=== PATIENT | male | born 1960 | race African-American/Black ===

== ENCOUNTER → 2016-06-13 | Outpatient (CLI) | payer MEDICARE, MEDICAID ==
[~2016-06-13] MED LIST: APRESOLINE 25MG25 MG PO; ASPIRIN 81M81 MG/TA2 PO; COREG 25MG25 MG/TAB PO; COZAAR100 MG PO; DEMADEX5 MG PO; IPRATROPIUM BROM3 M1 IH; LOZOL 2.5M2.5 MG/TAB PO; NORVASC 10MG10 MG PO; RT ADVAIR 528 DISKUS IH; RT SPIRIVA18 MCG IH; STIOLTO RESPIMAT4 GM IH; VENTOLIN0.09 MG IH; WELLBUTRIN XL150 MG PO; ZANTAC 150MG T150 MG PO
== END ==
LOC: COL.RAD 10:16
DX: R74.8 Abnormal levels of other serum enzymes (principal); N13.30 Unspecified hydronephrosis

== ENCOUNTER 2016-08-06 08:17 | Outpatient (RCR) | payer MEDICARE, OTHER ==
[~2016-08-06 08:17] MED LIST changes: -LOZOL 2.5M2.5 MG/TAB PO; -STIOLTO RESPIMAT4 GM IH; -WELLBUTRIN XL150 MG PO
[2016-10-22] MEDS ORDERED: WELLBUTRIN XL150 MG PO (09:25)
[2016-10-22] MEDS ORDERED: STIOLTO RESPIMAT4 GM IH (09:25)
[2016-10-22] MEDS ORDERED: LOZOL 2.5M2.5 MG/TAB PO (09:26)
== END 2016-11-04 | disposition home or self-care (01) ==
LOC: WSST
DX: R13.10 Dysphagia, unspecified (principal)
CPT/HCPCS: G8996-GN; G8997-GN; G8998-GN

== ENCOUNTER → 2016-08-07 | Outpatient (CLI) | payer MEDICARE, OTHER ==
[~2016-08-07] MED LIST changes: +LOZOL 2.5M2.5 MG/TAB PO; +STIOLTO RESPIMAT4 GM IH; +WELLBUTRIN XL150 MG PO
== END ==
LOC: COL.RAD 09:40
DX: R13.10 Dysphagia, unspecified (principal)
CPT/HCPCS: G8996-GN; G8997-GN; G8998-GN

== ENCOUNTER → 2016-08-28 | Outpatient (CLI) | payer MEDICARE, OTHER | LOC: COL.RAD 08:11 | DX: N13.2 Hydronephrosis with renal and ureteral calculous obstruction (principal); R91.1 Solitary pulmonary nodule | CPT/HCPCS: Q9967 ==

== ENCOUNTER → 2016-09-03 | Outpatient (CLI) | payer MEDICARE, OTHER | LOC: COL.RAD 10:17 | DX: N13.0 Hydronephrosis with ureteropelvic junction obstruction (principal) | CPT/HCPCS: A9562 ==

== ENCOUNTER 2016-09-23 14:29 | Inpatient (IN) | payer MEDICARE, OTHER ==
[~2016-09-23] VITALS: Ht 167.6 cm; Wt 83.4 kg
[~2016-09-23 14:29] MED LIST changes: -LOZOL 2.5M2.5 MG/TAB PO; -STIOLTO RESPIMAT4 GM IH; -WELLBUTRIN XL150 MG PO
[2016-10-22] VITALS (502 sets, daily range): BP systolic 101–185; BP diastolic 45–125; PULSE 76–100; TEMP 98–98.4; O2SAT 92–100
[2016-10-22] MEDS ORDERED: WELLBUTRIN XL150 MG PO (09:25)
[2016-10-22] MEDS ORDERED: STIOLTO RESPIMAT4 GM IH (09:25)
[2016-10-22] MEDS ORDERED: LOZOL 2.5M2.5 MG/TAB PO (09:26)
[2016-10-22 10:30] LABS: CALCIUM 9.1 mg/dL (8.4-10.2); CREATININE, serum 1.34 mg/dL (0.66-1.25)
[2016-10-22 10:34] LABS: POTASSIUM 2.9 mmol/L (3.4-5.0)
[2016-10-22 15:01] LABS: CALCIUM 8.2 mg/dL (8.4-10.2); CREATININE, serum 1.75 mg/dL (0.66-1.25); POTASSIUM 3.9 mmol/L (3.4-5.0)
[2016-10-22 15:57] LABS: ARTERIAL BLD GAS O2 SATURATION 97.4 % (92-100); ARTERIAL BLD GAS TCO2 CT 25.1; ARTERIAL BLOOD GAS BASE EXCESS -2.3 (-2-2); ARTERIAL BLOOD GAS HCO3 23.7 meq/L (22-26); ARTERIAL BLOOD GAS pH 7.34 (7.35-7.45); OXYHEMOGLOBIN 96.6 %
[2016-10-22 15:58] LABS: ABG VENTILATOR TIDAL VOLUME 650 mL; ATS? YES
[2016-10-22 16:24] LABS: ADJUSTED CALCIUM 8.1 mg/dL (8.4-10.2); ALBUMIN 4.1 gm/dL (3.5-5.0); BILIRUBIN,TOTAL 1.1 mg/dL (0.0-1.0); CALCIUM 8.2 mg/dL (8.4-10.2); CREATININE, serum 1.59 mg/dL (0.66-1.25); POTASSIUM 3.7 mmol/L (3.4-5.0); TOTAL PROTEIN 7.2 gm/dL (6.4-8.2)
[2016-10-22 19:04] LABS: ARTERIAL BLD GAS O2 SATURATION 98.3 % (92-100); ARTERIAL BLOOD GAS BASE EXCESS 0.7 (-2-2); ARTERIAL BLOOD GAS HCO3 25.7 meq/L (22-26); OXYHEMOGLOBIN 97.5 %
[2016-10-22 19:06] LABS: ALLEN TEST NO; ARTERIAL BLOOD GAS PO2 126.6 mmHg (80-100); ARTERIAL BLOOD GAS PO2T 126.6 (80-100); ATS? NO
[2016-10-22 20:16] LABS: LACTATE DEHYDROGENASE 618 U/L (313-618)
[2016-10-22 20:25] LABS: TROPONIN-I < 0.012 ng/mL (0.000-0.034)
[2016-10-23] VITALS (633 sets, daily range): BP systolic 129–175; BP diastolic 74–107; PULSE 86–113; TEMP 97.8–98.4; O2SAT 80–100
[2016-10-23 05:03] LABS: ARTERIAL BLD GAS O2 SATURATION 97.4 % (92-100); ARTERIAL BLD GAS TCO2 CT 23.6; ARTERIAL BLOOD GAS HCO3 22.6 meq/L (22-26); ARTERIAL BLOOD GAS PHT 7.44 C (7.35-7.45); ARTERIAL BLOOD GAS PO2 97.3 mmHg (80-100); ARTERIAL BLOOD GAS PO2T 97.3 (80-100); ARTERIAL BLOOD GAS pH 7.44 (7.35-7.45); OXYHEMOGLOBIN 96.6 %
[2016-10-23 05:04] LABS: ALLEN TEST NO; ATS? NO
[2016-10-23 06:28] LABS: CALCIUM 8.3 mg/dL (8.4-10.2); CREATININE, serum 1.45 mg/dL (0.66-1.25); POTASSIUM 3.3 mmol/L (3.4-5.0)
[2016-10-23 11:06] LABS: BASO % 0.1 % (0.0-2.0); GRAN # 9.5 (1.4-6.5); GRAN % 80.3 % (42.2-75.2); HEMATOCRIT 42.3 % (42.0-52.0); HEMOGLOBIN 14.2 g/dl (13.5-18.0); LYMPH # 1.3 (1.2-3.4); LYMPH % 11.3 % (20.0-51.0); MEAN CELL VOLUME 95 fl (80.0-100.0); MEAN CORPUSCULAR HEMOGLOBIN 32 pg (27.0-31.0); MEAN CORPUSCULAR HGB CONC 34 g/dl (33.0-37.0); MEAN PLATELET VOLUME 10.8 fl (7.4-10.4); MONO # 0.9 (0.1-0.6); MONO % 7.8 % (1.7-9.3); PLATELET COUNT 281 K/mm3 (130-400); RED BLOOD COUNT 4.45 M/mm3 (4.20-5.60); REDCELL DISTRIBUTION WIDTH-CV 14.6 % (11.5-14.5); WHITE BLOOD COUNT 11.8 K/mm3 (4.8-10.8)
[2016-10-24 02:12] VITALS: BP 146/79; PULSE 78; TEMP 98.5
[2016-10-24 05:43] VITALS: BP 142/95; PULSE 75; TEMP 97.9
[2016-10-24 08:53] LABS: CALCIUM 9.2 mg/dL (8.4-10.2); CREATININE, serum 1.54 mg/dL (0.66-1.25); POTASSIUM 4.2 mmol/L (3.4-5.0)
[2016-10-24 09:35] VITALS: BP 122/90; PULSE 78; TEMP 96.9
[2016-10-24 13:57] VITALS: BP 149/88; PULSE 81; TEMP 97.7
== END 2016-10-24 17:25 | disposition home or self-care (01) | DRG 659 ==
LOC: OR 10-22 08:54 → ICU 10-22 08:54 → SURG 10-22 16:00
PROVIDERS: Anesthesiology Critical Care Medicine; Internal Medicine; Internal Medicine Cardiovascular Disease; Internal Medicine Critical Care Medicine; Nurse Anesthetist, Certified Registered; Urology
PROC: 0TB64ZX Excision of Right Ureter, Percutaneous Endoscopic Approach, Diagnostic (ICD-10-PCS; 2016-10-22)
PROC: 8E0W4CZ Robotic Assisted Procedure of Trunk Region, Percutaneous Endoscopic Approach (ICD-10-PCS; 2016-10-22)
PROC: 0T764DZ Dilation of Right Ureter with Intraluminal Device, Percutaneous Endoscopic Approach (ICD-10-PCS; 2016-10-22)
PROC: 0TS64ZZ Reposition Right Ureter, Percutaneous Endoscopic Approach (ICD-10-PCS; principal; 2016-10-22 16:00)
DX: N13.2 Hydronephrosis with renal and ureteral calculous obstruction (principal); J96.01 Acute respiratory failure with hypoxia; I42.0 Dilated cardiomyopathy; J44.9 Chronic obstructive pulmonary disease, unspecified; I10 Essential (primary) hypertension; Z87.891 Personal history of nicotine dependence; I16.0 Hypertensive urgency; J98.01 Acute bronchospasm; N17.9 Acute kidney failure, unspecified; T44.4X5A Adverse effect of predominantly alpha-adrenoreceptor agonists, initial encounter
CPT/HCPCS: 99223-AI; 99232-AI; 99233-AI; A4315; C1769; C2617; J0360; J0690; J1100; J1650; J1885; J2270; J2370; J2405; J2710; J3010; J3480; J7030; J7120

== ENCOUNTER → 2017-04-28 | Outpatient (CLI) | payer MEDICARE, OTHER ==
[~2017-04-28] MED LIST changes: +LOZOL 2.5M2.5 MG/TAB PO; +STIOLTO RESPIMAT4 GM IH; +WELLBUTRIN XL150 MG PO
== END ==
LOC: COL.RAD 10:55 → COL.VAS 12:30
DX: R91.1 Solitary pulmonary nodule (principal); N13.30 Unspecified hydronephrosis; I36.1 Nonrheumatic tricuspid (valve) insufficiency; I10 Essential (primary) hypertension; R06.00 Dyspnea, unspecified

== ENCOUNTER → 2017-09-21 | Outpatient (CLI) | payer MEDICARE, OTHER ==
[~2017-09-21] MED LIST changes: +DUO-KAPS1 CAP PO; +FOLIC ACID 11 MG/TA1 PO; +PERFOROMIS20 MCG/2 M IH; +PREDNISONE20 MG PO; +PULMICORT90 MCG/Act IH; +THIAMINE 1100 MG/TAB PO
== END ==
LOC: MHCPAIN 08:47
DX: G89.29 Other chronic pain (principal); M54.12 Radiculopathy, cervical region; M47.812 Spondylosis without myelopathy or radiculopathy, cervical region
CPT/HCPCS: G0463

== ENCOUNTER → 2017-10-20 | Outpatient (CLI) | payer MEDICARE, OTHER | LOC: MHCPAIN 08:27 | DX: G89.29 Other chronic pain (principal); M50.90 Cervical disc disorder, unspecified, unspecified cervical region; M54.12 Radiculopathy, cervical region | CPT/HCPCS: G0463 ==

== ENCOUNTER → 2017-11-04 | Outpatient (CLI) | payer MEDICARE, OTHER | LOC: COL.VAS 08:36 | DX: I36.1 Nonrheumatic tricuspid (valve) insufficiency (principal); J44.9 Chronic obstructive pulmonary disease, unspecified ==

== ENCOUNTER → 2017-12-01 | Outpatient (CLI) | payer MEDICARE, OTHER | LOC: MHCPAIN 11:06 | DX: G89.29 Other chronic pain (principal); M50.322 Other cervical disc degeneration at C5-C6 level; M54.12 Radiculopathy, cervical region | CPT/HCPCS: G0463 ==

== ENCOUNTER 2017-12-20 13:42 | Emergency (ER) | payer MEDICARE, OTHER ==
[~2017-12-20] VITALS: Ht 167.6 cm; Wt 86.4 kg
[2017-12-20 13:47] VITALS: TEMP 98.5
[2017-12-20] MEDS ORDERED: PULMICORT90 MCG/Act IH (14:03)
[2017-12-20] MEDS ORDERED: NORVASC 10MG10 MG PO (14:03)
[2017-12-20] MEDS ORDERED: PERFOROMIS20 MCG/2 M IH (14:04)
[2017-12-20] MEDS ORDERED: APRESOLINE 25MG25 MG PO (14:05)
[2017-12-20] MEDS ORDERED: BREO IH (14:07)
[2017-12-20] MEDS ORDERED: GRALISE600 MG PO (14:08)
[2017-12-20] MEDS ORDERED: CAVERJECT40 MCG (14:16)
[2017-12-20 16:16] VITALS: BP 159/123; PULSE 85
== END 2017-12-20 16:16 | disposition home or self-care (01) ==
LOC: COL.ER 13:42
DX: N48.89 Other specified disorders of penis (principal); T46.7X5A Adverse effect of peripheral vasodilators, initial encounter; J44.9 Chronic obstructive pulmonary disease, unspecified; I10 Essential (primary) hypertension; Z79.51 Long term (current) use of inhaled steroids
CPT/HCPCS: J1170; J2405; J7030

== ENCOUNTER 2017-12-30 12:13 | Inpatient (IN) | payer MEDICARE, OTHER ==
[~2017-12-30] VITALS: Ht 167.6 cm; Wt 82.5 kg
[~2017-12-30 12:13] MED LIST changes: +BREO IH; +CAVERJECT40 MCG; +NEURONTIN600 MG/TAB PO
[2017-12-30 12:52] LABS: BASO % 0.2 % (0.0-2.0); GRAN # 13.8 (1.4-6.5); GRAN % 82.5 % (42.2-75.2); HEMATOCRIT 48.9 % (42.0-52.0); HEMOGLOBIN 16.7 g/dl (13.5-18.0); LYMPH # 1.9 (1.2-3.4); LYMPH % 11.4 % (20.0-51.0); MEAN CELL VOLUME 94 fl (80.0-100.0); MEAN CORPUSCULAR HEMOGLOBIN 32 pg (27.0-31.0); MEAN CORPUSCULAR HGB CONC 34 g/dl (33.0-37.0); MONO # 0.8 (0.1-0.6); MONO % 4.6 % (1.7-9.3); PLATELET COUNT 436 K/mm3 (130-400); RED BLOOD COUNT 5.22 M/mm3 (4.20-5.60); REDCELL DISTRIBUTION WIDTH-CV 14.4 % (11.5-14.5)
[2017-12-30] MEDS ORDERED: AMOXICILLIN 8751 TAB PO (13:14)
[2017-12-30] MEDS ORDERED: PREDNISONE20 MG PO (13:15)
[2017-12-30 13:25] LABS: ALANINE AMINOTRANSFERASE 18 U/L (21-72); ALBUMIN 4.4 gm/dL (3.5-5.0); ALKALINE PHOSPHATASE 76 U/L (50-136); ANION GAP 18 mmol/L (7-16); AST,SGOT 36 U/L (15-37); BILIRUBIN,TOTAL 0.5 mg/dL (0.0-1.0); BLOOD UREA NITROGEN 20 mg/dL (9-20); CALCIUM 9.8 mg/dL (8.4-10.2); CARBON DIOXIDE 24 mmol/L (22-30); CHLORIDE 97 mmol/L (98-107); CREATININE, serum 1.14 mg/dL (0.66-1.25); GLUCOSE 164 mg/dL (74-106); LIPASE 90 U/L (23-300); POTASSIUM 3.1 mmol/L (3.4-5.0); SODIUM 139 mmol/L (137-145)
[2017-12-30 13:44] LABS: TROPONIN-I < 0.012 ng/mL (0.000-0.034)
[2017-12-30 15:12] LABS: PROTHROMBIN TIME 11.2 SECONDS (9.7-12.8)
[2017-12-30 15:15] LABS: PARTIAL THROMBOPLASTIN TIME 34.7 SECONDS (26.0-37.0)
[2017-12-30 17:01] VITALS: BP 151/87; PULSE 51; TEMP 98
[2017-12-30 20:25] VITALS: BP 138/83; PULSE 110; TEMP 98
[2017-12-31] VITALS (8 sets, daily range): BP systolic 142–163; BP diastolic 87–111; PULSE 52–108; TEMP 97.3–98.6
[2017-12-31 07:25] LABS: MEAN CELL VOLUME 97 fl (80.0-100.0); MEAN CORPUSCULAR HEMOGLOBIN 32 pg (27.0-31.0); MEAN CORPUSCULAR HGB CONC 33 g/dl (33.0-37.0); MEAN PLATELET VOLUME 10.3 fl (7.4-10.4); PLATELET COUNT 412 K/mm3 (130-400); RED BLOOD COUNT 4.76 M/mm3 (4.20-5.60); REDCELL DISTRIBUTION WIDTH-CV 14.5 % (11.5-14.5)
[2017-12-31 07:30] LABS: CALCIUM 9.1 mg/dL (8.4-10.2); CREATININE, serum 1.2 mg/dL (0.66-1.25); POTASSIUM 3.6 mmol/L (3.4-5.0)
[2017-12-31 08:49] LABS: BAND 3 % (0-10); LYMPHOCYTE 19 % (20.0-51.0); NEUTROPHILS 73 % (42.0-75.2)
[2017-12-31 08:50] LABS: PLATELET ESTIMATE INCREASED (NORMAL)
[2017-12-31 08:51] LABS: HYPOCHROMIA 1+
[2017-12-31 15:34] LABS: ARTERIAL BLD GAS O2 SATURATION 93.5 % (92-100); ARTERIAL BLD GAS TCO2 CT 23.3; ARTERIAL BLOOD GAS BASE EXCESS -0.5 (-2-2); ARTERIAL BLOOD GAS HCO3 22.4 meq/L (22-26); ARTERIAL BLOOD GAS PCO2 32.3 mmHg (35-45); ARTERIAL BLOOD GAS PO2 61.3 mmHg (80-100); ARTERIAL BLOOD GAS pH 7.46 (7.35-7.45)
[2018-01-01] VITALS (78 sets, daily range): BP systolic 120–157; BP diastolic 90–122; PULSE 60–115; TEMP 97.3–98.9; O2SAT 87–97
[2018-01-01 07:06] LABS: HEMOGLOBIN 15.4 g/dl (13.5-18.0); MEAN CELL VOLUME 96 fl (80.0-100.0); MEAN CORPUSCULAR HEMOGLOBIN 31 pg (27.0-31.0); MEAN CORPUSCULAR HGB CONC 33 g/dl (33.0-37.0); MEAN PLATELET VOLUME 10.2 fl (7.4-10.4); PLATELET COUNT 374 K/mm3 (130-400); REDCELL DISTRIBUTION WIDTH-CV 14.7 % (11.5-14.5)
[2018-01-01 07:09] LABS: CALCIUM 9.6 mg/dL (8.4-10.2); CREATININE, serum 1.03 mg/dL (0.66-1.25); MAGNESIUM 2.2 mg/dL (1.6-2.3); POTASSIUM 3.6 mmol/L (3.4-5.0)
[2018-01-01 09:16] LABS: BAND 6 % (0-10); LYMPHOCYTE 25 % (20.0-51.0); NEUTROPHILS 66 % (42.0-75.2); PLATELET ESTIMATE NORMAL (NORMAL)
[2018-01-01 13:57] LABS: ARTERIAL BLD GAS O2 SATURATION 93.6 % (92-100); ARTERIAL BLD GAS TCO2 CT 23.9; ARTERIAL BLOOD GAS BASE EXCESS -0.1 (-2-2); ARTERIAL BLOOD GAS HCO3 22.9 meq/L (22-26); ARTERIAL BLOOD GAS PCO2 33.1 mmHg (35-45); ARTERIAL BLOOD GAS PO2 68.2 mmHg (80-100); ARTERIAL BLOOD GAS pH 7.46 (7.35-7.45)
[2018-01-02] VITALS (7 sets, daily range): BP systolic 130–158; BP diastolic 92–128; PULSE 78–104; TEMP 97.8–98.3
[2018-01-02 05:33] LABS: BASO % 0.2 % (0.0-2.0); GRAN # 16.4 (1.4-6.5); GRAN % 87.8 % (42.2-75.2); HEMATOCRIT 44.4 % (42.0-52.0); LYMPH # 1.2 (1.2-3.4); LYMPH % 6.2 % (20.0-51.0); MEAN CELL VOLUME 95 fl (80.0-100.0); MEAN CORPUSCULAR HEMOGLOBIN 32 pg (27.0-31.0); MEAN CORPUSCULAR HGB CONC 34 g/dl (33.0-37.0); MEAN PLATELET VOLUME 10.2 fl (7.4-10.4); MONO # 0.7 (0.1-0.6); MONO % 3.9 % (1.7-9.3); PLATELET COUNT 312 K/mm3 (130-400); REDCELL DISTRIBUTION WIDTH-CV 14.7 % (11.5-14.5)
[2018-01-02 05:46] LABS: CALCIUM 9.3 mg/dL (8.4-10.2); CREATININE, serum 1.1 mg/dL (0.66-1.25); MAGNESIUM 2.4 mg/dL (1.6-2.3)
[2018-01-02 09:31] LABS: ARTERIAL BLD GAS O2 SATURATION 93.6 % (92-100); ARTERIAL BLD GAS TCO2 CT 26.2; ARTERIAL BLOOD GAS BASE EXCESS 1.4 (-2-2); ARTERIAL BLOOD GAS PCO2 36.7 mmHg (35-45); ARTERIAL BLOOD GAS PO2 68.5 mmHg (80-100); ARTERIAL BLOOD GAS pH 7.45 (7.35-7.45)
[2018-01-03] VITALS: BP 148/104; PULSE 85; TEMP 97
[2018-01-03 03:42] LABS: HEMATOCRIT 42.2 % (42.0-52.0); HEMOGLOBIN 14.2 g/dl (13.5-18.0); MEAN CELL VOLUME 95 fl (80.0-100.0); MEAN CORPUSCULAR HEMOGLOBIN 32 pg (27.0-31.0); MEAN CORPUSCULAR HGB CONC 34 g/dl (33.0-37.0); MEAN PLATELET VOLUME 10.3 fl (7.4-10.4); PLATELET COUNT 279 K/mm3 (130-400); RED BLOOD COUNT 4.46 M/mm3 (4.20-5.60); REDCELL DISTRIBUTION WIDTH-CV 14.9 % (11.5-14.5)
[2018-01-03 03:55] LABS: CREATININE, serum 1.19 mg/dL (0.66-1.25); POTASSIUM 3.7 mmol/L (3.4-5.0)
[2018-01-03 04:00] VITALS: BP 148/105; PULSE 79; TEMP 97.7
[2018-01-03 04:01] LABS: BAND 2 % (0-10); LYMPHOCYTE 5 % (20.0-51.0); NEUTROPHILS 90 % (42.0-75.2); PLATELET ESTIMATE NORMAL (NORMAL)
[2018-01-03 08:00] VITALS: BP 165/129; PULSE 80; TEMP 98
[2018-01-03 12:00] VITALS: BP 140/97; PULSE 96; TEMP 98.1
[2018-01-03 16:00] VITALS: BP 137/99; PULSE 94; TEMP 98.1
[2018-01-03 20:00] VITALS: BP 126/107; PULSE 100; TEMP 98.1
[2018-01-04] VITALS (9 sets, daily range): BP systolic 102–177; BP diastolic 78–122; PULSE 67–88; TEMP 97.6–98
[2018-01-04 11:38] LABS: ARTERIAL BLD GAS TCO2 CT 30.7; ARTERIAL BLOOD GAS BASE EXCESS 2.7 (-2-2); ARTERIAL BLOOD GAS HCO3 29.1 meq/L (22-26); ARTERIAL BLOOD GAS PCO2 51.2 mmHg (35-45); ARTERIAL BLOOD GAS pH 7.37 (7.35-7.45)
[2018-01-04 11:39] LABS: ARTERIAL BLOOD GAS PO2 255.8 mmHg (80-100)
[2018-01-04 11:50] LABS: HEMATOCRIT 46.5 % (42.0-52.0); HEMOGLOBIN 15.6 g/dl (13.5-18.0); MEAN CELL VOLUME 95 fl (80.0-100.0); MEAN CORPUSCULAR HEMOGLOBIN 32 pg (27.0-31.0); MEAN CORPUSCULAR HGB CONC 34 g/dl (33.0-37.0); MEAN PLATELET VOLUME 10.3 fl (7.4-10.4); PLATELET COUNT 308 K/mm3 (130-400); RED BLOOD COUNT 4.91 M/mm3 (4.20-5.60); REDCELL DISTRIBUTION WIDTH-CV 14.9 % (11.5-14.5)
[2018-01-04 12:11] LABS: CALCIUM 9.2 mg/dL (8.4-10.2); CREATININE, serum 1.1 mg/dL (0.66-1.25); MAGNESIUM 2.5 mg/dL (1.6-2.3); POTASSIUM 3.7 mmol/L (3.4-5.0)
[2018-01-04 12:20] LABS: BAND 3 % (0-10); LYMPHOCYTE 7 % (20.0-51.0); NEUTROPHILS 89 % (42.0-75.2)
[2018-01-04 12:21] LABS: PLATELET ESTIMATE NORMAL (NORMAL)
== END 2018-01-04 14:00 | disposition short-term general hospital (02) | DRG 871 ==
LOC: COL.ER 12:13 → ICU 15:10 → MEDICAL 15:10 → ICU 01-01 15:48
PROVIDERS: Emergency Medicine; Family Medicine; Internal Medicine Critical Care Medicine; Internal Medicine Pulmonary Disease; Physician Assistant
PROC: 5A1935Z Respiratory Ventilation, Less than 24 Consecutive Hours (ICD-10-PCS; 2018-01-04)
PROC: 0B988ZX Drainage of Left Upper Lobe Bronchus, Via Natural or Artificial Opening Endoscopic, Diagnostic (ICD-10-PCS; 2018-01-04)
PROC: 0B9B8ZX Drainage of Left Lower Lobe Bronchus, Via Natural or Artificial Opening Endoscopic, Diagnostic (ICD-10-PCS; 2018-01-04)
PROC: 0B958ZX Drainage of Right Middle Lobe Bronchus, Via Natural or Artificial Opening Endoscopic, Diagnostic (ICD-10-PCS; 2018-01-04)
PROC: 0BB38ZX Excision of Right Main Bronchus, Via Natural or Artificial Opening Endoscopic, Diagnostic (ICD-10-PCS; 2018-01-04)
PROC: 0BH18EZ Insertion of Endotracheal Airway into Trachea, Via Natural or Artificial Opening Endoscopic (ICD-10-PCS; principal; 2018-01-04 10:00)
DX: A41.9 Sepsis, unspecified organism (principal); J18.9 Pneumonia, unspecified organism; J96.21 Acute and chronic respiratory failure with hypoxia; J44.0 Chronic obstructive pulmonary disease with (acute) lower respiratory infection; I42.0 Dilated cardiomyopathy; J44.1 Chronic obstructive pulmonary disease with (acute) exacerbation; N13.30 Unspecified hydronephrosis; D38.1 Neoplasm of uncertain behavior of trachea, bronchus and lung; I16.0 Hypertensive urgency; I10 Essential (primary) hypertension; Z87.891 Personal history of nicotine dependence; E87.6 Hypokalemia; R73.9 Hyperglycemia, unspecified
CPT/HCPCS: 99222; 99223-AI; 99232-AI; 99233-AI; 99239; C1751; C1894; J0330; J1650; J1815; J1956; J2250; J2270; J2543; J2704; J2920; J2930; J3010; J3370; J3480; J7030; J7040; J7050; J7512; P9047; Q9967

== ENCOUNTER → 2018-03-17 | Outpatient (CLI) | payer MEDICARE, OTHER ==
[~2018-03-17] MED LIST changes: +AMOXICILLIN 8751 TAB PO; +[UNRECOGNIZED DRUG - OTHER] PO
== END ==
LOC: MHCPAIN 13:45
DX: G89.29 Other chronic pain (principal); M50.90 Cervical disc disorder, unspecified, unspecified cervical region; M54.12 Radiculopathy, cervical region
CPT/HCPCS: G0463

== ENCOUNTER 2018-04-16 01:22 | Emergency (ER) | payer MEDICARE, OTHER, MEDICAID ==
[~2018-04-16] VITALS: Ht 167.6 cm; Wt 86.4 kg
[2018-04-16 01:59] LABS: BASO % 0.2 % (0.0-2.0); EOS % 0.5 % (0-4.0); GRAN # 4.6 (1.4-6.5); GRAN % 69.6 % (42.2-75.2); HEMATOCRIT 33.1 % (42.0-52.0); HEMOGLOBIN 11.4 g/dl (13.5-18.0); LYMPH # 0.9 (1.2-3.4); LYMPH % 14.1 % (20.0-51.0); MEAN CELL VOLUME 102 fl (80.0-100.0); MEAN CORPUSCULAR HEMOGLOBIN 35 pg (27.0-31.0); MEAN CORPUSCULAR HGB CONC 34 g/dl (33.0-37.0); MEAN PLATELET VOLUME 9.8 fl (7.4-10.4); MONO % 14.7 % (1.7-9.3); PLATELET COUNT 249 K/mm3 (130-400); RED BLOOD COUNT 3.26 M/mm3 (4.20-5.60); REDCELL DISTRIBUTION WIDTH-CV 19.6 % (11.5-14.5)
[2018-04-16 02:00] VITALS: TEMP 99.1
[2018-04-16 02:07] LABS: INR 0.9 (0.8-3.0); PROTHROMBIN TIME 10.6 SECONDS (9.7-12.8)
[2018-04-16 02:10] LABS: PARTIAL THROMBOPLASTIN TIME 34.8 SECONDS (26.0-37.0)
[2018-04-16 02:12] LABS: ALANINE AMINOTRANSFERASE 30 U/L (21-72); ALBUMIN 4.1 gm/dL (3.5-5.0); ALKALINE PHOSPHATASE 74 U/L (50-136); ANION GAP 9 mmol/L (7-16); AST,SGOT 19 U/L (15-37); BILIRUBIN,TOTAL 0.3 mg/dL (0.0-1.0); BLOOD UREA NITROGEN 14 mg/dL (9-20); CALCIUM 9.4 mg/dL (8.4-10.2); CARBON DIOXIDE 31 mmol/L (22-30); CHLORIDE 100 mmol/L (98-107); CREATINE KINASE 70 U/L (55-170); CREATININE, serum 1.33 mg/dL (0.66-1.25); GLUCOSE 138 mg/dL (74-106); LIPASE 87 U/L (23-300); POTASSIUM 3.3 mmol/L (3.4-5.0); SODIUM 139 mmol/L (137-145); TOTAL PROTEIN 7.1 gm/dL (6.4-8.2)
[2018-04-16] MEDS ORDERED: NORCO 325 MG-51 TAB PO (02:19)
[2018-04-16 02:25] LABS: TROPONIN-I < 0.012 ng/mL (0.000-0.034)
[2018-04-16 05:00] VITALS: BP 133/94; PULSE 99
== END 2018-04-16 05:17 | disposition home or self-care (01) ==
LOC: COL.ER 01:22
PROVIDERS: Emergency Medicine
DX: R07.89 Other chest pain (principal); I10 Essential (primary) hypertension; J44.9 Chronic obstructive pulmonary disease, unspecified; Z98.890 Other specified postprocedural states; Z85.118 Personal history of other malignant neoplasm of bronchus and lung; Z79.51 Long term (current) use of inhaled steroids
CPT/HCPCS: J1644; J2270; J7030; Q9967

== ENCOUNTER 2018-04-26 09:00 | Outpatient (RCR) | payer MEDICARE, OTHER, MEDICAID ==
[2018-01-27 10:34] LABS: HEMATOCRIT 40.6 % (42.0-52.0); HEMOGLOBIN 13.4 g/dl (13.5-18.0); MEAN CELL VOLUME 93 fl (80.0-100.0); MEAN CORPUSCULAR HEMOGLOBIN 31 pg (27.0-31.0); MEAN CORPUSCULAR HGB CONC 33 g/dl (33.0-37.0); MEAN PLATELET VOLUME 9.5 fl (7.4-10.4); PLATELET COUNT 534 K/mm3 (130-400); RED BLOOD COUNT 4.38 M/mm3 (4.20-5.60); REDCELL DISTRIBUTION WIDTH-CV 14.1 % (11.5-14.5)
[2018-01-27 10:40] VITALS: BP 198/92; PULSE 88; TEMP 98
[2018-01-27 11:00] LABS: BAND 5 % (0-10); EOSINOPHIL 1 % (0-4); LYMPHOCYTE 24 % (20.0-51.0); NEUTROPHILS 56 % (42.0-75.2); PLATELET ESTIMATE INCREASED (NORMAL)
[2018-01-28 09:13] VITALS: BP 146/84; PULSE 97; TEMP 98.6
[2018-02-01 08:58] LABS: HEMATOCRIT 43.7 % (42.0-52.0); HEMOGLOBIN 14.8 g/dl (13.5-18.0); MEAN CELL VOLUME 92 fl (80.0-100.0); MEAN CORPUSCULAR HEMOGLOBIN 31 pg (27.0-31.0); MEAN CORPUSCULAR HGB CONC 34 g/dl (33.0-37.0); MEAN PLATELET VOLUME 10.1 fl (7.4-10.4); PLATELET COUNT 452 K/mm3 (130-400); RED BLOOD COUNT 4.73 M/mm3 (4.20-5.60); REDCELL DISTRIBUTION WIDTH-CV 14.3 % (11.5-14.5)
[2018-02-01 09:13] LABS: BAND 2 % (0-10); LYMPHOCYTE 46 % (20.0-51.0); NEUTROPHILS 51 % (42.0-75.2); PLATELET ESTIMATE INCREASED (NORMAL)
[2018-02-01 09:37] VITALS: BP 114/86; PULSE 89; TEMP 98.2
[2018-02-08 09:07] LABS: HEMATOCRIT 40.4 % (42.0-52.0); HEMOGLOBIN 13.6 g/dl (13.5-18.0); MEAN CELL VOLUME 92 fl (80.0-100.0); MEAN CORPUSCULAR HEMOGLOBIN 31 pg (27.0-31.0); MEAN CORPUSCULAR HGB CONC 34 g/dl (33.0-37.0); MEAN PLATELET VOLUME 10.3 fl (7.4-10.4); PLATELET COUNT 311 K/mm3 (130-400); RED BLOOD COUNT 4.41 M/mm3 (4.20-5.60); REDCELL DISTRIBUTION WIDTH-CV 14.4 % (11.5-14.5)
[2018-02-08 09:17] VITALS: BP 125/88; PULSE 92; TEMP 98.2
[2018-02-08 09:22] LABS: BILIRUBIN,TOTAL 0.6 mg/dL (0.0-1.0); CALCIUM 9.3 mg/dL (8.4-10.2); CREATININE, serum 1.14 mg/dL (0.66-1.25); TOTAL PROTEIN 7.1 gm/dL (6.4-8.2)
[2018-02-08 09:25] LABS: POTASSIUM 2.8 mmol/L (3.4-5.0)
[2018-02-08 09:52] LABS: BAND 1 % (0-10); LYMPHOCYTE 15 % (20.0-51.0); NEUTROPHILS 84 % (42.0-75.2)
[2018-02-08 10:00] LABS: PLATELET ESTIMATE NORMAL (NORMAL)
[2018-02-15 09:27] LABS: HEMATOCRIT 39.4 % (42.0-52.0); HEMOGLOBIN 13.3 g/dl (13.5-18.0); MEAN CELL VOLUME 92 fl (80.0-100.0); MEAN CORPUSCULAR HEMOGLOBIN 31 pg (27.0-31.0); MEAN CORPUSCULAR HGB CONC 34 g/dl (33.0-37.0); MEAN PLATELET VOLUME 10.2 fl (7.4-10.4); PLATELET COUNT 170 K/mm3 (130-400); RED BLOOD COUNT 4.27 M/mm3 (4.20-5.60); REDCELL DISTRIBUTION WIDTH-CV 14.6 % (11.5-14.5)
[2018-02-15 09:30] LABS: CALCIUM 9.1 mg/dL (8.4-10.2); CREATININE, serum 1.04 mg/dL (0.66-1.25)
[2018-02-15 09:33] LABS: POTASSIUM 2.6 mmol/L (3.4-5.0)
[2018-02-15 09:36] VITALS: BP 130/89; PULSE 101; TEMP 97.9
[2018-02-15 09:55] LABS: LYMPHOCYTE 39 % (20.0-51.0); NEUTROPHILS 60 % (42.0-75.2)
[2018-02-18 13:50] VITALS: BP 123/93; PULSE 119; TEMP 98.7
[2018-02-18 13:51] LABS: HEMATOCRIT 38.5 % (42.0-52.0); HEMOGLOBIN 12.8 g/dl (13.5-18.0); MEAN CELL VOLUME 93 fl (80.0-100.0); MEAN CORPUSCULAR HEMOGLOBIN 31 pg (27.0-31.0); MEAN CORPUSCULAR HGB CONC 33 g/dl (33.0-37.0); MEAN PLATELET VOLUME 10.2 fl (7.4-10.4); PLATELET COUNT 169 K/mm3 (130-400); RED BLOOD COUNT 4.14 M/mm3 (4.20-5.60); REDCELL DISTRIBUTION WIDTH-CV 14.5 % (11.5-14.5)
[2018-02-18 13:57] LABS: CALCIUM 9.5 mg/dL (8.4-10.2); CREATININE, serum 0.96 mg/dL (0.66-1.25); MAGNESIUM 1.5 mg/dL (1.6-2.3); POTASSIUM 3.7 mmol/L (3.4-5.0)
[2018-02-18 14:14] LABS: BAND 5 % (0-10); LYMPHOCYTE 22 % (20.0-51.0); NEUTROPHILS 69 % (42.0-75.2)
[2018-02-18 14:15] LABS: PLATELET ESTIMATE NORMAL (NORMAL)
[2018-02-22 09:17] VITALS: BP 131/96; PULSE 110; TEMP 99
[2018-02-22 09:30] LABS: HEMATOCRIT 36.8 % (42.0-52.0); HEMOGLOBIN 12.2 g/dl (13.5-18.0); MEAN CELL VOLUME 94 fl (80.0-100.0); MEAN CORPUSCULAR HEMOGLOBIN 31 pg (27.0-31.0); MEAN CORPUSCULAR HGB CONC 33 g/dl (33.0-37.0); MEAN PLATELET VOLUME 10.4 fl (7.4-10.4); PLATELET COUNT 151 K/mm3 (130-400); RED BLOOD COUNT 3.92 M/mm3 (4.20-5.60); REDCELL DISTRIBUTION WIDTH-CV 15.1 % (11.5-14.5)
[2018-02-22 09:49] LABS: BAND 5 % (0-10); LYMPHOCYTE 27 % (20.0-51.0); NEUTROPHILS 62 % (42.0-75.2); NUCLEATED RED BLOOD CELL 1 (0-6); PLATELET ESTIMATE NORMAL (NORMAL)
[2018-03-01 09:19] LABS: HEMOGLOBIN 11.8 g/dl (13.5-18.0); MEAN CELL VOLUME 93 fl (80.0-100.0); MEAN CORPUSCULAR HEMOGLOBIN 32 pg (27.0-31.0); MEAN CORPUSCULAR HGB CONC 34 g/dl (33.0-37.0); PLATELET COUNT 177 K/mm3 (130-400); RED BLOOD COUNT 3.71 M/mm3 (4.20-5.60); REDCELL DISTRIBUTION WIDTH-CV 15.8 % (11.5-14.5)
[2018-03-01 09:20] LABS: HEMATOCRIT 34.5 % (42.0-52.0)
[2018-03-01 09:28] LABS: ALBUMIN 3.9 gm/dL (3.5-5.0); BILIRUBIN,TOTAL 0.5 mg/dL (0.0-1.0); CALCIUM 9.1 mg/dL (8.4-10.2); CREATININE, serum 1.03 mg/dL (0.66-1.25); POTASSIUM 3.5 mmol/L (3.4-5.0); TOTAL PROTEIN 6.6 gm/dL (6.4-8.2)
[2018-03-01 09:29] LABS: BAND 1 % (0-10); LYMPHOCYTE 14 % (20.0-51.0); METAMYELOCYTE 1 % (0-0); NEUTROPHILS 81 % (42.0-75.2); PLATELET ESTIMATE NORMAL (NORMAL)
[2018-03-01 09:37] VITALS: BP 125/72; PULSE 85; TEMP 97.9
[2018-03-08 08:58] LABS: HEMOGLOBIN 11.2 g/dl (13.5-18.0); MEAN CELL VOLUME 94 fl (80.0-100.0); MEAN CORPUSCULAR HEMOGLOBIN 32 pg (27.0-31.0); MEAN CORPUSCULAR HGB CONC 34 g/dl (33.0-37.0); MEAN PLATELET VOLUME 9.5 fl (7.4-10.4); PLATELET COUNT 178 K/mm3 (130-400); RED BLOOD COUNT 3.51 M/mm3 (4.20-5.60); REDCELL DISTRIBUTION WIDTH-CV 17.2 % (11.5-14.5)
[2018-03-08 08:59] LABS: HEMATOCRIT 33.1 % (42.0-52.0)
[2018-03-08 09:11] VITALS: BP 124/68; PULSE 78; TEMP 97.4
[2018-03-08 09:13] LABS: CALCIUM 9.4 mg/dL (8.4-10.2); CREATININE, serum 1.11 mg/dL (0.66-1.25); POTASSIUM 3.2 mmol/L (3.4-5.0)
[2018-03-08 10:06] LABS: BAND 3 % (0-10); LYMPHOCYTE 15 % (20.0-51.0); NEUTROPHILS 82 % (42.0-75.2)
[2018-03-08 10:07] LABS: PLATELET ESTIMATE NORMAL (NORMAL)
[2018-03-15 09:05] VITALS: BP 113/84; PULSE 119
[2018-03-15 09:23] LABS: HEMOGLOBIN 11.2 g/dl (13.5-18.0); MEAN CELL VOLUME 94 fl (80.0-100.0); MEAN CORPUSCULAR HEMOGLOBIN 33 pg (27.0-31.0); MEAN CORPUSCULAR HGB CONC 35 g/dl (33.0-37.0); MEAN PLATELET VOLUME 10.3 fl (7.4-10.4); PLATELET COUNT 205 K/mm3 (130-400); RED BLOOD COUNT 3.45 M/mm3 (4.20-5.60); REDCELL DISTRIBUTION WIDTH-CV 18.2 % (11.5-14.5)
[2018-03-15 09:36] LABS: HEMATOCRIT 32.5 % (42.0-52.0)
[2018-03-15 09:45] LABS: BAND 3 % (0-10); BASOPHIL 1 % (0-2); LYMPHOCYTE 27 % (20.0-51.0); MYELOCYTE 1 % (0-0); NEUTROPHILS 63 % (42.0-75.2); PLATELET ESTIMATE NORMAL (NORMAL)
[2018-03-15 09:46] LABS: ANISOCYTOSIS 1+
[2018-03-19 09:22] VITALS: BP 142/97; PULSE 112; TEMP 98.5
[2018-03-30 09:12] LABS: HEMOGLOBIN 10.4 g/dl (13.5-18.0); MEAN CELL VOLUME 100 fl (80.0-100.0); MEAN CORPUSCULAR HEMOGLOBIN 34 pg (27.0-31.0); MEAN CORPUSCULAR HGB CONC 34 g/dl (33.0-37.0); MEAN PLATELET VOLUME 9.4 fl (7.4-10.4); PLATELET COUNT 235 K/mm3 (130-400); RED BLOOD COUNT 3.07 M/mm3 (4.20-5.60); REDCELL DISTRIBUTION WIDTH-CV 22.3 % (11.5-14.5)
[2018-03-30 09:20] LABS: HEMATOCRIT 30.8 % (42.0-52.0)
[2018-03-30 09:21] VITALS: BP 137/91; PULSE 102; TEMP 98.4
[2018-03-30 09:29] LABS: ALBUMIN 4.1 gm/dL (3.5-5.0); BILIRUBIN,TOTAL 0.5 mg/dL (0.0-1.0); CREATININE, serum 1.15 mg/dL (0.66-1.25); POTASSIUM 3.8 mmol/L (3.4-5.0)
[2018-03-30 09:31] LABS: ANISOCYTOSIS 3+; BAND 7 % (0-10); LYMPHOCYTE 16 % (20.0-51.0); NEUTROPHILS 58 % (42.0-75.2); PLATELET ESTIMATE NORMAL (NORMAL); POLYCHROMASIA 1+
[2018-04-05 09:31] LABS: HEMOGLOBIN 10.9 g/dl (13.5-18.0); MEAN CELL VOLUME 103 fl (80.0-100.0); MEAN CORPUSCULAR HEMOGLOBIN 34 pg (27.0-31.0); MEAN CORPUSCULAR HGB CONC 33 g/dl (33.0-37.0); MEAN PLATELET VOLUME 9.9 fl (7.4-10.4); PLATELET COUNT 249 K/mm3 (130-400); RED BLOOD COUNT 3.22 M/mm3 (4.20-5.60)
[2018-04-05 09:42] VITALS: BP 163/109; PULSE 98; TEMP 97.8
[2018-04-05 09:46] LABS: HEMATOCRIT 33.3 % (42.0-52.0)
[2018-04-05 10:01] LABS: BAND 1 % (0-10); LYMPHOCYTE 11 % (20.0-51.0); METAMYELOCYTE 1 % (0-0); NEUTROPHILS 83 % (42.0-75.2); NUCLEATED RED BLOOD CELL 2 (0-6)
[2018-04-05 10:03] LABS: ANISOCYTOSIS 1+; PLATELET ESTIMATE NORMAL (NORMAL)
[2018-04-05 10:04] LABS: HYPOCHROMIA 1+
[2018-04-12 10:15] VITALS: BP 159/95; PULSE 104; TEMP 98.5
[2018-04-12 10:33] LABS: HEMATOCRIT 33.5 % (42.0-52.0); MEAN CELL VOLUME 105 fl (80.0-100.0); MEAN CORPUSCULAR HEMOGLOBIN 35 pg (27.0-31.0); MEAN CORPUSCULAR HGB CONC 33 g/dl (33.0-37.0); MEAN PLATELET VOLUME 10.1 fl (7.4-10.4); PLATELET COUNT 236 K/mm3 (130-400); RED BLOOD COUNT 3.19 M/mm3 (4.20-5.60); REDCELL DISTRIBUTION WIDTH-CV 21.2 % (11.5-14.5)
[2018-04-12 10:38] LABS: BILIRUBIN,TOTAL 0.4 mg/dL (0.0-1.0); CALCIUM 9.5 mg/dL (8.4-10.2); CREATININE, serum 1.15 mg/dL (0.66-1.25); POTASSIUM 3.1 mmol/L (3.4-5.0); TOTAL PROTEIN 6.9 gm/dL (6.4-8.2)
[2018-04-12 11:00] LABS: BAND 7 % (0-10); LYMPHOCYTE 10 % (20.0-51.0); NEUTROPHILS 72 % (42.0-75.2); PLATELET ESTIMATE NORMAL (NORMAL)
[2018-04-12 11:01] LABS: ANISOCYTOSIS 2+; STOMATOCYTE 1+
[2018-04-21 09:12] VITALS: BP 125/89; PULSE 113; TEMP 98
[2018-04-21 09:31] LABS: HEMOGLOBIN 11.2 g/dl (13.5-18.0); MEAN CELL VOLUME 104 fl (80.0-100.0); MEAN CORPUSCULAR HEMOGLOBIN 34 pg (27.0-31.0); MEAN CORPUSCULAR HGB CONC 33 g/dl (33.0-37.0); MEAN PLATELET VOLUME 9.9 fl (7.4-10.4); PLATELET COUNT 295 K/mm3 (130-400); RED BLOOD COUNT 3.32 M/mm3 (4.20-5.60); REDCELL DISTRIBUTION WIDTH-CV 18.6 % (11.5-14.5)
[2018-04-21 09:47] LABS: HEMATOCRIT 34.5 % (42.0-52.0)
[2018-04-21 10:13] LABS: ANISOCYTOSIS 2+; BAND 3 % (0-10); LYMPHOCYTE 12 % (20.0-51.0); NEUTROPHILS 77 % (42.0-75.2); PLATELET ESTIMATE NORMAL (NORMAL)
[~2018-04-26] VITALS: Ht 167.6 cm; Wt 85.9 kg
[~2018-04-26 09:00] MED LIST changes: +NORCO 325 MG-51 TAB PO
[2018-04-26 13:07] VITALS: BP 130/94; PULSE 105; TEMP 98.6
[2018-04-26 13:15] LABS: HEMOGLOBIN 11.2 g/dl (13.5-18.0); MEAN CELL VOLUME 102 fl (80.0-100.0); MEAN CORPUSCULAR HEMOGLOBIN 34 pg (27.0-31.0); MEAN CORPUSCULAR HGB CONC 33 g/dl (33.0-37.0); MEAN PLATELET VOLUME 9.8 fl (7.4-10.4); PLATELET COUNT 319 K/mm3 (130-400); REDCELL DISTRIBUTION WIDTH-CV 17.2 % (11.5-14.5)
[2018-04-26 13:19] LABS: HEMATOCRIT 33.7 % (42.0-52.0)
[2018-04-26 15:04] LABS: BAND 12 % (0-10); LYMPHOCYTE 10 % (20.0-51.0); NEUTROPHILS 72 % (42.0-75.2)
[2018-04-26 15:06] LABS: ANISOCYTOSIS 2+; MICROCYTOSIS 1+; PLATELET ESTIMATE INCREASED (NORMAL)
== END 2018-04-27 | disposition home or self-care (01) ==
LOC: EUO
PROVIDERS: Internal Medicine Medical Oncology
DX: C34.01 Malignant neoplasm of right main bronchus (principal); J44.9 Chronic obstructive pulmonary disease, unspecified; I10 Essential (primary) hypertension; Z45.2 Encounter for adjustment and management of vascular access device; Z95.9 Presence of cardiac and vascular implant and graft, unspecified
CPT/HCPCS: C1751

== ENCOUNTER → 2018-05-11 | Outpatient (CLI) | payer MEDICARE, OTHER, MEDICAID | LOC: MHCPAIN 08:03 | DX: G89.29 Other chronic pain (principal); M54.12 Radiculopathy, cervical region; M47.812 Spondylosis without myelopathy or radiculopathy, cervical region | CPT/HCPCS: G0463 ==

== ENCOUNTER 2018-05-30 20:03 | Inpatient (IN) | payer MEDICARE, OTHER, MEDICAID ==
[~2018-05-30] VITALS: Ht 167.6 cm; Wt 85.1 kg
[2018-05-30] VITALS (49 sets, daily range): BP systolic 146; BP diastolic 106; PULSE 134; TEMP 102.2; O2SAT 81–100
[2018-05-30 20:53] LABS: BASO % 0.1 % (0.0-2.0); EOS % 0.2 % (0-4.0); GRAN # 7.4 (1.4-6.5); GRAN % 88.6 % (42.2-75.2); HEMATOCRIT 38.4 % (42.0-52.0); LYMPH # 0.3 (1.2-3.4); LYMPH % 3.6 % (20.0-51.0); MEAN CELL VOLUME 96 fl (80.0-100.0); MEAN CORPUSCULAR HEMOGLOBIN 33 pg (27.0-31.0); MEAN CORPUSCULAR HGB CONC 34 g/dl (33.0-37.0); MEAN PLATELET VOLUME 9.7 fl (7.4-10.4); MONO # 0.6 (0.1-0.6); MONO % 6.7 % (1.7-9.3); PLATELET COUNT 290 K/mm3 (130-400); REDCELL DISTRIBUTION WIDTH-CV 13.7 % (11.5-14.5)
[2018-05-30 20:55] LABS: ARTERIAL BLD GAS O2 SATURATION 93.7 % (92-100); ARTERIAL BLD GAS TCO2 CT 28.8; ARTERIAL BLOOD GAS BASE EXCESS 4.9 (-2-2); ARTERIAL BLOOD GAS HCO3 27.7 meq/L (22-26); ARTERIAL BLOOD GAS PCO2 35.1 mmHg (35-45); ARTERIAL BLOOD GAS pH 7.52 (7.35-7.45)
[2018-05-30 21:02] LABS: ALBUMIN 4.1 gm/dL (3.5-5.0); BILIRUBIN,TOTAL 0.8 mg/dL (0.0-1.0); CALCIUM 9.2 mg/dL (8.4-10.2); CREATININE, serum 1.26 mg/dL (0.66-1.25); TOTAL PROTEIN 7.5 gm/dL (6.4-8.2)
[2018-05-30 21:03] LABS: INR 1.1 (0.8-3.0); PROTHROMBIN TIME 12.9 SECONDS (9.7-12.8)
[2018-05-30 21:06] LABS: POTASSIUM 2.9 mmol/L (3.4-5.0)
[2018-05-30 21:14] LABS: TROPONIN-I 0.014 ng/mL (0.000-0.034)
[2018-05-30] MEDS ORDERED: RT SPIRIVA18 MCG IH (21:39)
--- NOTE | 2018-05-30 23:15 | NUR ---
Admitted to ICU room 8 from ED. Pb FIGUEROA settles patient into bed and orients to room. Call light at side.
[2018-05-30] MEDS ORDERED: 00186-0370-20 IH (23:21)
[2018-05-30] MEDS ORDERED: SPIRIVA RE2.5 MCG/Ac IH (23:23)
--- NOTE | 2018-05-30 23:50 | NUR ---
Patient watching TV in bed. Denies needs at this time. Admission assessment completed and history reviewed. Complains of dull abdomen pain, denies need for med at this time. States has gone home for the night, pass code information given to patient to share with . Maude CRAWFORD notified of patien't arrival, new orders obtained at this time.
[2018-05-31] VITALS (574 sets, daily range): BP systolic 92–160; BP diastolic 61–101; PULSE 98–124; TEMP 98–103.1; O2SAT 30–100
[2018-05-31 00:18] LABS: PARTIAL THROMBOPLASTIN TIME 36.8 SECONDS (26.0-37.0)
[2018-05-31 01:39] LABS: COLLECTION METHOD CLEAN CATCH
[2018-05-31 01:44] LABS: PH 7 (5-8); SQUAMOUS EPITHELIAL None Seen /hpf; URINE APPEARANCE Clear; URINE BACTERIA None Seen /hpf; URINE BILIRUBIN Negative (NEGATIVE); URINE BLOOD Negative (NEGATIVE); URINE COLOR Yellow; URINE GLUCOSE Negative (NEGATIVE); URINE KETONE Negative (NEGATIVE); URINE LEUKOCYTE ESTERASE Negative (NEGATIVE); URINE NITRATE Negative (NEGATIVE); URINE PROTEIN(semi-quant) 1+ (NEGATIVE); URINE RBC None Seen /hpf; URINE UROBILINOGEN Negative (NEGATIVE)
[2018-05-31 05:24] LABS: HEMATOCRIT 38.7 % (42.0-52.0); HEMOGLOBIN 12.5 g/dl (13.5-18.0); MEAN CELL VOLUME 100 fl (80.0-100.0); MEAN CORPUSCULAR HEMOGLOBIN 32 pg (27.0-31.0); MEAN CORPUSCULAR HGB CONC 32 g/dl (33.0-37.0); PLATELET COUNT 228 K/mm3 (130-400); RED BLOOD COUNT 3.87 M/mm3 (4.20-5.60); REDCELL DISTRIBUTION WIDTH-CV 14.2 % (11.5-14.5)
[2018-05-31 05:41] LABS: CALCIUM 8.8 mg/dL (8.4-10.2); CREATININE, serum 1.63 mg/dL (0.66-1.25); POTASSIUM 3.8 mmol/L (3.4-5.0)
[2018-05-31 05:56] LABS: TROPONIN-I 0.058 ng/mL (0.000-0.034)
[2018-05-31 06:58] LABS: BAND 42 % (0-10); LYMPHOCYTE 4 % (20.0-51.0); NEUTROPHILS 50 % (42.0-75.2); NUCLEATED RED BLOOD CELL 1 (0-6)
[2018-05-31 06:59] LABS: PLATELET ESTIMATE NORMAL (NORMAL)
--- NOTE | 2018-05-31 07:20 | NUR ---
Bedside report received from CAROLINA Aguirre. Care of patient assumed at this time.
--- NOTE | 2018-05-31 08:00 | NUR ---
Patient assessment complete. Patient is dyspneic at rest. This nurse observes accessory muscle use and pursed-lip breathing; patient is currently on 2 L by nasal cannula. Patient reports pain with coughing. Will continue to monitor.
--- NOTE | 2018-05-31 10:24 | NUR ---
Initial visit; Patient and his thanked Personal Lines Appraiser for looking in on him and letting him know Personal Lines Appraiser will return when he is free. Personal Lines Appraiser offered God's blessings.
--- NOTE | 2018-05-31 13:30 | NUR ---
Patient intubation complete. Consent signed prior to intubation. Dr. Vicente, RT, and Zhanna, RN, at bedside in addition to this nurse. Patient is sedated with propofol and succinylcholine during procedure. Dr. Vicente attempts to intubate patient beginning at 1305. At 1315 Dr. Vicente asks for consultation with anesthesia. Anesthesia contacted, arrives. Patient successfully intubated at 1320.
--- NOTE | 2018-05-31 14:00 | NUR ---
Dr. Gaston here for RASHID. Bedside report received from CAROLINA Foster. Care assumed of patient at this time.
--- NOTE | 2018-05-31 14:00 | NUR ---
Dr. Gaston and ECHO at bedside for RASHID. Patient is intubated and sedated at this time. Report given to CAROLINA Macias.
[2018-05-31 15:04] LABS: ARTERIAL BLD GAS O2 SATURATION 95.1 % (92-100); ARTERIAL BLOOD GAS HCO3 22.8 meq/L (22-26); ARTERIAL BLOOD GAS PCO2 39.2 mmHg (35-45); ARTERIAL BLOOD GAS PO2 76.5 mmHg (80-100); ARTERIAL BLOOD GAS pH 7.38 (7.35-7.45)
[2018-05-31 15:15] LABS: CALCIUM 7.7 mg/dL (8.4-10.2); CREATININE, serum 1.61 mg/dL (0.66-1.25); MAGNESIUM 1.5 mg/dL (1.6-2.3); PHOSPHOROUS 3.4 mg/dL (2.5-4.5); POTASSIUM 4.5 mmol/L (3.4-5.0)
--- NOTE | 2018-05-31 15:44 | NUR ---
Follow-up visit; Patient intubated, Animal Herder offered prayer and comfort for his as well as patient. Animal Herder will continue to follow-up.
--- NOTE | 2018-05-31 16:00 | NUR ---
Assessment complete, patient intubated, heparin gtt restarted at 1000 units/hr, verified by CAROLINA Snyder. at bedside.
--- NOTE | 2018-05-31 16:24 | NUR ---
muffle worker met with patient's step daughter and offered support as patient's health status is poor at this time.
--- NOTE | 2018-05-31 17:00 | NUR ---
Patient awaiting transfer, no sedation vacation at this time.
--- NOTE | 2018-05-31 17:55 | NUR ---
Awaiting transfer to at this time.
--- NOTE | 2018-05-31 18:23 | NUR ---
Bed assignment received from [facility], BRENDA Macias notified. [facility] notified.
--- NOTE | 2018-05-31 18:49 | NUR ---
Report called to CESAR Jones RN.
--- NOTE | 2018-05-31 18:55 | NUR ---
[facility] here to transfer patient.
--- NOTE | 2018-05-31 19:44 | NUR ---
ALL paperwork and discs sent with patient. CESAR updated on ETA.
== END 2018-05-31 19:49 | disposition short-term general hospital (02) | DRG 314 ==
LOC: COL.ER 20:03 → ICU 22:19
PROVIDERS: Emergency Medicine; Internal Medicine Pulmonary Disease; Nurse Practitioner; ADMIT Internal Medicine
PROC: 0CJS8ZZ Inspection of Larynx, Via Natural or Artificial Opening Endoscopic (ICD-10-PCS; principal; 2018-05-31)
PROC: 5A1935Z Respiratory Ventilation, Less than 24 Consecutive Hours (ICD-10-PCS; 2018-05-31)
DX: T80.211A Bloodstream infection due to central venous catheter, initial encounter (principal); A41.52 Sepsis due to Pseudomonas; I33.0 Acute and subacute infective endocarditis; J96.01 Acute respiratory failure with hypoxia; J18.9 Pneumonia, unspecified organism; R65.20 Severe sepsis without septic shock; I42.0 Dilated cardiomyopathy; I47.1 Supraventricular tachycardia; N17.9 Acute kidney failure, unspecified; C34.31 Malignant neoplasm of lower lobe, right bronchus or lung; I76 Septic arterial embolism; B96.5 Pseudomonas (aeruginosa) (mallei) (pseudomallei) as the cause of diseases classified elsewhere; J44.9 Chronic obstructive pulmonary disease, unspecified; I10 Essential (primary) hypertension; E87.6 Hypokalemia; Z87.891 Personal history of nicotine dependence; E83.42 Hypomagnesemia
CPT/HCPCS: OP; A4216; A4314; C1751; G0378; J0696; J1644; J1956; J2185; J2543; J2704; J2920; J3010; J3370; J3475; J3480; J7030; J7040; J7050; J7060; Q9967

== ENCOUNTER 2018-05-31 09:00 | Outpatient (RCR) | payer MEDICARE, OTHER, MEDICAID ==
--- NOTE | 2018-05-03 08:55 | NUR ---
here for PICC cares. With sterile technique right upper arm PICC dressing change done with insertion site cleansed with ChloraPrep 1, skin prep, StatLock, and Tegaderm applied. No signs or symptoms of IV complications noted. No concerns voiced. Patient to return next Thursday for cares. Patient voiced understanding of instructions.
[2018-05-03 09:41] VITALS: BP 150/84; PULSE 109; TEMP 98
[2018-05-03 10:03] LABS: HEMOGLOBIN 11.5 g/dl (13.5-18.0); MEAN CELL VOLUME 99 fl (80.0-100.0); MEAN CORPUSCULAR HEMOGLOBIN 33 pg (27.0-31.0); MEAN CORPUSCULAR HGB CONC 33 g/dl (33.0-37.0); MEAN PLATELET VOLUME 9.5 fl (7.4-10.4); PLATELET COUNT 347 K/mm3 (130-400); REDCELL DISTRIBUTION WIDTH-CV 16.6 % (11.5-14.5)
[2018-05-03 10:04] LABS: HEMATOCRIT 34.7 % (42.0-52.0)
[2018-05-03 10:13] LABS: ALBUMIN 3.9 gm/dL (3.5-5.0); BILIRUBIN,TOTAL 0.3 mg/dL (0.0-1.0); CALCIUM 9.3 mg/dL (8.4-10.2); CREATININE, serum 1.19 mg/dL (0.66-1.25)
[2018-05-03 10:29] LABS: BAND 7 % (0-10); LYMPHOCYTE 8 % (20.0-51.0); NEUTROPHILS 73 % (42.0-75.2)
[2018-05-03 10:30] LABS: PLATELET ESTIMATE NORMAL (NORMAL)
[2018-05-03 10:31] LABS: ANISOCYTOSIS 1+
--- NOTE | 2018-05-10 10:15 | NUR ---
PICC intact right upper arm with sterile dressing change done with insertion site cleansed with chloraprep x 1, skin prep, stat lock, and tegaderm applied. no signs or symptoms of IV complications noted. no concerns voiced. to contiue with cares in EU. voiced understanding of instructions.
[2018-05-10 10:23] VITALS: BP 143/100; PULSE 113; TEMP 98.5
[2018-05-10 10:24] LABS: HEMATOCRIT 37.7 % (42.0-52.0); HEMOGLOBIN 12.5 g/dl (13.5-18.0); MEAN CELL VOLUME 100 fl (80.0-100.0); MEAN CORPUSCULAR HEMOGLOBIN 33 pg (27.0-31.0); MEAN CORPUSCULAR HGB CONC 33 g/dl (33.0-37.0); MEAN PLATELET VOLUME 9.7 fl (7.4-10.4); PLATELET COUNT 323 K/mm3 (130-400); RED BLOOD COUNT 3.77 M/mm3 (4.20-5.60)
[2018-05-10 10:41] LABS: BAND 2 % (0-10); BASOPHIL 1 % (0-2); EOSINOPHIL 1 % (0-4); LYMPHOCYTE 16 % (20.0-51.0); NEUTROPHILS 69 % (42.0-75.2); PLATELET ESTIMATE NORMAL (NORMAL)
[2018-05-17 09:07] VITALS: BP 139/93; PULSE 102; TEMP 98.3
[2018-05-17 09:09] LABS: HEMATOCRIT 38.6 % (42.0-52.0); HEMOGLOBIN 12.9 g/dl (13.5-18.0); MEAN CELL VOLUME 100 fl (80.0-100.0); MEAN CORPUSCULAR HEMOGLOBIN 33 pg (27.0-31.0); MEAN CORPUSCULAR HGB CONC 33 g/dl (33.0-37.0); MEAN PLATELET VOLUME 9.9 fl (7.4-10.4); PLATELET COUNT 268 K/mm3 (130-400); RED BLOOD COUNT 3.88 M/mm3 (4.20-5.60); REDCELL DISTRIBUTION WIDTH-CV 15.1 % (11.5-14.5)
--- NOTE | 2018-05-17 09:10 | NUR ---
here for cares in the express unit. PICC intact right upper arm. With sterile technique right upper arm PICC dressing change done with insertion site cleansed with ChloraPrep 1, skin prep, StatLock, and Tegaderm applied. No signs or symptoms of IV complications noted. No concerns voiced. Arm wrapped with Wily to protect catheter. Patient to return next week for cares. Voiced understanding of instructions.
[2018-05-17 09:17] LABS: ALBUMIN 4.1 gm/dL (3.5-5.0); BILIRUBIN,TOTAL 0.6 mg/dL (0.0-1.0); CALCIUM 9.5 mg/dL (8.4-10.2); CREATININE, serum 1.26 mg/dL (0.66-1.25); POTASSIUM 3.1 mmol/L (3.4-5.0); TOTAL PROTEIN 7.3 gm/dL (6.4-8.2)
[2018-05-17 10:23] LABS: BAND 3 % (0-10); EOSINOPHIL 1 % (0-4); LYMPHOCYTE 9 % (20.0-51.0); NEUTROPHILS 71 % (42.0-75.2)
[2018-05-17 10:24] LABS: PLATELET ESTIMATE NORMAL (NORMAL); STOMATOCYTE 1+
--- NOTE | 2018-05-24 09:00 | NUR ---
PICC intact right upper arm. With sterile technique right upper arm PICC dressing change done with insertion site cleansed with ChloraPrep 1, skin prep, StatLock, and Tegaderm applied. No signs or symptoms of IV complications noted. No concerns voiced. Arm wrapped with Wily to protect catheter. Patient to return next week for cares. Voiced understanding of instructions.
[2018-05-24 09:15] VITALS: BP 134/97; PULSE 115; TEMP 98.5
[2018-05-24 09:20] LABS: HEMATOCRIT 37.5 % (42.0-52.0); HEMOGLOBIN 12.3 g/dl (13.5-18.0); MEAN CELL VOLUME 100 fl (80.0-100.0); MEAN CORPUSCULAR HEMOGLOBIN 33 pg (27.0-31.0); MEAN CORPUSCULAR HGB CONC 33 g/dl (33.0-37.0); MEAN PLATELET VOLUME 9.9 fl (7.4-10.4); PLATELET COUNT 312 K/mm3 (130-400); RED BLOOD COUNT 3.74 M/mm3 (4.20-5.60); REDCELL DISTRIBUTION WIDTH-CV 14.6 % (11.5-14.5)
[2018-05-24 10:03] LABS: BAND 3 % (0-10); BASOPHIL 1 % (0-2); LYMPHOCYTE 31 % (20.0-51.0); METAMYELOCYTE 1 % (0-0); NEUTROPHILS 52 % (42.0-75.2)
[2018-05-24 10:04] LABS: PLATELET ESTIMATE NORMAL (NORMAL)
[~2018-05-31] VITALS: Ht 167.6 cm; Wt 89.6 kg
[~2018-05-31 09:00] MED LIST changes: +00186-0370-20 IH; +SPIRIVA RE2.5 MCG/Ac IH
== END 2018-05-31 09:39 | disposition home or self-care (01) ==
LOC: EUO 09:00
PROVIDERS: Internal Medicine Medical Oncology
DX: C34.01 Malignant neoplasm of right main bronchus (principal); Z45.2 Encounter for adjustment and management of vascular access device; Z95.9 Presence of cardiac and vascular implant and graft, unspecified; Z48.00 Encounter for change or removal of nonsurgical wound dressing

== ENCOUNTER → 2018-07-01 | Outpatient (CLI) | payer MEDICARE, OTHER, MEDICAID | LOC: COL.LAB 12:59 | DX: Z01.89 Encounter for other specified special examinations (principal) ==

== ENCOUNTER → 2018-07-07 | Outpatient (CLI) | payer MEDICARE, OTHER, MEDICAID | LOC: MHCPAIN 12:27 | DX: G89.29 Other chronic pain (principal); M54.12 Radiculopathy, cervical region; M47.812 Spondylosis without myelopathy or radiculopathy, cervical region | CPT/HCPCS: G0463 ==

== ENCOUNTER 2018-07-22 08:00 | Outpatient (CLI) | payer MEDICARE, OTHER ==
[2018-07-23 17:27] LABS: CALCIUM 9.5 mg/dL (8.4-10.2); CREATININE, serum 1.51 mg/dL (0.66-1.25); POTASSIUM 3.3 mmol/L (3.4-5.0)
[2018-07-23 20:15] LABS: INR 1.2 (0.8-3.0)
[2018-07-23 22:06] LABS: HEMATOCRIT 35.5 % (42.0-52.0); HEMOGLOBIN 11.6 g/dl (13.5-18.0); MEAN CELL VOLUME 90 fl (80.0-100.0); MEAN CORPUSCULAR HEMOGLOBIN 29 pg (27.0-31.0); MEAN CORPUSCULAR HGB CONC 33 g/dl (33.0-37.0); PLATELET COUNT 203 K/mm3 (130-400); RED BLOOD COUNT 3.96 M/mm3 (4.20-5.60); REDCELL DISTRIBUTION WIDTH-CV 14.9 % (11.5-14.5)
[2018-07-24] MEDS ORDERED: NORCO 325 MG-51 TAB PO (06:29)
[2018-07-24] MEDS ORDERED: PRILOSEC 20MG20 MG PO (06:29)
[2018-07-24] MEDS ORDERED: DEMADEX5 MG PO (06:54)
[2018-07-24] MEDS ORDERED: LOZOL 2.5M2.5 MG/TAB PO (06:55)
[2018-07-24] MEDS ORDERED: NORVASC 10MG10 MG PO (06:55)
[2018-07-24] MEDS ORDERED: PRINIVIL5 MG PO (06:56)
[2018-07-24] MEDS ORDERED: PROBIOTIC FORMU1 CAP PO (06:57)
[2018-07-24] MEDS ORDERED: FOLIC ACID 11 MG/TA1 PO (06:57)
[2018-07-24] MEDS ORDERED: COZAAR100 MG PO (06:58)
[2018-07-24] MEDS ORDERED: ALDACTONE 25MG25 M1 PO (06:59)
[2018-07-24] MEDS ORDERED: NATURE'S BLEND100 M2 PO (06:59)
[2018-07-24] MEDS ORDERED: LEVAQUIN 750MG750 M1 PO (07:01)
[2018-07-24] MEDS ORDERED: AMOXICILLIN 8751 TAB PO (09:32)
== END 2018-07-22 10:30 | disposition home or self-care (01) ==
LOC: COL.RAD 08:00
PROVIDERS: Internal Medicine Cardiovascular Disease
DX: I33.0 Acute and subacute infective endocarditis (principal)
CPT/HCPCS: J2704

== ENCOUNTER → 2018-07-24 | Emergency (ER) | payer MEDICARE, OTHER ==
[~2018-07-24] VITALS: Ht 167.6 cm; Wt 81.8 kg
[~2018-07-24] MED LIST changes: +ALDACTONE 25MG25 M1 PO; +LEVAQUIN 750MG750 M1 PO; +NATURE'S BLEND100 M2 PO; +PRILOSEC 20MG20 MG PO; +PRINIVIL5 MG PO; +PROBIOTIC FORMU1 CAP PO
[2018-07-24 06:17] VITALS: TEMP 97
[2018-07-24 06:53] LABS: GRAN # 3.8 (1.4-6.5); GRAN % 69.9 % (42.2-75.2); LYMPH # 0.9 (1.2-3.4); MEAN CELL VOLUME 87 fl (80.0-100.0); MEAN CORPUSCULAR HEMOGLOBIN 29 pg (27.0-31.0); MEAN CORPUSCULAR HGB CONC 34 g/dl (33.0-37.0); MONO # 0.7 (0.1-0.6); MONO % 12.7 % (1.7-9.3); PLATELET COUNT 220 K/mm3 (130-400); RED BLOOD COUNT 4.09 M/mm3 (4.20-5.60); REDCELL DISTRIBUTION WIDTH-CV 14.6 % (11.5-14.5)
[2018-07-24 07:04] LABS: HEMATOCRIT 35.7 % (42.0-52.0)
[2018-07-24 07:06] LABS: ALANINE AMINOTRANSFERASE 15 U/L (21-72); ALKALINE PHOSPHATASE 64 U/L (50-136); ANION GAP 11 mmol/L (7-16); AST,SGOT 13 U/L (15-37); BILIRUBIN,TOTAL 0.5 mg/dL (0.0-1.0); BLOOD UREA NITROGEN 12 mg/dL (9-20); CALCIUM 9.7 mg/dL (8.4-10.2); CARBON DIOXIDE 29 mmol/L (22-30); CHLORIDE 99 mmol/L (98-107); GLUCOSE 120 mg/dL (74-106); LIPASE 56 U/L (23-300); SODIUM 139 mmol/L (137-145); TOTAL PROTEIN 7.1 gm/dL (6.4-8.2)
[2018-07-24 07:18] LABS: TROPONIN-I < 0.012 ng/mL (0.000-0.035)
[2018-07-24 09:45] VITALS: BP 121/94; PULSE 98
== END ==
LOC: COL.ER 06:08
PROVIDERS: Emergency Medicine
DX: J98.19 Other pulmonary collapse (principal); C34.90 Malignant neoplasm of unspecified part of unspecified bronchus or lung; I10 Essential (primary) hypertension; J44.9 Chronic obstructive pulmonary disease, unspecified
CPT/HCPCS: J1170; J7030; Q9967

== ENCOUNTER → 2018-07-30 | Outpatient (CLI) | payer MEDICARE, OTHER | LOC: ZCOL.LAB 17:54 → COL.LAB 17:54 | DX: Z01.89 Encounter for other specified special examinations (principal) ==

== ENCOUNTER 2018-08-23 09:00 | Outpatient (RCR) | payer MEDICARE, OTHER ==
[2018-08-09 09:40] VITALS: BP 156/95; PULSE 97
[2018-08-16 09:17] VITALS: BP 158/107; PULSE 115; TEMP 98.1
[~2018-08-23] VITALS: Ht 167.6 cm; Wt 90.0 kg
--- NOTE | 2018-08-23 10:07 | NUR ---
Patient did not show for today's apt.This nurse called and spoke with pt.Per pt [facility] will start doing his dressing canges to central line.Per pt report,they are scheduled to do today with home health.This nurse notified Nellie Nichols at Dr Bonilla's office.
== END 2018-08-24 12:45 | disposition home or self-care (01) ==
LOC: EUO 09:00
DX: C34.01 Malignant neoplasm of right main bronchus (principal)

== ENCOUNTER → 2018-09-01 | Outpatient (CLI) | payer MEDICARE, OTHER | LOC: MHCPAIN 12:08 | DX: G89.29 Other chronic pain (principal); M54.12 Radiculopathy, cervical region; M47.812 Spondylosis without myelopathy or radiculopathy, cervical region | CPT/HCPCS: G0463 ==

== ENCOUNTER 2018-11-07 17:07 | Inpatient (IN) | payer MEDICARE, OTHER, MEDICAID ==
[~2018-11-07] VITALS: Ht 167.6 cm; Wt 85.1 kg
[2018-11-07 17:50] LABS: ARTERIAL BLD GAS O2 SATURATION 90.5 % (92-100); ARTERIAL BLD GAS TCO2 CT 24.6; ARTERIAL BLOOD GAS BASE EXCESS 1.2 (-2-2); ARTERIAL BLOOD GAS HCO3 23.7 meq/L (22-26); ARTERIAL BLOOD GAS PCO2 31.7 mmHg (35-45); ARTERIAL BLOOD GAS PO2 58.3 mmHg (80-100); ARTERIAL BLOOD GAS pH 7.49 (7.35-7.45)
[2018-11-07] MEDS ORDERED: THEO-DUR 3300 MG/TAB PO (17:50)
[2018-11-07 17:52] LABS: BASO % 0.1 % (0.0-2.0); GRAN % 89.9 % (42.2-75.2); HEMATOCRIT 41.4 % (42.0-52.0); HEMOGLOBIN 13.8 g/dl (13.5-18.0); LYMPH # 0.4 (1.2-3.4); LYMPH % 3.8 % (20.0-51.0); MEAN CELL VOLUME 92 fl (80.0-100.0); MEAN CORPUSCULAR HEMOGLOBIN 31 pg (27.0-31.0); MEAN CORPUSCULAR HGB CONC 33 g/dl (33.0-37.0); MEAN PLATELET VOLUME 10.2 fl (7.4-10.4); MONO # 0.4 (0.1-0.6); MONO % 3.5 % (1.7-9.3); PLATELET COUNT 210 K/mm3 (130-400); RED BLOOD COUNT 4.52 M/mm3 (4.20-5.60); REDCELL DISTRIBUTION WIDTH-CV 16.8 % (11.5-14.5)
[2018-11-07 17:57] LABS: INR 0.9 (0.8-3.0); PROTHROMBIN TIME 10.1 SECONDS (9.7-12.8)
[2018-11-07 18:05] LABS: ALANINE AMINOTRANSFERASE 9 U/L (21-72); ALBUMIN 3.9 gm/dL (3.5-5.0); ALKALINE PHOSPHATASE 87 U/L (50-136); ANION GAP 11 mmol/L (7-16); AST,SGOT 20 U/L (15-37); BILIRUBIN,TOTAL 0.4 mg/dL (0.0-1.0); BLOOD UREA NITROGEN 25 mg/dL (9-20); C-REACTIVE PROTEIN 2.8 mg/dL (0.0-0.9); CALCIUM 9.1 mg/dL (8.4-10.2); CARBON DIOXIDE 26 mmol/L (22-30); CHLORIDE 99 mmol/L (98-107); GLUCOSE 172 mg/dL (74-106); POTASSIUM 3.9 mmol/L (3.4-5.0); SODIUM 135 mmol/L (137-145); TOTAL PROTEIN 6.6 gm/dL (6.4-8.2)
[2018-11-07] MEDS ORDERED: PERFOROMIS20 MCG/2 M IH (18:11)
[2018-11-07] MEDS ORDERED: PRILOSEC 20MG20 MG PO (18:12)
[2018-11-07] MEDS ORDERED: DEMADEX5 MG PO (18:13)
[2018-11-07] MEDS ORDERED: ALDACTONE 25MG25 M1 PO (18:15)
[2018-11-07] MEDS ORDERED: PULMICORT0.5 MG/2 M IH (18:16)
[2018-11-07] MEDS ORDERED: YUPELRI175 MCG/3 IH (18:17)
[2018-11-07 18:18] LABS: TROPONIN-I < 0.012 ng/mL (0.000-0.035)
--- NOTE | 2018-11-07 19:40 | NUR ---
Pt arrived to room 353, transferred by ER staff. Pt awake, a&o, cooperative c cares. Pt continued c/o generalized chest pain rated "8/10" especially when taking deep breaths, R>L, pain med recently admin in ED. Pt denies any other c/o. Oriented to room, unit policies et current POC. Questions invited et answered et pt verbalizes understanding. Pt denies further needs at this time. Call light in reach, will continue c admit process.
[2018-11-07 20:21] VITALS: BP 139/94; PULSE 111; TEMP 99
[2018-11-07 23:32] VITALS: BP 146/84; PULSE 102; TEMP 98.2
[2018-11-08 03:51] VITALS: BP 153/87; PULSE 96; TEMP 97.8
[2018-11-08 05:47] LABS: HEMATOCRIT 38.5 % (42.0-52.0); HEMOGLOBIN 12.7 g/dl (13.5-18.0); MEAN CELL VOLUME 93 fl (80.0-100.0); MEAN CORPUSCULAR HEMOGLOBIN 31 pg (27.0-31.0); MEAN CORPUSCULAR HGB CONC 33 g/dl (33.0-37.0); MEAN PLATELET VOLUME 10.6 fl (7.4-10.4); PLATELET COUNT 186 K/mm3 (130-400); RED BLOOD COUNT 4.15 M/mm3 (4.20-5.60); REDCELL DISTRIBUTION WIDTH-CV 16.9 % (11.5-14.5)
[2018-11-08 07:33] VITALS: BP 150/95; PULSE 87; TEMP 97.4
[2018-11-08 07:42] LABS: CALCIUM 9.1 mg/dL (8.4-10.2); CREATININE, serum 1.08 (0.66-1.25); POTASSIUM 3.8 mmol/L (3.4-5.0)
[2018-11-08 07:52] LABS: LYMPHOCYTE 5 % (20.0-51.0); NEUTROPHILS 95 % (42.0-75.2)
[2018-11-08 07:54] LABS: PLATELET ESTIMATE NORMAL (NORMAL); TOXIC GRANULATION PRESENT
--- NOTE | 2018-11-08 09:20 | NUR ---
patient was admitted to the hospital over the weekend. Patient has a PICC left upper arm. With sterile technique left upper arm PICC dressing change done with insertion site cleansed with ChloraPrep 1, chlorhexidine impregnated disc applied, skin prep, StatLock, and Tegaderm applied. No signs or symptoms of IV complications noted. No concerns voiced. Arm wrapped with Wily to protect catheter.
--- NOTE | 2018-11-08 11:55 | NUR ---
Initial visit; Patient thanked Chinese Medicine Practitioner for looking in on him and letting him know of the availability of spiritual care at [facility]. Chinese Medicine Practitioner mentioned that she is aware of the good support system he has through the 'alevism home' he attends.
--- NOTE | 2018-11-08 12:43 | NUR ---
Patient is sitting up in bed watching tv and using iPad. Denies having any pain. Has been laughing about his situation. Does get short of breath on exertion. Was noted to have audible wheezing earlier in the morning, has improved since. Observed ambulating, gait is steady. Personal items and call light are within reach.
[2018-11-08 13:11] VITALS: BP 152/92; PULSE 102; TEMP 97.7
--- NOTE | 2018-11-08 15:11 | NUR ---
SW met with patient to discuss discharge planning. Patient lives independently at home with his life partner, Kady, and plans to return there upon discharge. Patient's PCP is Dr Jeanna Bethea and he obtains prescriptions from [facility]. Patient's O2 is provided by [facility]. Patient does not use any home health services. Patient does have a DPOA. SW does not anticipate discharge needs.
[2018-11-08 16:44] VITALS: BP 118/82; PULSE 101; TEMP 98.6
--- NOTE | 2018-11-08 19:36 | NUR ---
Patient is resting in bed watching TV and playing games on his ipad. Call light and personal items are within reach.
--- NOTE | 2018-11-08 19:47 | NUR ---
Shift assessment complete. Pt sitting on bench et playing games on his tablet. Pt awake, a&o, cooperative c cares. Reprts continued chronic chest pain that is "way better than when I got here", req PRN pain med at HS. PT denies increased SOB or any other c/o. PICC noted to L upper arm, patent c good blood return. Tele in place. O2 per NC. Pt denies further needs. Call light in reach, will monitor.
--- NOTE | 2018-11-08 20:11 | NUR ---
RINSE OUT MOUTH..
[2018-11-08 21:08] VITALS: BP 148/95; PULSE 113; TEMP 98.1
[2018-11-08 23:32] VITALS: BP 136/90; PULSE 101; TEMP 98
[2018-11-09 03:07] VITALS: BP 121/80; PULSE 102; TEMP 97.9
[2018-11-09 03:20] LABS: PH 7 (5-8); SQUAMOUS EPITHELIAL None Seen /hpf; URINE APPEARANCE Clear; URINE BACTERIA None Seen /hpf; URINE BILIRUBIN Negative (NEGATIVE); URINE BLOOD Negative (NEGATIVE); URINE COLOR Straw; URINE GLUCOSE 2+ (NEGATIVE); URINE KETONE Negative (NEGATIVE); URINE LEUKOCYTE ESTERASE Negative (NEGATIVE); URINE NITRATE Negative (NEGATIVE); URINE PROTEIN(semi-quant) Negative (NEGATIVE); URINE RBC None Seen /hpf; URINE UROBILINOGEN Negative (NEGATIVE)
[2018-11-09 03:22] LABS: COLLECTION METHOD CLEAN CATCH
[2018-11-09 05:55] LABS: HEMOGLOBIN 12.2 g/dl (13.5-18.0); MEAN CELL VOLUME 92 fl (80.0-100.0); MEAN CORPUSCULAR HEMOGLOBIN 31 pg (27.0-31.0); MEAN CORPUSCULAR HGB CONC 34 g/dl (33.0-37.0); PLATELET COUNT 178 K/mm3 (130-400); RED BLOOD COUNT 3.95 M/mm3 (4.20-5.60); REDCELL DISTRIBUTION WIDTH-CV 17.1 % (11.5-14.5)
[2018-11-09 05:59] LABS: HEMATOCRIT 36.2 % (42.0-52.0)
[2018-11-09 06:08] LABS: CALCIUM 9.3 mg/dL (8.4-10.2); CREATININE, serum 1.19 (0.66-1.25); POTASSIUM 3.3 mmol/L (3.4-5.0)
[2018-11-09 06:22] LABS: ANISOCYTOSIS 1+; BAND 10 % (0-10); LYMPHOCYTE 2 % (20.0-51.0); NEUTROPHILS 81 % (42.0-75.2); PLATELET ESTIMATE NORMAL (NORMAL)
[2018-11-09 06:23] LABS: OVALOCYTES 1+
--- NOTE | 2018-11-09 07:25 | NUR ---
Patient is sitting up in bed eating breakfast. Reports he has little pain this morning after having his night pain pill. Is not wearing oxygen and states he feels fine without. Respirations are even and nonlabored. Personal items and call light is within reach.
[2018-11-09 09:00] VITALS: BP 135/89; PULSE 99; TEMP 98.4
[2018-11-09 13:25] VITALS: BP 120/91; PULSE 106; TEMP 98.4
--- NOTE | 2018-11-09 14:20 | NUR ---
Patient reported to nursing that his PICC insertion site is painful to touch. Wily bandage was removed and area is clean, dry and intact. No warmth or swelling noted. Did measure at 35 cm. Fluids stopped and line was flushed and received good blood return. Initiated fluids and called PICC nurse who said she will evaluate.
--- NOTE | 2018-11-09 15:15 | NUR ---
pain and/or discomfort at PICC insertion site. Left upper arm PICC intact with patient reports discomfort at site with touch. No discomfort along vein ports shoulder. With sterile technique left upper arm PICC dressing change tablets insertion site cleansed with ChloraPrep 1, chlorhexidine impregnated disc applied, StatLock, skin prep, and Tegaderm applied. Patient reports discomfort feels better now that insertion site. Questionable will just kinking of StatLock. We'll continue to monitor. Arm wrapped with Wily to protect catheter.
[2018-11-09 16:28] VITALS: BP 124/86; PULSE 111; TEMP 98.4
--- NOTE | 2018-11-09 17:57 | NUR ---
Patient is sitting up in bed visiting with and eating supper. Is wearing oxygen. States he is not feeling short of breath. Denies pain. Call light and personal items are within reach.
--- NOTE | 2018-11-09 19:15 | NUR ---
Report recieved. in pt room at this time. New orders for transfer to ICU. Pt denies pain, SOB or any other c/o or needs at this time. Call light in reach. Will continue c transfer.
[2018-11-09 20:02] VITALS: BP 130/76; PULSE 113; TEMP 98.3
--- NOTE | 2018-11-09 20:10 | NUR ---
Pt report received from Iona FIGUEROA on medical floor
--- NOTE | 2018-11-09 20:22 | NUR ---
Report given et pt to ICU at this time.
--- NOTE | 2018-11-09 20:25 | NUR ---
Pt assisted to ICU04 via wheelchair with personal belongings accompanied by 1 family member and warehouse record clerk. Pt was assisted into bed at this time. Pt denies any current complaints including SOA, dizziness, or pain. Pt requested to keep all personal belongings at bedside. Discussed wearing the Bipap for the night and pt is agreeable at this time.
[2018-11-09 20:48] LABS: ARTERIAL BLD GAS O2 SATURATION 96.1 % (92-100); ARTERIAL BLOOD GAS BASE EXCESS 1.5 (-2-2); ARTERIAL BLOOD GAS PCO2 31.9 mmHg (35-45); ARTERIAL BLOOD GAS PO2 84.2 mmHg (80-100); ARTERIAL BLOOD GAS pH 7.49 (7.35-7.45)
[2018-11-10] VITALS (7 sets, daily range): BP systolic 93–161; BP diastolic 85–111; PULSE 101–117; TEMP 97.7–99.2
[2018-11-10 05:38] LABS: HEMOGLOBIN 11.9 g/dl (13.5-18.0); MEAN CELL VOLUME 94 fl (80.0-100.0); MEAN CORPUSCULAR HEMOGLOBIN 30 pg (27.0-31.0); MEAN CORPUSCULAR HGB CONC 32 g/dl (33.0-37.0); MEAN PLATELET VOLUME 10.5 fl (7.4-10.4); PLATELET COUNT 185 K/mm3 (130-400); RED BLOOD COUNT 3.91 M/mm3 (4.20-5.60); REDCELL DISTRIBUTION WIDTH-CV 17.5 % (11.5-14.5)
[2018-11-10 05:42] LABS: HEMATOCRIT 36.8 % (42.0-52.0)
[2018-11-10 05:46] LABS: ALBUMIN 3.3 gm/dL (3.5-5.0); BILIRUBIN UNCONJUGATED 0.1 mg/dL (0.0-1.1); BILIRUBIN,TOTAL 0.2 mg/dL (0.0-1.0); CALCIUM 9.1 mg/dL (8.4-10.2); CREATININE, serum 1.06 (0.66-1.25); TOTAL PROTEIN 5.9 gm/dL (6.4-8.2)
[2018-11-10 05:48] LABS: INR 0.8 (0.8-3.0); PROTHROMBIN TIME 9.5 SECONDS (9.7-12.8)
[2018-11-10 06:17] LABS: ANISOCYTOSIS 1+; BAND 5 % (0-10); LYMPHOCYTE 2 % (20.0-51.0); NEUTROPHILS 88 % (42.0-75.2); PLATELET ESTIMATE NORMAL (NORMAL)
[2018-11-10 06:18] LABS: OVALOCYTES 1+
--- NOTE | 2018-11-10 07:10 | NUR ---
Bedside report received from Rossi FIGUEROA. Pt resting in bed. Requested to take off Bipap for the morning. Following report pt spouse entered the room. Pt appears to be in good spirits reporting "Im ready to go home".
--- NOTE | 2018-11-10 07:10 | NUR ---
Bedside report received from CAROLINA Feliciano. Patient removes Bipap at this time. He is placed on 2L O2 (home dose.) Plan of care reviewed with Jodie and the patient. Will continue to monitor
--- NOTE | 2018-11-10 10:18 | NUR ---
Follow-up visit; Patient thanked Quality Management Nurse for being aware of his move from Medical Unit to ICU. Quality Management Nurse continues to wish Erasto well and offered God's blessings.
[2018-11-10] MEDS ORDERED: THEO-DUR 3300 MG/TAB PO (11:40)
--- NOTE | 2018-11-10 12:14 | NUR ---
REPORT GIVEN TO CAROLINA MARISCAL. PATIENT WILL GO TO ROOM 306
--- NOTE | 2018-11-10 14:28 | NUR ---
PT ADMITTED TO FLOOR AT THIS TIME. NO CONSERNS OR ISSUES VOICED AT THIS TIME. IV FLUIDS INFUSING AT THIS TIME, ORDERS TO DC, WILL FINISH REST OF BAG, ONLY 200CC LEFT. NO C/O PAIN AT THIS TIME. PT ORDERING LUNCH
--- NOTE | 2018-11-10 18:22 | NUR ---
PT HAD ELEVATED B/P THIS AFTERNOON AND RECIEVED A DOSE OF PO HYDRALAZILNE THAT WAS A PRN ORDER. NO OTHER ISSUES OR CONSERNS VOICED. HAS BEEN PLEASENT AND COOPERATIVE WITH CARES. FAMLIY AT BEDSIDE.
--- NOTE | 2018-11-10 21:39 | NUR ---
Resting in bed. Assessment complete. Cooper sounds normal, tachycardic. Lungs clear. Bowels active x4. Pulses strong throughout. No edema noted. PICC to left upper flushed without complications. Denies pain. Denies needs at this time. Call light in reach.
[2018-11-11 00:25] VITALS: BP 141/101; PULSE 109; TEMP 98.4
--- NOTE | 2018-11-11 01:00 | NUR ---
Resting in bed. Denies needs. Call light in reach.
[2018-11-11 04:27] VITALS: BP 145/89; PULSE 101; TEMP 97.7
--- NOTE | 2018-11-11 05:33 | NUR ---
Patient resting in bed this AM. Tachycardia with ambulation 100s to 110s, resolved with resting. Otherwise uneventful night. Denies needs this AM. Call light in reach.
--- NOTE | 2018-11-11 06:35 | NUR ---
Report given to CAROLINA Worley
[2018-11-11 07:44] VITALS: BP 148/77; PULSE 109; TEMP 98.1
[2018-11-11 08:57] LABS: HEMATOCRIT 39.9 % (42.0-52.0); MEAN CELL VOLUME 96 fl (80.0-100.0); MEAN CORPUSCULAR HEMOGLOBIN 31 pg (27.0-31.0); MEAN CORPUSCULAR HGB CONC 33 g/dl (33.0-37.0); MEAN PLATELET VOLUME 10.1 fl (7.4-10.4); PLATELET COUNT 206 K/mm3 (130-400); RED BLOOD COUNT 4.17 M/mm3 (4.20-5.60); REDCELL DISTRIBUTION WIDTH-CV 17.6 % (11.5-14.5)
[2018-11-11 09:12] LABS: ALBUMIN 3.7 gm/dL (3.5-5.0); BILIRUBIN,TOTAL 0.4 mg/dL (0.0-1.0); CALCIUM 9.8 mg/dL (8.4-10.2); CREATININE, serum 1.17 (0.66-1.25); TOTAL PROTEIN 6.4 gm/dL (6.4-8.2)
--- NOTE | 2018-11-11 10:36 | NUR ---
Follow-up; Calculation Reviewer spoke briefly with patient offering light conversation which left patient laughing.
--- NOTE | 2018-11-11 10:43 | NUR ---
GAIL attended clinical rounds. Patient will discharge home today. GAIL presented IM to patient. He signed but did request a copy.
[2018-11-11] MEDS ORDERED: PREDNISONE10 MG PO (11:02)
--- NOTE | 2018-11-11 12:51 | NUR ---
PT DISCHARGE EDUCATION PROVIDED. SIGNATURES ON PAPERWORK OBTAINED. NO QUESTIONS OR CONSERNS VOICED. PT AT [facility]. STATED SHE WAS GOING TO PULL THE CAR AROUND TO THE FRONT DOOR. PT ESCORTED TO ELEVATOR BY THIS NURSE, PT STATED HE WAS ABLE TO MAKE IT TO THE FRONT DOOR FROM THERE.
== END 2018-11-11 12:00 | disposition home or self-care (01) | DRG 191 ==
LOC: COL.ER 17:07 → MEDICAL 18:55 → ICU 11-09 20:25 → MEDICAL 11-10 12:28
PROVIDERS: Emergency Medicine; Family Medicine; Nurse Practitioner; Physician Assistant; ADMIT Internal Medicine
DX: J44.1 Chronic obstructive pulmonary disease with (acute) exacerbation (principal); I42.0 Dilated cardiomyopathy; N17.9 Acute kidney failure, unspecified; C34.91 Malignant neoplasm of unspecified part of right bronchus or lung; E87.2 Acidosis; J98.11 Atelectasis; I10 Essential (primary) hypertension; Z99.81 Dependence on supplemental oxygen; Z88.5 Allergy status to narcotic agent; Z88.8 Allergy status to other drugs, medicaments and biological substances; Z87.891 Personal history of nicotine dependence; K21.9 Gastro-esophageal reflux disease without esophagitis; E87.6 Hypokalemia; F10.11 Alcohol abuse, in remission; E66.9 Obesity, unspecified; Z68.30 Body mass index [BMI] 30.0-30.9, adult; G47.33 Obstructive sleep apnea (adult) (pediatric); R07.89 Other chest pain
CPT/HCPCS: 99222-AI; 99232-AI; 99233-AI; 99239; J1644; J2543; J2930; J3370; J3480; J7030; J7050; J7512

== ENCOUNTER → 2018-11-16 | Outpatient (CLI) | payer MEDICARE, OTHER, MEDICAID ==
[~2018-11-16] MED LIST changes: +PREDNISONE10 MG PO; +PULMICORT0.5 MG/2 M IH; +THEO-DUR 3300 MG/TAB PO; +YUPELRI175 MCG/3 IH
== END ==
LOC: MHCPAIN 12:17
DX: G89.29 Other chronic pain (principal); M54.12 Radiculopathy, cervical region; M47.812 Spondylosis without myelopathy or radiculopathy, cervical region
CPT/HCPCS: G0463

== ENCOUNTER → 2018-12-07 | Outpatient (CLI) | payer MEDICARE, OTHER | LOC: MHCPAIN 07:53 | DX: G89.29 Other chronic pain (principal); M54.12 Radiculopathy, cervical region; M47.812 Spondylosis without myelopathy or radiculopathy, cervical region | CPT/HCPCS: G0463 ==

== ENCOUNTER → 2018-12-20 | Outpatient (RCR) | payer MEDICARE, OTHER, MEDICAID ==
[2018-09-21 10:08] VITALS: BP 108/90; PULSE 117; TEMP 98.2
[2018-09-27 09:00] VITALS: BP 111/77; PULSE 98; TEMP 98.1
--- NOTE | 2018-09-27 09:00 | NUR ---
here for cares. With sterile technique left upper arm PICC dressing change done with insertion site cleansed with ChloraPrep 1, chlorhexidine impregnated disc applied, skin prep, StatLock, and Tegaderm applied. No signs or symptoms of IV complications noted. Patient voiced he has had some discomfort in his left arm and as of today this discomfort has resolved. Advised patient to apply warm moist pack as needed for discomfort. No other concerns voiced. Arm wrapped with Wily to protect catheter. Patient to return next Thursday for cares. Patient voiced understanding of instructions.
--- NOTE | 2018-10-04 08:45 | NUR ---
Here for cares. with sterile technique left upper arm PICC dressing change done with insertion site cleansed with chloraprep x 1, chlorhexidine impregnated disk, skin prep, stat lock, and tegaderm applied. no signs or symptoms of IV complications noted. no concerns voiced. re-wrapped with miguel to protect catheter. to return next week for cares. voiced understanding of instructions.
[2018-10-04 09:03] VITALS: BP 114/82; PULSE 114; TEMP 98.6
[2018-10-04 12:48] LABS: HEMOGLOBIN 12.1 g/dl (13.5-18.0); MEAN CELL VOLUME 92 fl (80.0-100.0); MEAN CORPUSCULAR HEMOGLOBIN 31 pg (27.0-31.0); MEAN CORPUSCULAR HGB CONC 34 g/dl (33.0-37.0); MEAN PLATELET VOLUME 9.9 fl (7.4-10.4); PLATELET COUNT 274 K/mm3 (130-400); RED BLOOD COUNT 3.91 M/mm3 (4.20-5.60); REDCELL DISTRIBUTION WIDTH-CV 17.8 % (11.5-14.5)
[2018-10-04 12:54] LABS: ALBUMIN 3.8 gm/dL (3.5-5.0); BILIRUBIN,TOTAL 0.6 mg/dL (0.0-1.0); CALCIUM 9.7 mg/dL (8.4-10.2); CREATININE, serum 1.15 (0.66-1.25); TOTAL PROTEIN 6.8 gm/dL (6.4-8.2)
[2018-10-04 13:08] LABS: BASOPHIL 1 % (0-2); LYMPHOCYTE 14 % (20.0-51.0); NEUTROPHILS 71 % (42.0-75.2)
[2018-10-04 13:10] LABS: ANISOCYTOSIS 1+; PLATELET ESTIMATE NORMAL (NORMAL)
[2018-10-04 13:11] LABS: TOXIC GRANULATION PRESENT
--- NOTE | 2018-10-11 09:00 | NUR ---
Here for cares. PICC intact left upper arm with sterile dressing change done with insertion site cleansed with chloraprep x 1, skin prep, stat lock, chlorhexidine impregnated disk, and tegaderm applied. no signs or symptoms of IV complications noted. no concerns voiced. to return next week for cares. voiced understaning of instructions.
[2018-10-11 09:36] VITALS: BP 91/62; PULSE 70; TEMP 97.5
--- NOTE | 2018-10-19 09:00 | NUR ---
Here for cares. with sterile technique left upper arm PICC dressing change done with insertion site cleansed with chloraprep x 1, chlorhexidine impregnated disk applied, skin prep, stat lock, and tegaderm applied. no signs or symptoms of IV complications noted. no concerns voiced. to return next Thursday for cares. voiced understanding of instructions.
[2018-10-19 09:09] LABS: HEMATOCRIT 37.5 % (42.0-52.0); HEMOGLOBIN 12.6 g/dl (13.5-18.0); MEAN CELL VOLUME 92 fl (80.0-100.0); MEAN CORPUSCULAR HEMOGLOBIN 31 pg (27.0-31.0); MEAN CORPUSCULAR HGB CONC 34 g/dl (33.0-37.0); MEAN PLATELET VOLUME 9.5 fl (7.4-10.4); PLATELET COUNT 302 K/mm3 (130-400); RED BLOOD COUNT 4.09 M/mm3 (4.20-5.60); REDCELL DISTRIBUTION WIDTH-CV 16.7 % (11.5-14.5)
[2018-10-19 09:18] VITALS: BP 158/98; PULSE 90; TEMP 97.5
[2018-10-19 09:18] LABS: ALANINE AMINOTRANSFERASE < 6 U/L (21-72); ALKALINE PHOSPHATASE 85 U/L (50-136); ANION GAP 12 mmol/L (7-16); AST,SGOT 19 U/L (15-37); BILIRUBIN,TOTAL 0.4 mg/dL (0.0-1.0); BLOOD UREA NITROGEN 13 mg/dL (9-20); CARBON DIOXIDE 27 mmol/L (22-30); CHLORIDE 105 mmol/L (98-107); CREATININE, serum 1.42 (0.66-1.25); GLUCOSE 118 mg/dL (74-106); LACTATE DEHYDROGENASE 442 U/L (313-618); POTASSIUM 3.3 mmol/L (3.4-5.0); SODIUM 144 mmol/L (137-145); TOTAL PROTEIN 7.2 gm/dL (6.4-8.2)
[2018-10-19 11:38] LABS: LYMPHOCYTE 22 % (20.0-51.0); NEUTROPHILS 59 % (42.0-75.2); PLATELET ESTIMATE NORMAL (NORMAL)
--- NOTE | 2018-10-25 09:00 | NUR ---
PICC intact left upper arm. with sterile technique left upper arm PICC dressing change done with insertion site cleansed with chloraprep x 1, chlorhexidine impregnated disk applied, skin prep, stat lock, and tegaderm applied. no signs or symptoms of IV complications noted. no concerns voiced. re-wrapped with miguel to protect catheter.
[2018-10-25 09:15] VITALS: BP 149/95; PULSE 92; TEMP 98.4
--- NOTE | 2018-11-01 09:00 | NUR ---
patient here for cares. With sterile technique left upper arm PICC dressing change done with insertion site cleansed with ChloraPrep 1, chlorhexidine impregnated disc applied, skin prep, StatLock, and Tegaderm applied. No signs or symptoms of IV complications noted. No concerns voiced. Arm wrapped with Wily to protect catheter. Patient to return a report cares. Patient voiced understanding of instructions.
[2018-11-01 09:16] LABS: HEMATOCRIT 40.3 % (42.0-52.0); HEMOGLOBIN 13.7 g/dl (13.5-18.0); MEAN CELL VOLUME 90 fl (80.0-100.0); MEAN CORPUSCULAR HEMOGLOBIN 31 pg (27.0-31.0); MEAN CORPUSCULAR HGB CONC 34 g/dl (33.0-37.0); MEAN PLATELET VOLUME 10.5 fl (7.4-10.4); PLATELET COUNT 277 K/mm3 (130-400); RED BLOOD COUNT 4.46 M/mm3 (4.20-5.60); REDCELL DISTRIBUTION WIDTH-CV 16.5 % (11.5-14.5)
[2018-11-01 09:17] VITALS: BP 145/85; PULSE 108; TEMP 97.7
[2018-11-01 09:25] LABS: ALBUMIN 4.1 gm/dL (3.5-5.0); BILIRUBIN,TOTAL 0.5 mg/dL (0.0-1.0); CALCIUM 9.4 mg/dL (8.4-10.2); CREATININE, serum 1.16 (0.66-1.25)
[2018-11-01 09:48] LABS: LYMPHOCYTE 7 % (20.0-51.0); NEUTROPHILS 90 % (42.0-75.2); NUCLEATED RED BLOOD CELL 1 (0-6); PLATELET ESTIMATE NORMAL (NORMAL)
--- NOTE | 2018-11-15 09:00 | NUR ---
here for cares. With sterile technique left upper arm PICC dressing change done with insertion site cleansed with ChloraPrep 1, chlorhexidine impregnated disc applied, skin prep, StatLock, and Tegaderm applied. No signs or symptoms of IV complications noted. No concerns voiced. Patient return next week for cares. Patient voiced understanding of instructions.
[2018-11-15 09:01] VITALS: BP 118/85; PULSE 111; TEMP 98.5
[2018-11-22 09:06] VITALS: BP 139/103; PULSE 108; TEMP 98.7
--- NOTE | 2018-11-22 09:10 | NUR ---
patient here for cares. With sterile technique left upper arm PICC dressing change done with insertion site cleansed with ChloraPrep 1, chlorhexidine impregnated disc applied, skin prep, StatLock, and Tegaderm applied. No signs or symptoms of IV complications noted. No concerns voiced. Patient to return next week for cares. Patient voiced understanding of instructions.
[2018-11-22 09:17] LABS: ALBUMIN 4.1 gm/dL (3.5-5.0); BILIRUBIN,TOTAL 0.6 mg/dL (0.0-1.0); CALCIUM 9.6 mg/dL (8.4-10.2); CREATININE, serum 1.26 (0.66-1.25); POTASSIUM 3.6 mmol/L (3.4-5.0); TOTAL PROTEIN 7.3 gm/dL (6.4-8.2)
[2018-11-22 10:00] LABS: LYMPHOCYTE 17 % (20.0-51.0); NEUTROPHILS 76 % (42.0-75.2); PLATELET ESTIMATE DECREASED (NORMAL)
[2018-11-22 10:07] LABS: HEMATOCRIT 39.2 % (42.0-52.0); MEAN CELL VOLUME 93 fl (80.0-100.0); MEAN CORPUSCULAR HEMOGLOBIN 31 pg (27.0-31.0); MEAN CORPUSCULAR HGB CONC 33 g/dl (33.0-37.0); MEAN PLATELET VOLUME 10.4 fl (7.4-10.4); PLATELET COUNT 239 K/mm3 (130-400); RED BLOOD COUNT 4.22 M/mm3 (4.20-5.60); REDCELL DISTRIBUTION WIDTH-CV 15.9 % (11.5-14.5)
--- NOTE | 2018-11-29 09:00 | NUR ---
here for cares. With sterile technique left upper arm PICC dressing change done with insertion site cleansed with ChloraPrep 1, chlorhexidine impregnated disc applied, skin prep, StatLock, and Tegaderm applied. No signs or symptoms of IV complications noted. No concerns voiced. Patient continue with cares in the express unit. Patient voiced understanding of instructions.
[2018-11-29 09:04] VITALS: BP 112/83; PULSE 123; TEMP 97.8
[2018-12-07 09:16] VITALS: BP 137/98; PULSE 109; TEMP 97.6
[2018-12-07 09:20] LABS: HEMOGLOBIN 11.3 g/dl (13.5-18.0); MEAN CELL VOLUME 92 fl (80.0-100.0); MEAN CORPUSCULAR HEMOGLOBIN 30 pg (27.0-31.0); MEAN CORPUSCULAR HGB CONC 33 g/dl (33.0-37.0); MEAN PLATELET VOLUME 9.6 fl (7.4-10.4); PLATELET COUNT 466 K/mm3 (130-400); RED BLOOD COUNT 3.77 M/mm3 (4.20-5.60); REDCELL DISTRIBUTION WIDTH-CV 13.7 % (11.5-14.5)
[2018-12-07 09:23] LABS: HEMATOCRIT 34.6 % (42.0-52.0)
[2018-12-07 09:28] LABS: ALBUMIN 4.3 gm/dL (3.5-5.0); BILIRUBIN,TOTAL 0.6 mg/dL (0.0-1.0); CALCIUM 10.3 mg/dL (8.4-10.2); CREATININE, serum 1.11 (0.66-1.25); POTASSIUM 3.5 mmol/L (3.4-5.0); TOTAL PROTEIN 7.4 gm/dL (6.4-8.2)
--- NOTE | 2018-12-07 09:30 | NUR ---
patient here for cares. Patient reports he was unable to come yesterday for cares due to not feeling well. Patient reports he is receiving a new chemotherapy agent. With sterile technique left upper arm PICC dressing change done with insertion site cleansed with ChloraPrep 1, chlorhexidine impregnated disc applied, skin prep, StatLock, and Tegaderm applied. No signs or symptoms of IV complications noted. No concerns voiced. Patient is to return next Thursday for cares.
[2018-12-07 10:02] LABS: BAND 5 % (0-10); LYMPHOCYTE 14 % (20.0-51.0); NEUTROPHILS 68 % (42.0-75.2); PLATELET ESTIMATE INCREASED (NORMAL)
[2018-12-13 09:10] VITALS: BP 112/71; PULSE 94; TEMP 98.2
[~2018-12-20] VITALS: Ht 167.6 cm; Wt 84.6 kg
--- NOTE | 2018-12-20 09:05 | NUR ---
patient is here for cares. With sterile technique left upper arm PICC dressing change done with insertion site cleansed with ChloraPrep 1, chlorhexidine impregnated disc applied, skin prep, StatLock, and Tegaderm applied. No signs or symptoms of IV complications noted. No concerns voiced. Patient to return next week for cares. Patient voiced understanding of instructions. Arm wrapped with Wily to protect catheter.
[2018-12-20 09:16] LABS: MEAN CELL VOLUME 92 fl (80.0-100.0); MEAN CORPUSCULAR HGB CONC 33 g/dl (33.0-37.0); MEAN PLATELET VOLUME 9.9 fl (7.4-10.4); PLATELET COUNT 116 K/mm3 (130-400); RED BLOOD COUNT 3.17 M/mm3 (4.20-5.60); REDCELL DISTRIBUTION WIDTH-CV 14.9 % (11.5-14.5)
[2018-12-20 09:27] LABS: HEMATOCRIT 29.3 % (42.0-52.0); HEMOGLOBIN 9.8 g/dl (13.5-18.0); MEAN CORPUSCULAR HEMOGLOBIN 31 pg (27.0-31.0)
[2018-12-20 09:37] LABS: ALANINE AMINOTRANSFERASE < 6 U/L (21-72); ALBUMIN 4.2 gm/dL (3.5-5.0); ALKALINE PHOSPHATASE 66 U/L (50-136); ANION GAP 15 mmol/L (7-16); AST,SGOT 19 U/L (15-37); BILIRUBIN,TOTAL 0.5 mg/dL (0.0-1.0); BLOOD UREA NITROGEN 13 mg/dL (9-20); CALCIUM 9.3 mg/dL (8.4-10.2); CARBON DIOXIDE 25 mmol/L (22-30); CHLORIDE 100 mmol/L (98-107); CREATININE, serum 1.15 (0.66-1.25); GLUCOSE 96 mg/dL (74-106); LACTATE DEHYDROGENASE 490 U/L (313-618); POTASSIUM 3.1 mmol/L (3.4-5.0); SODIUM 141 mmol/L (137-145); TOTAL PROTEIN 6.8 gm/dL (6.4-8.2)
[2018-12-20 09:39] VITALS: BP 142/98; PULSE 98; TEMP 97.9
[2018-12-20 11:03] LABS: BAND 1 % (0-10); EOSINOPHIL 4 % (0-4); LYMPHOCYTE 28 % (20.0-51.0); NEUTROPHILS 66 % (42.0-75.2); PLATELET ESTIMATE DECREASED (NORMAL)
[2018-12-20 11:05] LABS: HYPOCHROMIA 1+
== END ==
LOC: EUO
PROVIDERS: Internal Medicine Medical Oncology
DX: Z45.2 Encounter for adjustment and management of vascular access device (principal); C34.01 Malignant neoplasm of right main bronchus
CPT/HCPCS: C1751; C1892

== ENCOUNTER 2018-12-26 15:50 | Inpatient (IN) | payer MEDICARE, OTHER, MEDICAID ==
[~2018-12-26] VITALS: Ht 167.6 cm; Wt 87.0 kg
[2018-12-26 17:10] LABS: BASO % 0.2 % (0.0-2.0); EOS % 0.5 % (0-4.0); GRAN # 2.5 (1.4-6.5); GRAN % 58.5 % (42.2-75.2); LYMPH # 1.2 (1.2-3.4); LYMPH % 29.1 % (20.0-51.0); MEAN CELL VOLUME 93 fl (80.0-100.0); MEAN CORPUSCULAR HGB CONC 33 g/dl (33.0-37.0); MEAN PLATELET VOLUME 10.5 fl (7.4-10.4); MONO # 0.5 (0.1-0.6); PLATELET COUNT 154 K/mm3 (130-400); RED BLOOD COUNT 3.08 M/mm3 (4.20-5.60); REDCELL DISTRIBUTION WIDTH-CV 16.1 % (11.5-14.5)
[2018-12-26 17:13] LABS: HEMATOCRIT 28.5 % (42.0-52.0); HEMOGLOBIN 9.4 g/dl (13.5-18.0); MEAN CORPUSCULAR HEMOGLOBIN 31 pg (27.0-31.0)
[2018-12-26 17:16] LABS: PROTHROMBIN TIME 11.8 SECONDS (9.7-12.8)
[2018-12-26 17:22] LABS: ALANINE AMINOTRANSFERASE < 6 U/L (21-72); ALKALINE PHOSPHATASE 49 U/L (50-136); ANION GAP 16 mmol/L (7-16); AST,SGOT 14 U/L (15-37); BILIRUBIN,TOTAL 0.3 mg/dL (0.0-1.0); BLOOD UREA NITROGEN 25 mg/dL (9-20); CALCIUM 9.3 mg/dL (8.4-10.2); CARBON DIOXIDE 23 mmol/L (22-30); CHLORIDE 99 mmol/L (98-107); CREATININE, serum 2.98 (0.66-1.25); GLUCOSE 106 mg/dL (74-106); SODIUM 138 mmol/L (137-145); TOTAL PROTEIN 6.7 gm/dL (6.4-8.2)
[2018-12-26 17:23] LABS: C-REACTIVE PROTEIN 0.5 mg/dL (0.0-0.9); POTASSIUM 2.5 mmol/L (3.4-5.0)
[2018-12-26 17:31] LABS: TROPONIN-I < 0.012 ng/mL (0.000-0.035)
[2018-12-26 20:40] VITALS: BP 102/68; PULSE 100; TEMP 98.1
--- NOTE | 2018-12-26 21:01 | NUR ---
Pt. arrived to the floor via stretcher. Pt. able to ambulate to the bed independently. Pt. is A&OX3, assessment complete. Pt. denies pain or other needs, call light within reach.
[2018-12-26] MEDS ORDERED: THEO-DUR 3300 MG/TAB PO (21:27)
[2018-12-26] MEDS ORDERED: PRINIVIL5 MG PO (21:28)
[2018-12-26] MEDS ORDERED: ZOFRAN8 MG PO (21:29)
[2018-12-26 22:05] LABS: COLLECTION METHOD CLEAN CATCH
[2018-12-26 22:13] VITALS: BP 96/68; PULSE 96
[2018-12-26 22:17] LABS: PH 5 (5-8); SQUAMOUS EPITHELIAL None Seen /hpf; URINE APPEARANCE Clear; URINE BACTERIA None Seen /hpf; URINE BILIRUBIN Negative (NEGATIVE); URINE BLOOD Negative (NEGATIVE); URINE COLOR Straw; URINE GLUCOSE Negative (NEGATIVE); URINE KETONE Negative (NEGATIVE); URINE LEUKOCYTE ESTERASE Negative (NEGATIVE); URINE NITRATE Negative (NEGATIVE); URINE PROTEIN(semi-quant) Negative (NEGATIVE); URINE RBC 0-2 /hpf; URINE UROBILINOGEN Negative (NEGATIVE)
[2018-12-26 22:24] LABS: MAGNESIUM 1.8 mg/dL (1.6-2.3)
[2018-12-26 22:31] LABS: CREATININE, serum 2.24 (0.66-1.25)
[2018-12-26 22:32] LABS: FRACTIONAL EXCRETION OF NA+ 2.1 %
[2018-12-26 22:56] LABS: TSH w REFLEX 0.943 uIU/mL (0.465-4.680)
[2018-12-26 23:13] VITALS: BP 109/79; PULSE 92
[2018-12-27] VITALS (11 sets, daily range): BP systolic 89–149; BP diastolic 56–90; PULSE 88–105; TEMP 98.1–98.8
[2018-12-27 02:16] LABS: CALCIUM 8.3 mg/dL (8.4-10.2); CREATININE, serum 2.05 (0.66-1.25); POTASSIUM 3.4 mmol/L (3.4-5.0)
--- NOTE | 2018-12-27 09:20 | NUR ---
Pt assessment complete and charted. Pt resting in bed, breakfast arrived. Pt denies chest pain, dizziness, N/V. C/O SOB. Pt on 2L NC. JOHN PICC w/ NS running, no complications. RAC INT IV patent w/ no complications. No other needs at this time.
[2018-12-27 10:13] LABS: EOS % 0.3 % (0-4.0); GRAN # 2.5 (1.4-6.5); GRAN % 64.1 % (42.2-75.2); LYMPH # 1.1 (1.2-3.4); MEAN CELL VOLUME 97 fl (80.0-100.0); MEAN CORPUSCULAR HGB CONC 32 g/dl (33.0-37.0); MONO # 0.3 (0.1-0.6); MONO % 8.1 % (1.7-9.3); PLATELET COUNT 146 K/mm3 (130-400); RED BLOOD COUNT 2.81 M/mm3 (4.20-5.60); REDCELL DISTRIBUTION WIDTH-CV 16.8 % (11.5-14.5)
[2018-12-27 10:20] LABS: HEMATOCRIT 27.3 % (42.0-52.0); HEMOGLOBIN 8.6 g/dl (13.5-18.0); MEAN CORPUSCULAR HEMOGLOBIN 31 pg (27.0-31.0)
[2018-12-27 11:14] LABS: CALCIUM 8.5 mg/dL (8.4-10.2); CREATININE, serum 1.48 (0.66-1.25); POTASSIUM 3.7 mmol/L (3.4-5.0)
--- NOTE | 2018-12-27 11:45 | NUR ---
Admitted with PICC intact. with sterile technique left upper arm PICC dressing change done with insertion site cleansed with chloraprep x 1, chlorhexidine impregnate disk applied, skin prep, stat lock, and tegaderm applied. no signs or symptoms of IV complications noted. no concerns voiced. will continue to monitor.
--- NOTE | 2018-12-27 12:29 | NUR ---
First visit from the fire equipment inspector. No needs right now.
--- NOTE | 2018-12-27 15:41 | NUR ---
GAIL met with the patient to discuss a discharge plan. The lives in [place] with [place]. The pt has oxygen and receives his supplies from [employer] and reports independence with ADLs. The pt's PCP is Dr. Bethea and the pt receives medications from [facility] with no difficulties. The pt does have advanced directives in the EMR. The pt plans to return home upon discharge with tranpsportation provided by Elizabeth. There are no additional needs at this time.
--- NOTE | 2018-12-27 18:27 | NUR ---
PT HAS HAD UNEVENTFUL DAY. DENIES PAIN. HAS HAD A PRODUCTIVE COUGH THROUGHOUT THE DAY, NOT SPITTING UP ANY SPUTUM. NO COMPLAINTS AT THIS TIME.
--- NOTE | 2018-12-27 20:25 | NUR ---
Patient assessed at this time. Alert and oriented x 4, and able to make needs known. Complained of level 7 pain to back. Given PRN Tatum as requested per orders. PICC to left upper arm, with NS running at 100 ml/hr. Peripheral IV to right AC flushed. Both sites are without redness, warmth, swelling, and pain. Does state that he has SOB, dyspnea, and cough with brown sputum production. Unable to assess sputum at this time. LS with rhonchi throughout. HRR. Denies chest pain. Capillary refill less than 3 seconds. Non-tenting skin turgor. BSAx4. Abdomen soft and non-tender. Mild, non-pitting edema to BUE. 1+ edema to BLE. States that overall, he is feeling much better. Continues to wear oxygen at 2 L/min. Voices no questions, needs, or concerns at this time. In bed watching TV at this time. Call light is within reach.
--- NOTE | 2018-12-28 01:50 | NUR ---
Patient sitting up watching TV and eatting snack. Denies having pain and discomfort. Denies having any questions, needs, or concerns at this time. Call light is within reach. NS continues to run at 100 mls/hr to peripheral IV to LUE.
[2018-12-28 03:48] VITALS: BP 133/90; PULSE 102; TEMP 97.8
--- NOTE | 2018-12-28 04:09 | NUR ---
Patient's swelling to right arm has increased compared to left arm. Fluids running in PICC to left upper arm. Wrist band had to be cut off of right arm. Denies having pain and discomfort to arm. Called to PERFORMANCE ANALYST. New order to D/C NS. Will do ultrasound tomorrow. No other orders at this time.
--- NOTE | 2018-12-28 04:11 | NUR ---
Weight yesterday was 84.2 kg, weight at this time 87 kg.
--- NOTE | 2018-12-28 06:17 | NUR ---
Resting in bed with eyes closed at this time. Continues to deny having pain and discomfort. Voices no questions, needs, or concerns at this time. Call light is within reach. Right arm elevated on pillow.
[2018-12-28 06:44] LABS: EOS # 0.1 (0.0-0.7); EOS % 2.9 % (0-4.0); GRAN # 1.2 (1.4-6.5); GRAN % 48.4 % (42.2-75.2); LYMPH # 0.9 (1.2-3.4); LYMPH % 35.7 % (20.0-51.0); MEAN CELL VOLUME 95 fl (80.0-100.0); MEAN CORPUSCULAR HGB CONC 32 g/dl (33.0-37.0); MONO # 0.3 (0.1-0.6); MONO % 12.6 % (1.7-9.3); PLATELET COUNT 154 K/mm3 (130-400); REDCELL DISTRIBUTION WIDTH-CV 16.8 % (11.5-14.5)
[2018-12-28 06:59] LABS: HEMATOCRIT 26.6 % (42.0-52.0); HEMOGLOBIN 8.5 g/dl (13.5-18.0); MEAN CORPUSCULAR HEMOGLOBIN 30 pg (27.0-31.0)
[2018-12-28 07:05] VITALS: BP 134/85; PULSE 91; TEMP 98
[2018-12-28 07:06] LABS: CALCIUM 8.8 mg/dL (8.4-10.2); CREATININE, serum 1.09 (0.66-1.25); MAGNESIUM 1.5 mg/dL (1.6-2.3)
--- NOTE | 2018-12-28 10:25 | NUR ---
Pt assessment completed and charted. Pt has labored breathing and on 2L NC baseline. C/O DELEON. Denies chest pain, N/V, dizziness. Productive cough, per pt spitting up small amount of mucous w/ some brown tint. JOHN PICC flushes well with glood blood return. Cap was changed yesterday by this nurse. Pt has RAC IV INT w/ no fluids and not in use but does flush. Per production shift supervisor report and pt, right arm is swollen more than normal and more swollen than left. pt states he has no pain in right arm, had ultrasound that was negative. NO other concerns per pt.
--- NOTE | 2018-12-28 12:28 | NUR ---
Pt discharge instructions discussed and reviewed. All questions answered. RAC INT IV dc'd w/ catheter tip intact and no complications. JOHN PICC in place and wrapped with miguel wrap per pt request. Escorted out via WC by daphne.
== END 2018-12-28 11:45 | disposition home or self-care (01) | DRG 683 ==
LOC: COL.ER 15:50 → MEDICAL 19:55
PROVIDERS: Emergency Medicine; Nurse Practitioner Family; ADMIT Internal Medicine
DX: N17.9 Acute kidney failure, unspecified (principal); C34.90 Malignant neoplasm of unspecified part of unspecified bronchus or lung; I42.0 Dilated cardiomyopathy; J96.11 Chronic respiratory failure with hypoxia; E87.2 Acidosis; E66.9 Obesity, unspecified; J44.9 Chronic obstructive pulmonary disease, unspecified; F10.10 Alcohol abuse, uncomplicated; I10 Essential (primary) hypertension; E87.5 Hyperkalemia; E83.42 Hypomagnesemia; K21.9 Gastro-esophageal reflux disease without esophagitis; Z79.891 Long term (current) use of opiate analgesic; Z87.891 Personal history of nicotine dependence
CPT/HCPCS: 99222-AI; 99239; C9113; J1644; J3475; J3480; J7030

== ENCOUNTER 2018-12-29 01:54 | Inpatient (IN) | payer MEDICARE, OTHER, MEDICAID ==
[2018-12-29] VITALS (7 sets, daily range): BP systolic 139–158; BP diastolic 97–112; PULSE 101–152; TEMP 97.9–99.1
[~2018-12-29] VITALS: Ht 167.6 cm; Wt 84.5 kg
[~2018-12-29 01:54] MED LIST changes: +ZOFRAN8 MG PO
[2018-12-29 02:30] LABS: BASO % 0.4 % (0.0-2.0); EOS # 0.1 (0.0-0.7); EOS % 3.2 % (0-4.0); GRAN # 1.4 (1.4-6.5); GRAN % 55.1 % (42.2-75.2); LYMPH # 0.7 (1.2-3.4); LYMPH % 29.3 % (20.0-51.0); MEAN CELL VOLUME 94 fl (80.0-100.0); MEAN CORPUSCULAR HGB CONC 33 g/dl (33.0-37.0); MEAN PLATELET VOLUME 9.2 fl (7.4-10.4); MONO # 0.3 (0.1-0.6); MONO % 11.2 % (1.7-9.3); PLATELET COUNT 193 K/mm3 (130-400); RED BLOOD COUNT 3.03 M/mm3 (4.20-5.60); REDCELL DISTRIBUTION WIDTH-CV 17.1 % (11.5-14.5)
[2018-12-29 02:31] LABS: HEMATOCRIT 28.4 % (42.0-52.0); HEMOGLOBIN 9.4 g/dl (13.5-18.0); MEAN CORPUSCULAR HEMOGLOBIN 31 pg (27.0-31.0)
[2018-12-29 02:45] LABS: ALANINE AMINOTRANSFERASE 6 U/L (21-72); ALBUMIN 3.9 gm/dL (3.5-5.0); ALKALINE PHOSPHATASE 64 U/L (50-136); ANION GAP 13 mmol/L (7-16); AST,SGOT 18 U/L (15-37); BILIRUBIN,TOTAL 0.2 mg/dL (0.0-1.0); BLOOD UREA NITROGEN 6 mg/dL (9-20); C-REACTIVE PROTEIN 1.9 mg/dL (0.0-0.9); CALCIUM 9.4 mg/dL (8.4-10.2); CARBON DIOXIDE 25 mmol/L (22-30); CHLORIDE 106 mmol/L (98-107); CREATININE, serum 1.11 (0.66-1.25); GLUCOSE 100 mg/dL (74-106); SODIUM 144 mmol/L (137-145); TOTAL PROTEIN 6.5 gm/dL (6.4-8.2)
[2018-12-29 02:54] LABS: TROPONIN-I < 0.012 ng/mL (0.000-0.035)
[2018-12-29 05:29] LABS: COLLECTION METHOD CLEAN CATCH
[2018-12-29 05:36] LABS: PH 6 (5-8); SQUAMOUS EPITHELIAL None Seen /hpf; URINE APPEARANCE Clear; URINE BACTERIA None Seen /hpf; URINE BILIRUBIN Negative (NEGATIVE); URINE BLOOD Negative (NEGATIVE); URINE COLOR Yellow; URINE GLUCOSE Negative (NEGATIVE); URINE KETONE Negative (NEGATIVE); URINE LEUKOCYTE ESTERASE Negative (NEGATIVE); URINE NITRATE Negative (NEGATIVE); URINE PROTEIN(semi-quant) Negative (NEGATIVE); URINE RBC None Seen /hpf; URINE UROBILINOGEN Negative (NEGATIVE)
--- NOTE | 2018-12-29 06:17 | NUR ---
Patient arrived to medical floor from ER at approximately 0535. Alert and oriented x 4, and able to make needs known. Denies having pain and discomfort. Single lumen PICC to left upper arm patent. Site is without redness, warmth, swelling, and pain. Vancomycin and Levaquin running at this time, started in ER. Patient's breathing is labored. Reports SOB and dyspnea with minimal exertion. LS with coarse crackles/rhonchi throughout. Does have productive cough. Able to cough up a moderate amount of thick yellow/bloody sputum. Patient is wearing oxygen at 2 L/min via NC. Denies chest pain and discomfort. Heart with regular rhythm, tachycardia. Cap refill < 3 sec. Non-tent skin turgor. Does have minimal swelling to right arm compared to left. BSAx4. Abdomen soft and non-tender. Voices no questions, needs, or concerns at this time. Sitting up in bed watching TV at this time. Call light is within reach.
--- NOTE | 2018-12-29 08:00 | NUR ---
Assessment complete. Pt sitting up in bed, A&O x 4. Breath sounds with coarse crackles throughout lung nye. O2 at 2 L/min via NC. Pt reports pain to back and generalized 8 out of 10 on pain scale. Doctor notified and pain medication re-ordered, administered per orders. PICC line to left upper arm without s/s of complications. No further needs reported. Call light in reach.
--- NOTE | 2018-12-29 10:11 | NUR ---
SW met with the patient to discuss a discharge plan. The lives in [place] with [place]. The pt has oxygen and receives his supplies from [facility] and reports independence with ADLs. The pt's PCP is Dr. Bethea and [facility] with no difficulties. The pt does have advanced directives in the EMR. SW will continue to follow to assist with any discharge recommendations.
--- NOTE | 2018-12-29 17:10 | NUR ---
Pt sitting up in bed eating dinner, reports pain is beginning to increase, PRN pain medication administered per orders. Otherwise, uneventful shift. Call light in reach.
--- NOTE | 2018-12-29 18:45 | NUR ---
Tele called regarding increased heart rate, pt just up to the bathroom and back to bed.
[2018-12-29 21:11] LABS: ARTERIAL BLOOD GAS BASE EXCESS -0.3 (-2-2); ARTERIAL BLOOD GAS HCO3 21.8 meq/L (22-26); ARTERIAL BLOOD GAS pH 7.51 (7.35-7.45)
[2018-12-29 21:12] LABS: ARTERIAL BLD GAS TCO2 CT 22.7
--- NOTE | 2018-12-29 23:37 | NUR ---
At approximately 1944, BP 139/112 and pulse 122. Notifed MARKETING TEACHER in person. No new orders at this time. At approximatly 2034, tele called stating that HR was in the 130-140s. Patient had recently had a breathing treatment. Notified MARKETING TEACHER. Stated to monitor to see if it goes back down. At approximately 2049, BP 152/108, HR 152. Patient very SOB, labored breathing. O2 sats 100% with CPAP on with 3 L/min bleed in. Called MARKETING TEACHER. New order for stat EKG and ABG. EKG done, A-flutter, tachycardia with RVR. Notified MARKETING TEACHER and gerry copy to her. ABGs done. Given Ativan a 2144, along with PRN [place] for pain. Patient's breathing improved. States that he is feeling ok at this time. HR has been in the 120s. Breathing is unlabored at rest, labored with exertion. Voices no questions, needs, or concerns at this time. In bed with HOB elevated. Call light is within reach.
[2018-12-30] VITALS (7 sets, daily range): BP systolic 110–140; BP diastolic 70–99; PULSE 102–130; TEMP 97.8–99
--- NOTE | 2018-12-30 00:56 | NUR ---
Patient's pulse sitting in 110s-low 120s. States that SOB has gotten much better. Continues to wear CPAP. Voices no questions, needs, or concerns at this time. Call light is within reach.
--- NOTE | 2018-12-30 06:00 | NUR ---
Patient has had no complaints of SOB and dyspnea since given one time Ativan and PRN [place]. Denies pain and discomfort. Has been wearing CPAP throughout the night. HR has been in the 100s-110s. Voices no questions, needs, or concerns at this time. Sitting up in bed watching TV at this time. Call light is within reach. Educated that we still need a sputum sample, and voiced understanding.
[2018-12-30 06:04] LABS: BASO % 0.2 % (0.0-2.0); EOS % 0.2 % (0-4.0); GRAN # 3.4 (1.4-6.5); LYMPH # 0.8 (1.2-3.4); LYMPH % 15.4 % (20.0-51.0); MEAN CELL VOLUME 94 fl (80.0-100.0); MEAN CORPUSCULAR HGB CONC 33 g/dl (33.0-37.0); MEAN PLATELET VOLUME 9.9 fl (7.4-10.4); MONO # 0.7 (0.1-0.6); MONO % 14.6 % (1.7-9.3); PLATELET COUNT 220 K/mm3 (130-400); RED BLOOD COUNT 2.99 M/mm3 (4.20-5.60); REDCELL DISTRIBUTION WIDTH-CV 17.5 % (11.5-14.5)
[2018-12-30 06:05] LABS: HEMOGLOBIN 9.2 g/dl (13.5-18.0); MEAN CORPUSCULAR HEMOGLOBIN 31 pg (27.0-31.0)
[2018-12-30 06:16] LABS: CREATININE, serum 1.1 (0.66-1.25); POTASSIUM 3.6 mmol/L (3.4-5.0)
--- NOTE | 2018-12-30 17:00 | NUR ---
TELE CALLED THIS NURSE THIS AM DUE TO ELEVATED PULSE RATE, PT WAS UP AMBULATING EACH TIME. PROVIDER ORDERED EKG, WAS UNREMARKABLE. PT HAD NOTED SOB WITH EXERTION. PREDNISONE STARTED THIS SHIFT. O2 ON THROUGHOUT SHIFT. PT HAS NEEDED PRN NORCO X2 DURING THIS SHIFT FOR GENERALIZED PAIN. SPUTUM CULTURE OBTAINED THIS AM AND SENT TO LAB. NO OTHER ISSUES OR CONSERNS VOICED.
--- NOTE | 2018-12-30 21:32 | NUR ---
Report received from CAROLINA Worley. Patient resting in bed comfortably. Shift assessment completed at this time. Patient denied any pain at this time. Vitals all within normal limits. On tele, a fib. Denied any other needs at this time. Call light within reach.
--- NOTE | 2018-12-30 22:28 | NUR ---
Patient requested pain medication be given. PRN dose of [place] given.
[2018-12-31 03:40] VITALS: BP 130/87; PULSE 110; TEMP 98.1
--- NOTE | 2018-12-31 05:40 | NUR ---
Patient had uneventful night. Has SOA with exertion. Requested one dose of PRN [place]. Upon reassessment, pain was controlled. Resting in bed, call light within reach.
[2018-12-31 06:13] LABS: HEMATOCRIT 28.6 % (42.0-52.0); HEMOGLOBIN 9.2 g/dl (13.5-18.0); MEAN CELL VOLUME 98 fl (80.0-100.0); MEAN CORPUSCULAR HEMOGLOBIN 31 pg (27.0-31.0); MEAN CORPUSCULAR HGB CONC 32 g/dl (33.0-37.0); PLATELET COUNT 303 K/mm3 (130-400); RED BLOOD COUNT 2.93 M/mm3 (4.20-5.60); REDCELL DISTRIBUTION WIDTH-CV 18.7 % (11.5-14.5)
[2018-12-31 06:26] LABS: CALCIUM 10.3 mg/dL (8.4-10.2); CREATININE, serum 1.25 (0.66-1.25); MAGNESIUM 1.6 mg/dL (1.6-2.3); POTASSIUM 4.2 mmol/L (3.4-5.0)
--- NOTE | 2018-12-31 06:34 | NUR ---
Report given to CAROLINA Worley
[2018-12-31 06:50] LABS: ANISOCYTOSIS 1+; LYMPHOCYTE 11 % (20.0-51.0); NEUTROPHILS 85 % (42.0-75.2); NUCLEATED RED BLOOD CELL 1 (0-6); PLATELET ESTIMATE NORMAL (NORMAL)
[2018-12-31 07:09] VITALS: BP 157/97; PULSE 111; TEMP 97.8
[2018-12-31] MEDS ORDERED: PREDNISONE20 MG PO (09:51)
--- NOTE | 2018-12-31 09:53 | NUR ---
SW attended clinical rounds. The patient is to discharge back home with his life partner today, 12/31. SW followed up with the patient to discuss home health services. The patient reports that he is not interested and does not feel like he needs any home health at this time. The patient had no other questions on concerns. No additional needs at this time.
--- NOTE | 2018-12-31 11:00 | NUR ---
PT HAD UNEVENTFUL MORNING. INFORMED PT ABOUT DISCHARGE, STATED IT WOULD HAVE TO BE IN THE AFTERNOON. INFORMED HIM THAT WOULD BE FINE. REPLACING MAGNESIUM ORDERED AT THIS TIME. NEEDED PAIN PILL THIS AM FOR GENERALIZED PAIN. PT REAMIANS SOA ON EXERTION. NO OTHER CONSERS OR ISSUES VOICED AT THIS TIME.
[2018-12-31 11:23] VITALS: BP 118/73; PULSE 118; TEMP 98
--- NOTE | 2018-12-31 14:30 | NUR ---
DISCHARGE PAPERWORK COMPLETED WITH PT, SIGNATURES OBTAINED. PT GETTING BREATHING TX AT THIS TIME PRIOR TO DISCHARGE. NO QUESTIONS VOICED. SIGNIFICANT OTHER AT BEDSIDE.
--- NOTE | 2018-12-31 14:40 | NUR ---
PT ESCORTED OUT OF FACILITY VIA W/C WITH LEARNING AND DEVELOPMENT DIRECTOR. SIGNIFICANT OTHER ACCOMPANIED, AND WILL DRIVE PT HOME.
== END 2018-12-31 14:40 | disposition home or self-care (01) | DRG 190 ==
LOC: COL.ER 01:54 → MEDICAL 04:05
PROVIDERS: Emergency Medicine; Nurse Practitioner; Nurse Practitioner Family; ADMIT Student in an Organized Health Care Education/Training Program
DX: J44.1 Chronic obstructive pulmonary disease with (acute) exacerbation (principal); J96.21 Acute and chronic respiratory failure with hypoxia; C34.90 Malignant neoplasm of unspecified part of unspecified bronchus or lung; I42.0 Dilated cardiomyopathy; K21.9 Gastro-esophageal reflux disease without esophagitis; I10 Essential (primary) hypertension; F10.10 Alcohol abuse, uncomplicated; Z92.21 Personal history of antineoplastic chemotherapy; Z99.81 Dependence on supplemental oxygen; Z79.891 Long term (current) use of opiate analgesic; Z88.8 Allergy status to other drugs, medicaments and biological substances; Z87.891 Personal history of nicotine dependence; Z53.9 Procedure and treatment not carried out, unspecified reason
CPT/HCPCS: 99222-AI; 99232-AI; J1644; J1940; J1956; J2060; J2543; J3370; J3475; J7030; J7050; J7512

== ENCOUNTER → 2019-03-15 | Outpatient (CLI) | payer MEDICARE, OTHER, MEDICAID ==
[~2019-03-15] MED LIST changes: +B-121000 MCG PO; +DEMADEX10 MG PO; +K-TAB20 PO; +MAG-OX 400400 MG/TAB PO; +WELLBUTRIN SR150 M1 PO
== END ==
LOC: MHCPAIN 13:45
DX: G89.29 Other chronic pain (principal); M54.12 Radiculopathy, cervical region; M54.81 Occipital neuralgia; R51 Headache; M47.812 Spondylosis without myelopathy or radiculopathy, cervical region
CPT/HCPCS: G0463

== ENCOUNTER 2019-03-28 09:00 | Outpatient (RCR) | payer MEDICARE, OTHER, MEDICAID ==
--- NOTE | 2019-01-03 09:00 | NUR ---
Here for cares. with sterile technique left upper arm PICC dressing change done with insertion site cleansed with chloraprep x 1, chlorhexidine impregnated disk applied, skin prep, stat lock, and tegaderm applied. no signs or symptoms of IV complications noted. no concerns voiced. extra tegaderm applied on top of dressing. arm re-wrapped with miguel to protect catheter. patient to return next week for cares. voiced understanding of instructions.
[2019-01-03 09:17] LABS: HEMOGLOBIN 10.4 g/dl (13.5-18.0); MEAN CELL VOLUME 97 fl (80.0-100.0); MEAN CORPUSCULAR HEMOGLOBIN 31 pg (27.0-31.0); MEAN CORPUSCULAR HGB CONC 32 g/dl (33.0-37.0); MEAN PLATELET VOLUME 9.6 fl (7.4-10.4); PLATELET COUNT 469 K/mm3 (130-400); RED BLOOD COUNT 3.34 M/mm3 (4.20-5.60); REDCELL DISTRIBUTION WIDTH-CV 19.9 % (11.5-14.5)
[2019-01-03 09:30] LABS: HEMATOCRIT 32.4 % (42.0-52.0)
[2019-01-03 09:31] LABS: ANISOCYTOSIS 2+; HYPOCHROMIA 1+; LYMPHOCYTE 28 % (20.0-51.0); NEUTROPHILS 55 % (42.0-75.2); PLATELET ESTIMATE INCREASED (NORMAL)
[2019-01-03 09:35] VITALS: BP 142/96; PULSE 113; TEMP 97.9
--- NOTE | 2019-01-10 08:45 | NUR ---
here for cares. With sterile technique left upper arm PICC dressing change done with insertion site cleansed with ChloraPrep 1, chlorhexidine impregnated disc applied, skin prep, StatLock, and Tegaderm applied. Contacted by registered nurse PICC with no blood return noted. Port flushed with 5 mL normal saline with good blood return noted. Lab drawn. Port then flushed with 20 mL normal saline. RN informed. Patient to return next week for cares. Patient voiced understanding of instructions.
[2019-01-10 09:19] VITALS: BP 143/102; PULSE 96; TEMP 97.7
[2019-01-10 09:19] LABS: HEMATOCRIT 31.9 % (42.0-52.0); HEMOGLOBIN 10.6 g/dl (13.5-18.0); MEAN CELL VOLUME 94 fl (80.0-100.0); MEAN CORPUSCULAR HEMOGLOBIN 31 pg (27.0-31.0); MEAN CORPUSCULAR HGB CONC 33 g/dl (33.0-37.0); PLATELET COUNT 376 K/mm3 (130-400); REDCELL DISTRIBUTION WIDTH-CV 19.5 % (11.5-14.5)
[2019-01-10 10:10] LABS: ANISOCYTOSIS 2+; BAND 1 % (0-10); LYMPHOCYTE 20 % (20.0-51.0); NEUTROPHILS 70 % (42.0-75.2); PLATELET ESTIMATE NORMAL (NORMAL)
[2019-01-17 09:33] LABS: HEMOGLOBIN 11.5 g/dl (13.5-18.0); MEAN CELL VOLUME 94 fl (80.0-100.0); MEAN CORPUSCULAR HEMOGLOBIN 31 pg (27.0-31.0); MEAN CORPUSCULAR HGB CONC 33 g/dl (33.0-37.0); MEAN PLATELET VOLUME 10.3 fl (7.4-10.4); PLATELET COUNT 281 K/mm3 (130-400); RED BLOOD COUNT 3.66 M/mm3 (4.20-5.60); REDCELL DISTRIBUTION WIDTH-CV 18.1 % (11.5-14.5)
[2019-01-17 09:34] LABS: HEMATOCRIT 34.4 % (42.0-52.0)
[2019-01-17 09:38] VITALS: BP 113/91; PULSE 104; TEMP 97.9
[2019-01-17 10:03] LABS: ANISOCYTOSIS 1+; LYMPHOCYTE 24 % (20.0-51.0); NEUTROPHILS 70 % (42.0-75.2); PLATELET ESTIMATE NORMAL (NORMAL)
[2019-01-25 08:49] VITALS: BP 137/93; PULSE 103; TEMP 97.6
[2019-01-25 09:13] LABS: HEMOGLOBIN 10.1 g/dl (13.5-18.0); MEAN CELL VOLUME 95 fl (80.0-100.0); MEAN CORPUSCULAR HEMOGLOBIN 31 pg (27.0-31.0); MEAN CORPUSCULAR HGB CONC 33 g/dl (33.0-37.0); MEAN PLATELET VOLUME 10.4 fl (7.4-10.4); PLATELET COUNT 197 K/mm3 (130-400); RED BLOOD COUNT 3.24 M/mm3 (4.20-5.60); REDCELL DISTRIBUTION WIDTH-CV 17.6 % (11.5-14.5)
[2019-01-25 09:14] LABS: HEMATOCRIT 30.7 % (42.0-52.0)
[2019-01-25 09:27] LABS: ANISOCYTOSIS 1+; LYMPHOCYTE 12 % (20.0-51.0); NEUTROPHILS 86 % (42.0-75.2); PLATELET ESTIMATE NORMAL (NORMAL)
--- NOTE | 2019-01-31 09:00 | NUR ---
Here for cares. PICC intact left upper arm with sterile dressing change done with insertion site cleansed with chloraprep x 1, chlorhexidine disk applied, skin prep, stat lock, and tegaderm applied. no signs or symptoms of IV complications noted. no concerns voiced. to return next week for cares. voiced understanding of instructions.
[2019-01-31 09:17] LABS: MEAN CELL VOLUME 95 fl (80.0-100.0); MEAN CORPUSCULAR HGB CONC 34 g/dl (33.0-37.0); MEAN PLATELET VOLUME 10.1 fl (7.4-10.4); PLATELET COUNT 197 K/mm3 (130-400); RED BLOOD COUNT 2.84 M/mm3 (4.20-5.60); REDCELL DISTRIBUTION WIDTH-CV 17.4 % (11.5-14.5)
[2019-01-31 09:25] LABS: HEMATOCRIT 26.9 % (42.0-52.0); MEAN CORPUSCULAR HEMOGLOBIN 32 pg (27.0-31.0)
[2019-01-31 09:31] LABS: ALBUMIN 4.1 gm/dL (3.5-5.0); BILIRUBIN,TOTAL 0.7 mg/dL (0.0-1.0); CALCIUM 8.9 mg/dL (8.4-10.2); CREATININE, serum 1.13 (0.66-1.25); TOTAL PROTEIN 6.6 gm/dL (6.4-8.2)
[2019-01-31 09:34] VITALS: BP 130/95; PULSE 100; TEMP 98.5
[2019-01-31 09:40] LABS: POTASSIUM 2.8 mmol/L (3.4-5.0)
[2019-01-31 10:01] LABS: BAND 6 % (0-10); LYMPHOCYTE 21 % (20.0-51.0); NEUTROPHILS 65 % (42.0-75.2)
[2019-01-31 10:03] LABS: ANISOCYTOSIS 1+; HYPOCHROMIA 2+; PLATELET ESTIMATE NORMAL (NORMAL)
--- NOTE | 2019-02-07 09:00 | NUR ---
patient here for cares. With sterile technique left upper arm PICC dressing change done with insertion site cleansed with ChloraPrep 1, chlorhexidine impregnated disc applied, skin prep, StatLock, and Tegaderm applied. No signs or symptoms of IV complications noted. No concerns voiced. Patient return next week for cares. Patient voiced understanding of instructions.
[2019-02-07 09:05] VITALS: BP 138/89; PULSE 107; TEMP 97.9
[2019-02-07 09:18] LABS: MEAN CELL VOLUME 95 fl (80.0-100.0); MEAN CORPUSCULAR HGB CONC 33 g/dl (33.0-37.0); PLATELET COUNT 273 K/mm3 (130-400); RED BLOOD COUNT 3.08 M/mm3 (4.20-5.60)
[2019-02-07 09:48] LABS: ANISOCYTOSIS 2+; EOSINOPHIL 1 % (0-4); LYMPHOCYTE 40 % (20.0-51.0); NEUTROPHILS 43 % (42.0-75.2); PLATELET ESTIMATE NORMAL (NORMAL); POLYCHROMASIA 1+
[2019-02-07 09:49] LABS: HEMATOCRIT 29.3 % (42.0-52.0); HEMOGLOBIN 9.8 g/dl (13.5-18.0); MEAN CORPUSCULAR HEMOGLOBIN 32 pg (27.0-31.0)
--- NOTE | 2019-02-14 08:50 | NUR ---
Here for cares. PICC intact left upper arm. with sterile technique left upper arm PICC dressing change done with insertion site cleansed with chloraprep x 1, chlorhexidine impregnate disk applied, skin prep, stat lock, and tegaderm applied. no signs or symptoms of IV complications noted. no concerns voiced. to return next week for cares. voiced understanding of instructions.
[2019-02-14 09:17] VITALS: BP 119/92; PULSE 108; TEMP 97.9
[2019-02-14 09:28] LABS: HEMATOCRIT 30.6 % (42.0-52.0); HEMOGLOBIN 10.2 g/dl (13.5-18.0); MEAN CELL VOLUME 96 fl (80.0-100.0); MEAN CORPUSCULAR HEMOGLOBIN 32 pg (27.0-31.0); MEAN CORPUSCULAR HGB CONC 33 g/dl (33.0-37.0); MEAN PLATELET VOLUME 10.2 fl (7.4-10.4); PLATELET COUNT 372 K/mm3 (130-400); RED BLOOD COUNT 3.18 M/mm3 (4.20-5.60); REDCELL DISTRIBUTION WIDTH-CV 17.1 % (11.5-14.5)
[2019-02-14 09:46] LABS: ANISOCYTOSIS 1+; EOSINOPHIL 1 % (0-4); LYMPHOCYTE 44 % (20.0-51.0); NEUTROPHILS 52 % (42.0-75.2); PLATELET ESTIMATE NORMAL (NORMAL)
--- NOTE | 2019-02-22 08:45 | NUR ---
Here for cares. with sterile technique left upper arm PICC dressing change done with insertion site cleansed with chloraprep x 1, chlorhexidine impregnated disk applied, skin prep, stat lock, and tegaderm applied. no signs or symptoms of IV complications noted. no concerns voiced. re-wrapped with miguel to protect catheter. to return next week for cares. voiced understanding of instructions.
[2019-02-22 09:00] VITALS: BP 144/87; PULSE 107; TEMP 98.2
[2019-02-22 09:17] LABS: MEAN CELL VOLUME 98 fl (80.0-100.0); MEAN CORPUSCULAR HGB CONC 33 g/dl (33.0-37.0); PLATELET COUNT 136 K/mm3 (130-400); RED BLOOD COUNT 2.52 M/mm3 (4.20-5.60); REDCELL DISTRIBUTION WIDTH-CV 15.8 % (11.5-14.5)
[2019-02-22 09:25] LABS: HEMOGLOBIN 8.1 g/dl (13.5-18.0); MEAN CORPUSCULAR HEMOGLOBIN 32 pg (27.0-31.0)
[2019-02-22 09:26] LABS: HEMATOCRIT 24.7 % (42.0-52.0)
[2019-02-22 10:25] LABS: BAND 2 % (0-10); LYMPHOCYTE 45 % (20.0-51.0); NEUTROPHILS 53 % (42.0-75.2); PLATELET ESTIMATE NORMAL (NORMAL)
--- NOTE | 2019-03-01 10:00 | NUR ---
here for cares. With sterile technique left upper arm PICC dressing change done with insertion site cleansed with ChloraPrep 1, chlorhexidine impregnated disc applied, skin prep, StatLock, and Tegaderm applied. No signs or symptoms of IV complications noted. No concerns voiced. Arm wrapped with [place] to protect catheter. Patient to return next week for cares. Patient voiced understanding of instructions.
[2019-03-01 10:12] LABS: ALBUMIN 4.5 gm/dL (3.5-5.0); CALCIUM 9.5 mg/dL (8.4-10.2); CREATININE, serum 0.9 (0.66-1.25); TOTAL PROTEIN 7.2 gm/dL (6.4-8.2)
[2019-03-01 10:19] VITALS: BP 112/76; PULSE 112; TEMP 98.2
[2019-03-01 10:27] LABS: POTASSIUM 2.9 mmol/L (3.4-5.0)
[2019-03-01 10:31] LABS: BAND 5 % (0-10); LYMPHOCYTE 37 % (20.0-51.0); METAMYELOCYTE 1 % (0-0); NEUTROPHILS 52 % (42.0-75.2); PLATELET ESTIMATE DECREASED (NORMAL)
[2019-03-01 10:32] LABS: ANISOCYTOSIS 1+; HYPOCHROMIA 2+
[2019-03-01 10:38] LABS: HEMATOCRIT 23.7 % (42.0-52.0); HEMOGLOBIN 7.9 g/dl (13.5-18.0); MEAN CELL VOLUME 96 fl (80.0-100.0); MEAN CORPUSCULAR HEMOGLOBIN 32 pg (27.0-31.0); MEAN CORPUSCULAR HGB CONC 33 g/dl (33.0-37.0); PLATELET COUNT 123 K/mm3 (130-400); RED BLOOD COUNT 2.46 M/mm3 (4.20-5.60); REDCELL DISTRIBUTION WIDTH-CV 15.4 % (11.5-14.5)
--- NOTE | 2019-03-14 09:00 | NUR ---
Here for cares. left upper arm PICC intact with dressing change done with insertion site cleansed with chloraprep x 1, chlorhexidine impregnated disk applied, skin prep, stat lock, and tegaderm applied. no signs or symptoms of IV complications noted. no concerns voiced. to return next week for cares. arm wrapped with miguel to protect catheter. voiced understanding of instructions.
[2019-03-14 09:08] LABS: MEAN CELL VOLUME 109 fl (80.0-100.0); MEAN CORPUSCULAR HGB CONC 31 g/dl (33.0-37.0); MEAN PLATELET VOLUME 10.3 fl (7.4-10.4); PLATELET COUNT 393 K/mm3 (130-400); RED BLOOD COUNT 2.84 M/mm3 (4.20-5.60); REDCELL DISTRIBUTION WIDTH-CV 19.9 % (11.5-14.5)
[2019-03-14 09:16] VITALS: BP 145/101; PULSE 105; TEMP 98.3
[2019-03-14 09:17] LABS: HEMATOCRIT 30.8 % (42.0-52.0); HEMOGLOBIN 9.6 g/dl (13.5-18.0); MEAN CORPUSCULAR HEMOGLOBIN 34 pg (27.0-31.0)
[2019-03-14 11:28] LABS: ANISOCYTOSIS 1+; BAND 22 % (0-10); HYPOCHROMIA 3+; LYMPHOCYTE 35 % (20.0-51.0); NEUTROPHILS 32 % (42.0-75.2); NUCLEATED RED BLOOD CELL 2 (0-6); PLATELET ESTIMATE NORMAL (NORMAL); POLYCHROMASIA 1+
--- NOTE | 2019-03-21 09:00 | NUR ---
Here for cares. PICC intact left upper arm with sterile dressing change done with insertion site cleansed with chloraprep x 1, chlorhexidine impregnated disk applied, skin prep, stat lock, and tegaderm applied. no signs or symptoms of IV complications noted. no concerns voiced. re-wrapped with miguel to protect catheter. patient to return next week for cares. voiced understanding of instructions.
[2019-03-21 09:18] LABS: HEMOGLOBIN 11.3 g/dl (13.5-18.0); MEAN CELL VOLUME 107 fl (80.0-100.0); MEAN CORPUSCULAR HEMOGLOBIN 35 pg (27.0-31.0); MEAN CORPUSCULAR HGB CONC 32 g/dl (33.0-37.0); MEAN PLATELET VOLUME 9.9 fl (7.4-10.4); PLATELET COUNT 334 K/mm3 (130-400); RED BLOOD COUNT 3.27 M/mm3 (4.20-5.60); REDCELL DISTRIBUTION WIDTH-CV 18.6 % (11.5-14.5)
[2019-03-21 09:22] VITALS: BP 135/88; PULSE 102; TEMP 98.6
[2019-03-21 09:25] LABS: HEMATOCRIT 35.1 % (42.0-52.0)
[2019-03-21 10:42] LABS: BAND 1 % (0-10); EOSINOPHIL 1 % (0-4); LYMPHOCYTE 13 % (20.0-51.0); NEUTROPHILS 65 % (42.0-75.2)
[2019-03-21 10:43] LABS: ANISOCYTOSIS 2+; HYPOCHROMIA 1+; PLATELET ESTIMATE NORMAL (NORMAL); POLYCHROMASIA 1+; STOMATOCYTE 1+
[2019-03-21 10:44] LABS: MICROCYTOSIS 1+
[~2019-03-28] VITALS: Ht 167.6 cm; Wt 85.8 kg
[2019-03-28 09:11] VITALS: BP 111/85; PULSE 118; TEMP 97.5
[2019-03-28 09:21] LABS: HEMOGLOBIN 11.6 g/dl (13.5-18.0); MEAN CELL VOLUME 108 fl (80.0-100.0); MEAN CORPUSCULAR HEMOGLOBIN 35 pg (27.0-31.0); MEAN CORPUSCULAR HGB CONC 32 g/dl (33.0-37.0); MEAN PLATELET VOLUME 10.4 fl (7.4-10.4); PLATELET COUNT 247 K/mm3 (130-400); RED BLOOD COUNT 3.34 M/mm3 (4.20-5.60); REDCELL DISTRIBUTION WIDTH-CV 16.5 % (11.5-14.5)
[2019-03-28 09:32] LABS: ALBUMIN 4.4 gm/dL (3.5-5.0); BILIRUBIN,TOTAL 0.7 mg/dL (0.0-1.0); CALCIUM 9.5 mg/dL (8.4-10.2); CREATININE, serum 1.27 (0.66-1.25); POTASSIUM 3.5 mmol/L (3.4-5.0)
[2019-03-28 09:43] LABS: BAND 2 % (0-10); BASOPHIL 1 % (0-2); HYPOCHROMIA 1+; LYMPHOCYTE 20 % (20.0-51.0); NEUTROPHILS 68 % (42.0-75.2)
[2019-03-28 09:44] LABS: ANISOCYTOSIS 1+
--- NOTE | 2019-03-28 09:50 | NUR ---
Here for cares. with sterile technique left upper arm PICC dressing change done with insertion site cleansed with chloraprep x 1, chlorhexidine impregnated disk applied, skin prep, stat lock, and tegaderm applied. no signs or symptoms of IV complications noted. no concerns voiced. to return next week for cares. voiced understanding of instructions.
== END 2019-04-01 21:07 | disposition home or self-care (01) ==
LOC: EUO 09:00
PROVIDERS: Internal Medicine Medical Oncology
DX: C34.01 Malignant neoplasm of right main bronchus (principal)

== ENCOUNTER 2019-04-11 09:00 | Outpatient (RCR) | payer MEDICARE, OTHER, MEDICAID ==
--- NOTE | 2019-04-04 11:15 | NUR ---
here for cares. Explained the procedure to the patient. With sterile technique left upper arm PICC dressing change done with insertion site cleansed with ChloraPrep 1, chlorhexidine impregnated disc applied, skin prep, StatLock, and Tegaderm applied. No signs or symptoms of IV complications noted. No concerns voiced. Arm wrapped with [place] to protect catheter. Patient return next week for cares. Patient voiced understanding of instructions.
[2019-04-04 11:30] VITALS: BP 108/76; PULSE 110; TEMP 98.1
[2019-04-04 11:42] LABS: HEMOGLOBIN 10.5 g/dl (13.5-18.0); MEAN CORPUSCULAR HEMOGLOBIN 35 pg (27.0-31.0); MEAN CORPUSCULAR HGB CONC 34 g/dl (33.0-37.0); MEAN PLATELET VOLUME 11.1 fl (7.4-10.4); PLATELET COUNT 198 K/mm3 (130-400); RED BLOOD COUNT 3.01 M/mm3 (4.20-5.60); REDCELL DISTRIBUTION WIDTH-CV 15.4 % (11.5-14.5)
[2019-04-04 12:04] LABS: BAND 2 % (0-10); LYMPHOCYTE 22 % (20.0-51.0); NEUTROPHILS 65 % (42.0-75.2); PLATELET ESTIMATE NORMAL (NORMAL)
[2019-04-04 12:13] LABS: HEMATOCRIT 31.1 % (42.0-52.0)
[2019-04-04 12:14] LABS: MEAN CELL VOLUME 103 fl (80.0-100.0)
[~2019-04-11] VITALS: Ht 167.6 cm; Wt 85.5 kg
--- NOTE | 2019-04-11 09:00 | NUR ---
Here for cares. with sterile techique left upper arm with sterile technique left upper PICC dressing change done with insertion site cleansed with chloraprep x 1, chlorhexidine impregnated disk applied, skin prep, stat lock, and tegaderm applied. no signs or symptoms of IV complications noted. no concerns voiced. re-wrapped with miguel to protect catheter. to return next week for cares. voiced understanding of instructions.
[2019-04-11 09:03] VITALS: BP 118/82; PULSE 116; TEMP 97.5
[2019-04-11 09:27] LABS: HEMOGLOBIN 10.1 g/dl (13.5-18.0); MEAN CELL VOLUME 103 fl (80.0-100.0); MEAN CORPUSCULAR HEMOGLOBIN 34 pg (27.0-31.0); MEAN CORPUSCULAR HGB CONC 33 g/dl (33.0-37.0); MEAN PLATELET VOLUME 10.7 fl (7.4-10.4); PLATELET COUNT 255 K/mm3 (130-400); RED BLOOD COUNT 2.95 M/mm3 (4.20-5.60); REDCELL DISTRIBUTION WIDTH-CV 14.9 % (11.5-14.5)
[2019-04-11 09:43] LABS: HEMATOCRIT 30.5 % (42.0-52.0)
[2019-04-11 13:52] LABS: ANISOCYTOSIS 1+; BAND 18 % (0-10); BASOPHIL 1 % (0-2); LYMPHOCYTE 28 % (20.0-51.0); METAMYELOCYTE 1 % (0-0); NEUTROPHILS 51 % (42.0-75.2); PLATELET ESTIMATE NORMAL (NORMAL)
[2019-04-22] MEDS ORDERED: PREDNISONE20 MG PO (14:58)
[2019-04-22] MEDS ORDERED: ZITHROMAX 250M250 MG PO (15:02)
== END 2019-04-25 13:29 | disposition still patient (30) ==
LOC: EUO 09:00
PROVIDERS: Internal Medicine Medical Oncology
DX: C34.01 Malignant neoplasm of right main bronchus (principal)

== ENCOUNTER → 2019-04-13 | Outpatient (CLI) | payer MEDICARE, OTHER, MEDICAID | LOC: MHCPAIN 12:38 | DX: G89.29 Other chronic pain (principal); M54.12 Radiculopathy, cervical region; M47.812 Spondylosis without myelopathy or radiculopathy, cervical region | CPT/HCPCS: G0463 ==

== ENCOUNTER 2019-04-17 21:08 | Inpatient (IN) | payer MEDICARE, OTHER, MEDICAID ==
[~2019-04-17] VITALS: Ht 167.6 cm; Wt 84.7 kg
[2019-04-17 21:40] LABS: MEAN CELL VOLUME 102 fl (80.0-100.0); MEAN CORPUSCULAR HEMOGLOBIN 34 pg (27.0-31.0); MEAN CORPUSCULAR HGB CONC 33 g/dl (33.0-37.0); MEAN PLATELET VOLUME 10.4 fl (7.4-10.4); PLATELET COUNT 265 K/mm3 (130-400); RED BLOOD COUNT 2.95 M/mm3 (4.20-5.60)
[2019-04-17 22:03] LABS: ALBUMIN 4.3 gm/dL (3.5-5.0); BILIRUBIN,TOTAL 0.2 mg/dL (0.0-1.0); CALCIUM 9.1 mg/dL (8.4-10.2); CREATININE, serum 1.25 (0.66-1.25); TOTAL PROTEIN 6.9 gm/dL (6.4-8.2)
[2019-04-17 22:14] LABS: TROPONIN-I 0.013 ng/mL (0.000-0.035)
[2019-04-17 22:15] LABS: POTASSIUM 2.8 mmol/L (3.4-5.0)
[2019-04-17 22:55] LABS: BAND 5 % (0-10); MYELOCYTE 2 % (0-0); NEUTROPHILS 60 % (42.0-75.2); PLATELET ESTIMATE NORMAL (NORMAL)
[2019-04-17 22:56] LABS: LYMPHOCYTE 29 % (20.0-51.0)
--- NOTE | 2019-04-17 23:54 | NUR ---
Report received from CAROLINA Estrada in ED
[2019-04-18] VITALS (7 sets, daily range): BP systolic 118–152; BP diastolic 84–97; PULSE 86–102; TEMP 97.9–99
[2019-04-18 00:20] LABS: COLLECTION METHOD CLEAN CATCH
[2019-04-18 00:27] LABS: PH 6 (5-8); SQUAMOUS EPITHELIAL 0-2 /hpf; URINE APPEARANCE Clear; URINE BACTERIA None Seen /hpf; URINE BILIRUBIN Negative (NEGATIVE); URINE BLOOD Negative (NEGATIVE); URINE COLOR Yellow; URINE GLUCOSE Negative (NEGATIVE); URINE KETONE Negative (NEGATIVE); URINE LEUKOCYTE ESTERASE Negative (NEGATIVE); URINE NITRATE Negative (NEGATIVE); URINE PROTEIN(semi-quant) Negative (NEGATIVE); URINE RBC None Seen /hpf; URINE UROBILINOGEN Negative (NEGATIVE)
--- NOTE | 2019-04-18 00:52 | NUR ---
Arrived to medical floor. Assessment complete. Wheezing throughout all nye on inspiration and expiration. Tachypnea with labored breathing present. heart sounds normal. Bowels active x4. Pulses strong throughout. Bilateral lower leg edema +1. Reports 7/10 stabbing back pain at this time. Request breathing treatment and pain medications. Orientated to medical floor. Denies other needs at this time. PICC caps changed. Finishing ED orders for fluids then will switch to new orders. Dr. Gallego notified of patient arrival. Med rec complete. Notified of respiratory status. Requested breathing tx and pain medication for patient. Will place orders.
--- NOTE | 2019-04-18 01:02 | NUR ---
Provided patient with PIERRE henry for 8/10 stabbing lower back pain at this time.
--- NOTE | 2019-04-18 02:00 | NUR ---
Reports relief with recent breathing treatment and pain medications. Denies needs at this time. Call light in reach.
--- NOTE | 2019-04-18 04:00 | NUR ---
Resting in bed. Denies needs. Call light in reach.
--- NOTE | 2019-04-18 05:15 | NUR ---
Reports 6/10 lower back pain. Requested PRN norco. Audible wheezing- contacted respiratory for breathing treatment. Denies other needs at this time. Call light in reach.
[2019-04-18 05:43] LABS: BASO % 0.3 % (0.0-2.0); GRAN # 2.6 (1.4-6.5); GRAN % 87.5 % (42.2-75.2); LYMPH # 0.3 (1.2-3.4); LYMPH % 9.6 % (20.0-51.0); MEAN CELL VOLUME 103 fl (80.0-100.0); MEAN CORPUSCULAR HGB CONC 33 g/dl (33.0-37.0); MEAN PLATELET VOLUME 10.3 fl (7.4-10.4); MONO % 1.3 % (1.7-9.3); PLATELET COUNT 248 K/mm3 (130-400); RED BLOOD COUNT 2.84 M/mm3 (4.20-5.60); REDCELL DISTRIBUTION WIDTH-CV 15.2 % (11.5-14.5)
[2019-04-18 05:45] LABS: HEMATOCRIT 29.3 % (42.0-52.0); HEMOGLOBIN 9.7 g/dl (13.5-18.0); MEAN CORPUSCULAR HEMOGLOBIN 34 pg (27.0-31.0)
[2019-04-18 05:57] LABS: CALCIUM 8.6 mg/dL (8.4-10.2); CREATININE, serum 0.97 (0.66-1.25); PHOSPHOROUS 2.3 mg/dL (2.5-4.5); POTASSIUM 3.9 mmol/L (3.4-5.0)
--- NOTE | 2019-04-18 06:35 | NUR ---
appears to be dozing but awakens easily, bedside shift report received from CAROLINA Cunha
--- NOTE | 2019-04-18 06:39 | NUR ---
Report given to CAROLINA Means
--- NOTE | 2019-04-18 07:05 | NUR ---
Patient required x2 doses of norco and x2 breathing treatments throughout night. Otherwise uneventful. Resting in bed this AM. Call light in reach.
--- NOTE | 2019-04-18 07:35 | NUR ---
resting in bed with head of bed elevated, c/o shortness of air at this time, cardiopulmonary notified to administer breathing treatment
[2019-04-18 07:58] LABS: PATHOLOGY DIFF REVIEW OK +
--- NOTE | 2019-04-18 08:00 | NUR ---
cardiopulmonary in and providng breathing treatment
--- NOTE | 2019-04-18 08:30 | NUR ---
had breathing treatment and states it helped some, Dr Vicente in to see patient, he is now sitting up in bed eating breakfst brougth in by , denies needs
--- NOTE | 2019-04-18 09:24 | NUR ---
had breakfast and tolerated well, breathing is still labored and tachypneic but lungs are CTA, denies needs at this time
--- NOTE | 2019-04-18 10:20 | NUR ---
Patient admitted with PICC in place. With sterile technique left upper arm PICC dressing change done with insertion site cleansed with ChloraPrep 1, chlorhexidine impregnated disc applied, skin prep, StatLock, and Tegaderm applied. No signs or symptoms of IV complications noted. No concerns voiced. Patient to return to express unit next Thursday as scheduled. Patient voiced understanding of instructions.
--- NOTE | 2019-04-18 11:02 | NUR ---
looked in on patient less than 5 minutes ago and he appeared to be sleeping, he is now awake and having shortness of air, he states he was asleep and it woke him up, cardiopulmonary notified and will come to give breathing treatment
--- NOTE | 2019-04-18 11:25 | NUR ---
Dr Castorena and care team in to see patient
--- NOTE | 2019-04-18 11:55 | NUR ---
cardiopulmonary was in and breathing treatment administered, denies pain or needs
--- NOTE | 2019-04-18 14:00 | NUR ---
c/o back pain, medicated with hydrocodone 5mg 2 tabs, eating lunch
--- NOTE | 2019-04-18 14:04 | NUR ---
First visit from the infusion nurse. No needs right now.
--- NOTE | 2019-04-18 14:59 | NUR ---
GAIL met with the patient to discuss discharge plan. The patient lives in [place] with his life partner, Daphne (ph#[phone]). He reports independence with ADLs and does not use any assistive devices. He has continuous oxygen from [employer]. He states that he does have health services from [facility] for group home. GAIL contacted and confirmed services from [facility] at [facility]. The patient's PCP is Dr. Jeanna Bethea and he receives his medications at [facility]. He reports no difficulties obtaining his meds. The patient's advanced directives are in EMR and his DPOA-HC is his life partner, Daphne. The patient plans to return home with Daphne upon discharge and resume home health services from [facility] upon discharge. GAIL faxed updates to [facility] and will continue to follow.
--- NOTE | 2019-04-18 15:13 | NUR ---
resting in bed, cariopulmonary in administering breathing treatment
--- NOTE | 2019-04-18 16:40 | NUR ---
watching TV, bedside shift report given to CAROLINA Malin
--- NOTE | 2019-04-18 20:00 | NUR ---
Assessment complete. Pt c/o SOB and requesting breathing treatment. RT administered breathing treatments with relief. Bilateral wheezing to all lobe nye. Alert and oriented. Denies pain or discomfort at this time. Has tolerable back pain, rate 3/10, that was relieved with PRN pain meds from previous shift. On 3LO2 via NC. On tele, leads checked and in place. Medications administered as ordered. JOHN PICC flushed, dressing CDI. Needs attended too. Call light within reach.
[2019-04-19 03:27] VITALS: BP 132/79; PULSE 100; TEMP 97.7
--- NOTE | 2019-04-19 05:24 | NUR ---
Pt slept most of the night with vent on. c/o back pain, rate 7/10, PRN [place] administered as requested by pt. Medications administered as ordered. Needs met. Call light within reach.
--- NOTE | 2019-04-19 07:00 | NUR ---
YISEL REAGAN AM, LIZ DESAI.
[2019-04-19 07:35] VITALS: BP 134/82; PULSE 96; TEMP 98.6
--- NOTE | 2019-04-19 08:26 | NUR ---
Pt awake and alert, talkative, no C/O pain, shift assessments complete, Pt has audible wheezing in all nye, PRN treatment was given this morning. left Pt call light in reach, bed in lowest position.
[2019-04-19 08:37] LABS: GRAN # 7.2 (1.4-6.5); GRAN % 89.2 % (42.2-75.2); LYMPH # 0.3 (1.2-3.4); MEAN CELL VOLUME 105 fl (80.0-100.0); MEAN CORPUSCULAR HGB CONC 32 g/dl (33.0-37.0); MEAN PLATELET VOLUME 9.9 fl (7.4-10.4); MONO # 0.5 (0.1-0.6); MONO % 5.8 % (1.7-9.3); PLATELET COUNT 235 K/mm3 (130-400); RED BLOOD COUNT 2.78 M/mm3 (4.20-5.60)
[2019-04-19 08:42] LABS: HEMATOCRIT 29.2 % (42.0-52.0); HEMOGLOBIN 9.4 g/dl (13.5-18.0); MEAN CORPUSCULAR HEMOGLOBIN 34 pg (27.0-31.0)
[2019-04-19 08:47] LABS: CALCIUM 8.9 mg/dL (8.4-10.2); CREATININE, serum 0.96 (0.66-1.25); MAGNESIUM 1.7 mg/dL (1.6-2.3); PHOSPHOROUS 1.6 mg/dL (2.5-4.5); POTASSIUM 3.4 mmol/L (3.4-5.0)
[2019-04-19 11:35] VITALS: BP 132/98; PULSE 98; TEMP 97.9
[2019-04-19 15:37] VITALS: BP 141/83; PULSE 91; TEMP 98.5
--- NOTE | 2019-04-19 20:10 | NUR ---
Resting in bed. Assessment complete. Patient has shortness of breath and labored breathing while at rest. Wheezing throughout all lung nye and audible wheezing present. Patient to receieve breathing treatment this evening. Patient currently on 3L via nasal cannula. Heart sounds normal. Bowels active x4. Pulses strong throughout. Bilateral lower leg edema +1. PICC to left upper arm flushes without difficulty. Patient rating back pain 6.5/10. Provided with PRN norco at this time. Denies other needs. Would like shower later this eveing. Call light in reach.
[2019-04-19 20:38] VITALS: BP 152/99; PULSE 98; TEMP 98.2
--- NOTE | 2019-04-19 21:55 | NUR ---
Patient showering at this time.
[2019-04-20] VITALS (11 sets, daily range): BP systolic 111–176; BP diastolic 72–121; PULSE 94–108; TEMP 97.4–99.3
--- NOTE | 2019-04-20 00:36 | NUR ---
Blood pressure elevated. Patient reporting pain. Provided pain medication and will reassess blood pressure in 45mins to 1hr after onset of pain medication.
--- NOTE | 2019-04-20 01:40 | NUR ---
Patient blood pressure continued to be elevated. Devi CRAWFORD notified. Added order for hydralazine at this time. Will provide to patient.
--- NOTE | 2019-04-20 05:49 | NUR ---
Reports 6/10 back pain. Requested/provided with PRN [place]. Denies other needs. Call light in reach.
--- NOTE | 2019-04-20 05:53 | NUR ---
Patient required x3 doses of norco for pain control throughout night. Otherwise uneventful. Resting in bed this AM. Call light in reach.
[2019-04-20 06:01] LABS: MEAN CELL VOLUME 108 fl (80.0-100.0); MEAN CORPUSCULAR HGB CONC 32 g/dl (33.0-37.0); MEAN PLATELET VOLUME 10.6 fl (7.4-10.4); PLATELET COUNT 257 K/mm3 (130-400); RED BLOOD COUNT 2.83 M/mm3 (4.20-5.60); REDCELL DISTRIBUTION WIDTH-CV 16.6 % (11.5-14.5)
[2019-04-20 06:15] LABS: CALCIUM 9.2 mg/dL (8.4-10.2); CREATININE, serum 0.97 (0.66-1.25); MAGNESIUM 1.8 mg/dL (1.6-2.3); PHOSPHOROUS 2.1 mg/dL (2.5-4.5); POTASSIUM 3.6 mmol/L (3.4-5.0)
[2019-04-20 06:23] LABS: HEMATOCRIT 30.5 % (42.0-52.0); HEMOGLOBIN 9.6 g/dl (13.5-18.0); MEAN CORPUSCULAR HEMOGLOBIN 34 pg (27.0-31.0)
--- NOTE | 2019-04-20 07:07 | NUR ---
patient tolerated well on METANEB
--- NOTE | 2019-04-20 07:31 | NUR ---
Report given to CAROLINA Schmitt
--- NOTE | 2019-04-20 08:00 | NUR ---
Patient sitting up in bed eating breakfast, at the best side. Assessment completed. A&O x4. VSS O2 3.5L NC No reported SOB. Iv CDI. Denies pain and discomfort. no further needs expressed from patient, call light within reach.
[2019-04-20 09:26] LABS: BAND 3 % (0-10); LYMPHOCYTE 7 % (20.0-51.0); NEUTROPHILS 83 % (42.0-75.2); NUCLEATED RED BLOOD CELL 2 (0-6); PLATELET ESTIMATE NORMAL (NORMAL)
[2019-04-20 09:27] LABS: ANISOCYTOSIS 2+
--- NOTE | 2019-04-20 18:24 | NUR ---
Patient sitting up in bed. A&O x4. Pt complaining of lower back pain, PRN pain medication was given upon request. No complaints of SOB. O2 @3 L via NC. IV CD&I. No other needs were expressed. Call light in reach.
--- NOTE | 2019-04-20 21:20 | NUR ---
Patient assessed at this time. Alert and oriented x 4, and able to make needs known. Reported level 7 pain to lower back. Given PRN [place] as requested for pain. Denies SOB at rest, but reportes SOB with exertion. On oxygen at 3 L/min via NC. Respirations even and unlabored at this time. LS with coarse crackles throughout. Does report cough, no sputum production. Capillary refill less than 3 seconds. Non-tenting skin turgor. BSAx4. Abdomen soft and non-tender. No edema. PICC to LUE. Voices no questions, needs, or concerns at this time. Resting in bed with call light within reach.
--- NOTE | 2019-04-20 23:10 | NUR ---
BP 176/108. Given PRN [place] at this time.
[2019-04-21] VITALS (7 sets, daily range): BP systolic 135–177; BP diastolic 79–109; PULSE 52–118; TEMP 97.1–98.4
--- NOTE | 2019-04-21 01:18 | NUR ---
Patient's BP 177/103. Called Devi. New order received to give 10 mg IV Appresoline, one time order now. Given at this time.
--- NOTE | 2019-04-21 05:47 | NUR ---
Patient was on CPAP during the night with oxygen bleeding in. Received PRN [place] when requested for pain. Received nebulizer treatments per orders and as requested. HR increased greater than 120 when ambulating to bathroom, but decreased back to baseline at rest. BP elevated, and received PRN [place] per orders. Denies chest pain and discomfort. Voices no questions, needs, or concerns at this time. Resting in bed with call light within reach.
[2019-04-21 06:07] LABS: BASO % 0.1 % (0.0-2.0); GRAN # 8.3 (1.4-6.5); GRAN % 77.4 % (42.2-75.2); HEMOGLOBIN 10.5 g/dl (13.5-18.0); LYMPH # 0.9 (1.2-3.4); MEAN CELL VOLUME 108 fl (80.0-100.0); MEAN CORPUSCULAR HEMOGLOBIN 34 pg (27.0-31.0); MEAN CORPUSCULAR HGB CONC 31 g/dl (33.0-37.0); MEAN PLATELET VOLUME 10.6 fl (7.4-10.4); MONO # 1.3 (0.1-0.6); MONO % 12.4 % (1.7-9.3); PLATELET COUNT 276 K/mm3 (130-400); REDCELL DISTRIBUTION WIDTH-CV 16.6 % (11.5-14.5)
[2019-04-21 06:08] LABS: HEMATOCRIT 33.6 % (42.0-52.0)
[2019-04-21 06:28] LABS: CALCIUM 9.6 mg/dL (8.4-10.2); CREATININE, serum 1.02 (0.66-1.25)
--- NOTE | 2019-04-21 15:52 | NUR ---
Pt resting in bed sleeping on and off. Pt SOB at rest. Pt remains on oxygen via nasal cannula at 3L. Pt is to have BIPAP at [facility] and RT is aware. Pt rates pain 5/10 in back. Managed with PRN medication. Pt alert and oriented. Pt has call light in reach. Pt PICC remains patent and no redness or infiltration noted. Pt denies needs at this time.
--- NOTE | 2019-04-21 18:45 | NUR ---
Patient complaining of level 7 pain to back. Given PRN [place] as requested for pain.
--- NOTE | 2019-04-21 20:15 | NUR ---
Patient assessed at this time. Alert and oriented x 4, and able to make needs known. States that pain is now at a 4. PICC to LUE. Denies having SOB at rest, but reports SOB with exertion. LS coarse crackles throughout. Occasional moist ough. Respirations even and unlabored. On oxygen at 3 L/min via NC. Has BIPAP for HS. Heart rate regular rhythm, tachycardia. Telemetry in place-sinus tachycardia. Capillary refill less than 3 seconds. Non-tenting skin turgor. BSAx4. Abdomen soft and non-tender. No edema. Voices no questions, needs, or concerns at this time. Resting in bed with call light within reach.
--- NOTE | 2019-04-21 23:15 | NUR ---
Patient complaining of level 7 pain to back. Given PRN [place] as requested for pain. Voices no other questions, needs, or concerns at this time. Placed on BIPAP. Resting in bed with call light within reach.
[2019-04-22 03:38] VITALS: BP 134/80; PULSE 110; TEMP 98.8
[2019-04-22 06:00] LABS: HEMOGLOBIN 10.6 g/dl (13.5-18.0); MEAN CELL VOLUME 109 fl (80.0-100.0); MEAN CORPUSCULAR HEMOGLOBIN 34 pg (27.0-31.0); MEAN CORPUSCULAR HGB CONC 31 g/dl (33.0-37.0); MEAN PLATELET VOLUME 10.3 fl (7.4-10.4); PLATELET COUNT 283 K/mm3 (130-400); RED BLOOD COUNT 3.11 M/mm3 (4.20-5.60); REDCELL DISTRIBUTION WIDTH-CV 16.7 % (11.5-14.5)
[2019-04-22 06:07] LABS: HEMATOCRIT 33.9 % (42.0-52.0)
[2019-04-22 06:18] LABS: CALCIUM 9.5 mg/dL (8.4-10.2); CREATININE, serum 1.19 (0.66-1.25); POTASSIUM 4.1 mmol/L (3.4-5.0)
[2019-04-22 06:33] LABS: ANISOCYTOSIS 1+; BAND 3 % (0-10); LYMPHOCYTE 10 % (20.0-51.0); METAMYELOCYTE 1 % (0-0); NEUTROPHILS 75 % (42.0-75.2); NUCLEATED RED BLOOD CELL 2 (0-6); PLATELET ESTIMATE NORMAL (NORMAL)
--- NOTE | 2019-04-22 07:04 | NUR ---
Patient complained of pain to lower back around 0510, and was given PRN [place] at that time. Patient wore BIPAP most of the night, and was on oxygen at 3 L/min via NC when not wearing BIPAP. Voices no questions, needs, or concerns at this time. Resting in bed with call light within reach.
[2019-04-22 07:59] VITALS: BP 141/95; PULSE 97; TEMP 98.1
--- NOTE | 2019-04-22 10:44 | NUR ---
Pt resting in bed this am. Pt alert and oriented. Pt reports had small BM this am. Pt oxygen down to 2L oxygen via nasal cannula and saturations in mid 90's. Pt assessment completed this am. Pt's spouse at bedside. Pt PICC patent no redness or infiltration. Pt independent in the room. Pt rates chronic back pain at 6/10 and managed with PRN [place] as ordered. Pt has call light in reach.
[2019-04-22 11:48] VITALS: BP 133/94; PULSE 110; TEMP 98.4
[2019-04-22] MEDS ORDERED: PREDNISONE20 MG PO (14:58)
[2019-04-22] MEDS ORDERED: ZITHROMAX 250M250 MG PO (15:02)
--- NOTE | 2019-04-22 15:30 | NUR ---
The patient is to discharge back home with his life partner today, 04/22, with home health services for nursing home through [facility]. GAIL contacted [facility] and will fax discharge orders to them. SW presented and explained the IM form to the patient. The patient verbalized understanding, signed, and he was provided a copy. No additional needs at this time.
--- NOTE | 2019-04-22 17:00 | NUR ---
Pt given discharge instructions and education on medications, follow up appts, and PICC discharge instructions and care. Pt has all belongings and portable oxygen unit to go home with. Pt escorted out via wheelchair by aide without issue.
== END 2019-04-22 17:15 | disposition home health service (06) | DRG 191 ==
LOC: COL.ER 21:08 → MEDICAL 23:33
PROVIDERS: Emergency Medicine; Nurse Practitioner Family; Physician Assistant; Student in an Organized Health Care Education/Training Program; ADMIT Hospitalist
PROC: 5A09357 Assistance with Respiratory Ventilation, Less than 24 Consecutive Hours, Continuous Positive Airway Pressure (ICD-10-PCS; principal; 2019-04-19)
DX: J44.1 Chronic obstructive pulmonary disease with (acute) exacerbation (principal); C34.90 Malignant neoplasm of unspecified part of unspecified bronchus or lung; I42.0 Dilated cardiomyopathy; E87.2 Acidosis; J96.11 Chronic respiratory failure with hypoxia; I10 Essential (primary) hypertension; F10.10 Alcohol abuse, uncomplicated; E83.39 Other disorders of phosphorus metabolism; D53.9 Nutritional anemia, unspecified; E87.6 Hypokalemia; E83.42 Hypomagnesemia; G62.9 Polyneuropathy, unspecified; G47.33 Obstructive sleep apnea (adult) (pediatric); K21.9 Gastro-esophageal reflux disease without esophagitis; Z87.01 Personal history of pneumonia (recurrent); Z99.81 Dependence on supplemental oxygen; Z79.82 Long term (current) use of aspirin; Z87.891 Personal history of nicotine dependence; Z88.8 Allergy status to other drugs, medicaments and biological substances; Z88.1 Allergy status to other antibiotic agents; R73.9 Hyperglycemia, unspecified; T38.0X5A Adverse effect of glucocorticoids and synthetic analogues, initial encounter
CPT/HCPCS: 99222-AI; 99232-AI; 99233-AI; J0360; J0692; J1650; J1940; J2920; J2930; J3480; J7030; J7050; J7512

== ENCOUNTER 2019-05-02 06:36 | Emergency (ER) | payer MEDICARE, OTHER, MEDICAID ==
[~2019-05-02] VITALS: Ht 167.6 cm; Wt 86.8 kg
[~2019-05-02 06:36] MED LIST changes: +ZITHROMAX 250M250 MG PO
[2019-05-02 06:37] VITALS: TEMP 98
--- NOTE | 2019-05-02 10:00 | NUR ---
patient is located in the emergency department. With sterile technique left upper arm PICC dressing change done with insertion site cleansed with ChloraPrep 1, chlorhexidine impregnated disc applied, skin prep, StatLock, and Tegaderm applied. Changed and flushed with 10 mL normal saline with good blood return noted. No signs or symptoms of IV complications noted. No concerns voiced. Patient to return next week to the express unit for PICC cares. Patient voiced understanding of instructions.
[2019-05-02 10:50] LABS: HEMATOCRIT 38.8 % (42.0-52.0); HEMOGLOBIN 12.8 g/dl (13.5-18.0); MEAN CELL VOLUME 103 fl (80.0-100.0); MEAN CORPUSCULAR HEMOGLOBIN 34 pg (27.0-31.0); MEAN CORPUSCULAR HGB CONC 33 g/dl (33.0-37.0); MEAN PLATELET VOLUME 11.1 fl (7.4-10.4); PLATELET COUNT 229 K/mm3 (130-400); RED BLOOD COUNT 3.76 M/mm3 (4.20-5.60); REDCELL DISTRIBUTION WIDTH-CV 14.6 % (11.5-14.5)
[2019-05-02 11:10] VITALS: BP 121/96; PULSE 103
[2019-05-02 12:09] LABS: LYMPHOCYTE 5 % (20.0-51.0); NEUTROPHILS 90 % (42.0-75.2)
[2019-05-02 12:10] LABS: PLATELET ESTIMATE NORMAL (NORMAL); TOXIC GRANULATION PRESENT
[2019-05-02 12:11] LABS: ANISOCYTOSIS 1+; STOMATOCYTE 1+
[2019-05-02 12:12] LABS: MICROCYTOSIS 1+
== END 2019-05-02 11:11 | disposition home or self-care (01) ==
LOC: COL.ER 06:36
PROVIDERS: Student in an Organized Health Care Education/Training Program
DX: K59.00 Constipation, unspecified (principal); I10 Essential (primary) hypertension; J44.9 Chronic obstructive pulmonary disease, unspecified; K21.9 Gastro-esophageal reflux disease without esophagitis; Z79.82 Long term (current) use of aspirin; Z85.118 Personal history of other malignant neoplasm of bronchus and lung

== ENCOUNTER 2019-05-23 09:00 | Outpatient (RCR) | payer MEDICARE, OTHER, MEDICAID ==
--- NOTE | 2019-04-26 09:00 | NUR ---
Here for cares. with sterile technique left upper arm PICC dressing change done with insertion site cleansed with chloraprep x 1, chlorhexidine impregnated disk applied, skin prep, stat lock, and tegaderm applied. no signs or symptoms of IV complications noted. no concerns voiced. re-wrapped with miguel to return next week for cares. voiced understanding of instructions.
[2019-04-26 09:20] VITALS: BP 120/83; PULSE 96; TEMP 98.1
[2019-04-26 09:41] LABS: HEMOGLOBIN 11.6 g/dl (13.5-18.0); MEAN CELL VOLUME 105 fl (80.0-100.0); MEAN CORPUSCULAR HEMOGLOBIN 34 pg (27.0-31.0); MEAN CORPUSCULAR HGB CONC 33 g/dl (33.0-37.0); MEAN PLATELET VOLUME 10.6 fl (7.4-10.4); PLATELET COUNT 328 K/mm3 (130-400); RED BLOOD COUNT 3.37 M/mm3 (4.20-5.60); REDCELL DISTRIBUTION WIDTH-CV 15.9 % (11.5-14.5)
[2019-04-26 09:56] LABS: HEMATOCRIT 35.4 % (42.0-52.0)
[2019-04-26 10:39] LABS: BAND 2 % (0-10); EOSINOPHIL 1 % (0-4); LYMPHOCYTE 11 % (20.0-51.0); NEUTROPHILS 74 % (42.0-75.2); OVALOCYTES 1+
[2019-04-26 10:41] LABS: PLATELET ESTIMATE NORMAL (NORMAL)
[2019-05-09 09:27] LABS: HEMOGLOBIN 11.4 g/dl (13.5-18.0); MEAN CELL VOLUME 101 fl (80.0-100.0); MEAN CORPUSCULAR HEMOGLOBIN 34 pg (27.0-31.0); MEAN CORPUSCULAR HGB CONC 34 g/dl (33.0-37.0); MEAN PLATELET VOLUME 11.6 fl (7.4-10.4); PLATELET COUNT 154 K/mm3 (130-400); RED BLOOD COUNT 3.36 M/mm3 (4.20-5.60)
[2019-05-09 09:32] LABS: HEMATOCRIT 33.8 % (42.0-52.0)
[2019-05-09 09:39] LABS: ALBUMIN 4.2 gm/dL (3.5-5.0); BILIRUBIN,TOTAL 0.9 mg/dL (0.0-1.0); CALCIUM 9.1 mg/dL (8.4-10.2); CREATININE, serum 1.22 (0.66-1.25); TOTAL PROTEIN 6.8 gm/dL (6.4-8.2)
[2019-05-09 09:52] LABS: POTASSIUM 2.9 mmol/L (3.4-5.0)
[2019-05-09 11:27] LABS: NEUTROPHILS 76 % (42.0-75.2); PLATELET ESTIMATE NORMAL (NORMAL)
[2019-05-09 11:33] LABS: LYMPHOCYTE 20 % (20.0-51.0); STOMATOCYTE 1+
[2019-05-09 11:34] LABS: TOXIC GRANULATION PRESENT
[2019-05-09 13:58] VITALS: BP 120/80; PULSE 101; TEMP 98.1
[2019-05-17 09:00] VITALS: BP 121/87; PULSE 119; TEMP 97.8
--- NOTE | 2019-05-17 09:00 | NUR ---
Here for cares. with sterile technique left upper arm PICC dressing change done with insertion site cleansed with chloraprep x 1, chlorhexidine impregnated disk applied, skin prep, stat lock, and tegaderm applied. no signs or symptoms of IV complications noted. no concerns voiced. wrapped with miguel to protect catheter. to return next week for cares. voiced understanding of instructions.
[2019-05-17 09:05] LABS: HEMOGLOBIN 12.1 g/dl (13.5-18.0); MEAN CELL VOLUME 99 fl (80.0-100.0); MEAN CORPUSCULAR HEMOGLOBIN 33 pg (27.0-31.0); MEAN CORPUSCULAR HGB CONC 34 g/dl (33.0-37.0); MEAN PLATELET VOLUME 10.1 fl (7.4-10.4); PLATELET COUNT 341 K/mm3 (130-400); RED BLOOD COUNT 3.64 M/mm3 (4.20-5.60); REDCELL DISTRIBUTION WIDTH-CV 13.7 % (11.5-14.5)
[2019-05-17 10:11] LABS: BAND 6 % (0-10); LYMPHOCYTE 17 % (20.0-51.0); NEUTROPHILS 68 % (42.0-75.2); PLATELET ESTIMATE NORMAL (NORMAL)
[~2019-05-23] VITALS: Ht 167.6 cm; Wt 79.8 kg
--- NOTE | 2019-05-23 08:45 | NUR ---
here for cares. With sterile technique left upper arm PICC dressing change done with insertion site cleansed with ChloraPrep 1, chlorhexidine impregnated disc applied, skin prep, StatLock, and Tegaderm applied. No signs or symptoms of IV complications noted. No concerns voiced. Patient to return next week for cares. Patient voiced understanding of instructions.
[2019-05-23 08:52] VITALS: BP 124/99; PULSE 120; TEMP 97.4
[2019-05-23 09:19] LABS: HEMATOCRIT 40.5 % (42.0-52.0); HEMOGLOBIN 13.2 g/dl (13.5-18.0); MEAN CELL VOLUME 101 fl (80.0-100.0); MEAN CORPUSCULAR HEMOGLOBIN 33 pg (27.0-31.0); MEAN CORPUSCULAR HGB CONC 33 g/dl (33.0-37.0); MEAN PLATELET VOLUME 10.1 fl (7.4-10.4); PLATELET COUNT 421 K/mm3 (130-400); REDCELL DISTRIBUTION WIDTH-CV 14.4 % (11.5-14.5)
[2019-05-23 10:02] LABS: LYMPHOCYTE 34 % (20.0-51.0); NEUTROPHILS 56 % (42.0-75.2); PLATELET ESTIMATE NORMAL (NORMAL)
== END 2019-05-24 18:00 | disposition home or self-care (01) ==
LOC: EUO 09:00
PROVIDERS: Internal Medicine Medical Oncology
DX: C34.01 Malignant neoplasm of right main bronchus (principal)

== ENCOUNTER → 2019-07-13 | Outpatient (CLI) | payer MEDICARE, OTHER, MEDICAID ==
[~2019-07-13] MED LIST changes: +ABRAXANE100 MG IV; +CINVANTI130 MG/18 IV; +COZAAR 50MG50 MG/TAB PO; +DEXAMETHASON10 MG/ML IV; +NOVAPLUS CAR10 MG/ML IV; +SUSTOL10 MG/0.4 SQ
== END ==
LOC: MHCPAIN 12:34
DX: M54.12 Radiculopathy, cervical region (principal); M47.812 Spondylosis without myelopathy or radiculopathy, cervical region; J44.9 Chronic obstructive pulmonary disease, unspecified; Z85.118 Personal history of other malignant neoplasm of bronchus and lung
CPT/HCPCS: G0463

== ENCOUNTER → 2019-10-12 | Outpatient (CLI) | payer MEDICARE, OTHER, MEDICAID | LOC: MHCPAIN 12:41 | DX: M54.5 Low back pain (principal); M54.2 Cervicalgia; M54.12 Radiculopathy, cervical region | CPT/HCPCS: G0463 ==

== ENCOUNTER 2019-11-10 23:29 | Emergency (ER) | payer MEDICARE, OTHER, MEDICAID ==
[~2019-11-10] VITALS: Ht 167.6 cm; Wt 77.7 kg
[2019-11-11 00:35] LABS: BASO % 0.1 % (0.0-2.0); EOS % 0.3 % (0-4.0); GRAN # 7.6 (1.4-6.5); GRAN % 83.2 % (42.2-75.2); LYMPH # 0.6 (1.2-3.4); LYMPH % 6.8 % (20.0-51.0); MEAN CELL VOLUME 101 fl (80.0-100.0); MEAN CORPUSCULAR HGB CONC 31 g/dl (33.0-37.0); MONO # 0.8 (0.1-0.6); MONO % 9.2 % (1.7-9.3); PLATELET COUNT 349 K/mm3 (130-400); RED BLOOD COUNT 3.08 M/mm3 (4.20-5.60); REDCELL DISTRIBUTION WIDTH-CV 17.1 % (11.5-14.5)
[2019-11-11 00:42] LABS: ALANINE AMINOTRANSFERASE 7 U/L (4-49); ALKALINE PHOSPHATASE 64 U/L (50-136); ANION GAP 8 mmol/L (7-16); AST,SGOT 14 U/L (15-37); BILIRUBIN,TOTAL 0.5 mg/dL (0.0-1.0); BLOOD UREA NITROGEN 12 mg/dL (9-20); CALCIUM 9.1 mg/dL (8.4-10.2); CARBON DIOXIDE 25 mmol/L (22-30); CHLORIDE 102 mmol/L (98-107); CREATININE, serum 0.97 (0.66-1.25); GLUCOSE 126 mg/dL (74-106); POTASSIUM 3.6 mmol/L (3.4-5.0); SODIUM 135 mmol/L (137-145); TOTAL PROTEIN 6.8 gm/dL (6.4-8.2)
[2019-11-11 00:46] LABS: HEMATOCRIT 31.1 % (42.0-52.0); HEMOGLOBIN 9.6 g/dl (13.5-18.0); INR 1.2 (0.8-3.0); MEAN CORPUSCULAR HEMOGLOBIN 31 pg (27.0-31.0); PROTHROMBIN TIME 13.4 SECONDS (9.7-12.8)
[2019-11-11 01:09] LABS: TROPONIN-I < 0.012 ng/mL (0.000-0.035)
[2019-11-11 02:45] VITALS: TEMP 99
[2019-11-11 03:02] VITALS: BP 108/81; PULSE 104
[2019-11-11 03:10] LABS: COLLECTION METHOD CLEAN CATCH
[2019-11-11 03:15] LABS: PH 6 (5-8); SQUAMOUS EPITHELIAL None Seen /hpf; URINE APPEARANCE Clear; URINE BACTERIA None Seen /hpf; URINE BILIRUBIN Negative (NEGATIVE); URINE BLOOD Negative (NEGATIVE); URINE COLOR Yellow; URINE GLUCOSE Negative (NEGATIVE); URINE KETONE Negative (NEGATIVE); URINE LEUKOCYTE ESTERASE Negative (NEGATIVE); URINE NITRATE Negative (NEGATIVE); URINE PROTEIN(semi-quant) Negative (NEGATIVE); URINE RBC 0-2 /hpf; URINE UROBILINOGEN Negative (NEGATIVE)
== END 2019-11-11 03:00 | disposition short-term general hospital (02) ==
LOC: COL.ER 23:29
PROVIDERS: Emergency Medicine
DX: A41.9 Sepsis, unspecified organism (principal); C34.90 Malignant neoplasm of unspecified part of unspecified bronchus or lung; I10 Essential (primary) hypertension; J44.9 Chronic obstructive pulmonary disease, unspecified; J96.90 Respiratory failure, unspecified, unspecified whether with hypoxia or hypercapnia; Z79.51 Long term (current) use of inhaled steroids; Z79.82 Long term (current) use of aspirin
CPT/HCPCS: J2185; J3370; J7030; J7050

== ENCOUNTER 2019-11-22 11:00 | Outpatient (RCR) | payer MEDICARE, OTHER, MEDICAID ==
--- NOTE | 2019-08-30 10:45 | NUR ---
here for cares. With sterile technique left upper arm PICC dressing change done with insertion site cleansed with ChloraPrep 1, chlorhexidine impregnated disc applied, skin prep, StatLock, and Tegaderm applied. No signs or symptoms of IV complications noted. No concerns voiced. Patient will return next week for cares. Patient voiced understanding of instructions.
[2019-08-30 10:50] VITALS: BP 134/91; PULSE 129; TEMP 98.5
[2019-08-30 11:15] LABS: MEAN CELL VOLUME 95 fl (80.0-100.0); MEAN CORPUSCULAR HGB CONC 33 g/dl (33.0-37.0); MEAN PLATELET VOLUME 10.9 fl (7.4-10.4); PLATELET COUNT 238 K/mm3 (130-400); RED BLOOD COUNT 3.11 M/mm3 (4.20-5.60); REDCELL DISTRIBUTION WIDTH-CV 15.2 % (11.5-14.5)
[2019-08-30 11:16] LABS: HEMATOCRIT 29.6 % (42.0-52.0); HEMOGLOBIN 9.8 g/dl (13.5-18.0); MEAN CORPUSCULAR HEMOGLOBIN 32 pg (27.0-31.0)
[2019-08-30 11:55] LABS: BAND 5 % (0-10); LYMPHOCYTE 13 % (20.0-51.0); METAMYELOCYTE 1 % (0-0); NEUTROPHILS 79 % (42.0-75.2); OVALOCYTES 2+; PLATELET ESTIMATE NORMAL (NORMAL)
[2019-09-06 10:53] VITALS: BP 114/79; PULSE 121; TEMP 98
--- NOTE | 2019-09-06 11:00 | NUR ---
Here for cares. PICC intact left upper arm with sterile dressing change done with insertion site cleansed with chloraprep x 1, chlorhexidine impregnated disk applied, skin prep, stat lock, and tegaderm applied. no signs or symptoms of IV complications noted. no concerns voiced. wrapped with mgiuel to protect catheter. to return next week for cares. voiced understanding of instructions.
[2019-09-06 11:19] LABS: ALBUMIN 4.4 gm/dL (3.5-5.0); BILIRUBIN,TOTAL 0.3 mg/dL (0.0-1.0); CALCIUM 9.5 mg/dL (8.4-10.2); CREATININE, serum 1.16 (0.66-1.25); POTASSIUM 3.7 mmol/L (3.4-5.0); TOTAL PROTEIN 7.1 gm/dL (6.4-8.2)
[2019-09-06 11:20] LABS: MEAN CELL VOLUME 98 fl (80.0-100.0); MEAN CORPUSCULAR HEMOGLOBIN 31 pg (27.0-31.0); MEAN CORPUSCULAR HGB CONC 32 g/dl (33.0-37.0); MEAN PLATELET VOLUME 10.1 fl (7.4-10.4); PLATELET COUNT 203 K/mm3 (130-400); REDCELL DISTRIBUTION WIDTH-CV 16.5 % (11.5-14.5)
[2019-09-06 11:22] LABS: HEMATOCRIT 31.2 % (42.0-52.0)
[2019-09-06 12:48] LABS: BAND 7 % (0-10); LYMPHOCYTE 27 % (20.0-51.0); NEUTROPHILS 57 % (42.0-75.2); NUCLEATED RED BLOOD CELL 1 (0-6); OVALOCYTES 2+; PLATELET ESTIMATE NORMAL (NORMAL); SCHISTOCYTES 1+
--- NOTE | 2019-09-14 11:00 | NUR ---
here for cares. With sterile technique left upper arm PICC dressing change done with insertion site cleansed with ChloraPrep 1, chlorhexidine impregnated disc applied, skin prep, StatLock, and Tegaderm applied. No signs or symptoms of IV complications noted. No concerns voiced. Arm wrapped with Wily to protect catheter. Will return next week for cares. Voiced understanding of instructions.
[2019-09-14 11:26] LABS: HEMOGLOBIN 10.4 g/dl (13.5-18.0); MEAN CELL VOLUME 96 fl (80.0-100.0); MEAN CORPUSCULAR HEMOGLOBIN 31 pg (27.0-31.0); MEAN CORPUSCULAR HGB CONC 32 g/dl (33.0-37.0); MEAN PLATELET VOLUME 10.5 fl (7.4-10.4); PLATELET COUNT 353 K/mm3 (130-400); RED BLOOD COUNT 3.33 M/mm3 (4.20-5.60); REDCELL DISTRIBUTION WIDTH-CV 15.6 % (11.5-14.5)
[2019-09-14 11:27] LABS: HEMATOCRIT 32.1 % (42.0-52.0)
[2019-09-14 11:48] LABS: BAND 3 % (0-10); EOSINOPHIL 1 % (0-4); LYMPHOCYTE 25 % (20.0-51.0); NEUTROPHILS 62 % (42.0-75.2); OVALOCYTES 2+
[2019-09-14 11:49] LABS: PLATELET ESTIMATE NORMAL (NORMAL)
[2019-09-14 11:58] VITALS: BP 129/76; PULSE 92; TEMP 98.2
[2019-09-20 11:25] VITALS: BP 117/91; PULSE 125; TEMP 98
[2019-09-20 11:29] LABS: MEAN CELL VOLUME 97 fl (80.0-100.0); MEAN CORPUSCULAR HGB CONC 33 g/dl (33.0-37.0); MEAN PLATELET VOLUME 10.8 fl (7.4-10.4); PLATELET COUNT 223 K/mm3 (130-400); RED BLOOD COUNT 3.12 M/mm3 (4.20-5.60); REDCELL DISTRIBUTION WIDTH-CV 15.7 % (11.5-14.5)
[2019-09-20 11:40] LABS: HEMATOCRIT 30.1 % (42.0-52.0); HEMOGLOBIN 9.9 g/dl (13.5-18.0); MEAN CORPUSCULAR HEMOGLOBIN 32 pg (27.0-31.0)
--- NOTE | 2019-09-20 11:40 | NUR ---
here for cares. With sterile technique left upper arm PICC dressing changes done with insertion site cleansed with ChloraPrep 1, chlorhexidine impregnated disc applied, skin prep, StatLock, nothing by mouth applied. No signs or symptoms of IV complications noted. Arm wrapped with Wily to protect catheter. Patient to return next week for cares. Patient voiced understanding of instructions.
[2019-09-20 12:09] LABS: BAND 2 % (0-10); LYMPHOCYTE 33 % (20.0-51.0); NEUTROPHILS 64 % (42.0-75.2)
[2019-09-20 12:10] LABS: OVALOCYTES 2+; PLATELET ESTIMATE NORMAL (NORMAL)
[2019-09-27 11:10] LABS: MEAN CELL VOLUME 96 fl (80.0-100.0); MEAN CORPUSCULAR HGB CONC 33 g/dl (33.0-37.0); MEAN PLATELET VOLUME 10.2 fl (7.4-10.4); PLATELET COUNT 207 K/mm3 (130-400); RED BLOOD COUNT 2.85 M/mm3 (4.20-5.60); REDCELL DISTRIBUTION WIDTH-CV 15.9 % (11.5-14.5)
[2019-09-27 11:12] LABS: HEMATOCRIT 27.4 % (42.0-52.0); HEMOGLOBIN 8.9 g/dl (13.5-18.0); MEAN CORPUSCULAR HEMOGLOBIN 31 pg (27.0-31.0)
[2019-09-27 11:21] VITALS: BP 136/83; PULSE 117; TEMP 98.2
[2019-09-27 11:48] LABS: BAND 4 % (0-10); LYMPHOCYTE 34 % (20.0-51.0); NEUTROPHILS 57 % (42.0-75.2); OVALOCYTES 1+; PLATELET ESTIMATE NORMAL (NORMAL)
[2019-09-27 22:37] LABS: ALBUMIN 4.3 gm/dL (3.5-5.0); BILIRUBIN,TOTAL 0.4 mg/dL (0.0-1.0); CALCIUM 9.6 mg/dL (8.4-10.2); CREATININE, serum 1.27 (0.66-1.25); POTASSIUM 4.5 mmol/L (3.4-5.0)
[2019-10-04 11:17] LABS: MEAN CELL VOLUME 100 fl (80.0-100.0); MEAN CORPUSCULAR HGB CONC 31 g/dl (33.0-37.0); MEAN PLATELET VOLUME 10.2 fl (7.4-10.4); PLATELET COUNT 240 K/mm3 (130-400); RED BLOOD COUNT 3.11 M/mm3 (4.20-5.60); REDCELL DISTRIBUTION WIDTH-CV 18.3 % (11.5-14.5)
[2019-10-04 11:18] LABS: HEMATOCRIT 31.2 % (42.0-52.0); HEMOGLOBIN 9.8 g/dl (13.5-18.0); MEAN CORPUSCULAR HEMOGLOBIN 32 pg (27.0-31.0)
[2019-10-04 13:19] LABS: BAND 1 % (0-10); LYMPHOCYTE 27 % (20.0-51.0); METAMYELOCYTE 1 % (0-0); NEUTROPHILS 54 % (42.0-75.2)
[2019-10-04 13:20] LABS: PLATELET ESTIMATE NORMAL (NORMAL)
[2019-10-04 13:25] LABS: ANISOCYTOSIS 1+
--- NOTE | 2019-10-12 10:50 | NUR ---
here for cares. With sterile technique left upper arm PICC dressing change done with insertion site cleansed with ChloraPrep 1, chlorhexidine impregnated disc applied, skin prep, StatLock, and Tegaderm applied. No signs or symptoms of IV complications noted. No concerns voiced. Arm wrapped with Wily to protect catheter. Patient return next week for cares. Patient voiced understanding of instructions.
[2019-10-12 11:03] VITALS: BP 111/76; PULSE 112; TEMP 98.3
[2019-10-12 11:11] LABS: MEAN CELL VOLUME 98 fl (80.0-100.0); MEAN CORPUSCULAR HGB CONC 32 g/dl (33.0-37.0); MEAN PLATELET VOLUME 10.6 fl (7.4-10.4); PLATELET COUNT 306 K/mm3 (130-400); RED BLOOD COUNT 3.12 M/mm3 (4.20-5.60); REDCELL DISTRIBUTION WIDTH-CV 16.5 % (11.5-14.5)
[2019-10-12 11:12] LABS: HEMATOCRIT 30.6 % (42.0-52.0); HEMOGLOBIN 9.9 g/dl (13.5-18.0); MEAN CORPUSCULAR HEMOGLOBIN 32 pg (27.0-31.0)
[2019-10-12 13:02] LABS: BAND 1 % (0-10); LYMPHOCYTE 19 % (20.0-51.0); NEUTROPHILS 73 % (42.0-75.2); OVALOCYTES 1+; PLATELET ESTIMATE NORMAL (NORMAL)
[2019-10-18 11:29] LABS: MEAN CELL VOLUME 99 fl (80.0-100.0); MEAN CORPUSCULAR HGB CONC 32 g/dl (33.0-37.0); MEAN PLATELET VOLUME 10.7 fl (7.4-10.4); PLATELET COUNT 184 K/mm3 (130-400); RED BLOOD COUNT 2.89 M/mm3 (4.20-5.60); REDCELL DISTRIBUTION WIDTH-CV 16.5 % (11.5-14.5)
[2019-10-18 11:48] LABS: HEMATOCRIT 28.7 % (42.0-52.0); HEMOGLOBIN 9.1 g/dl (13.5-18.0); MEAN CORPUSCULAR HEMOGLOBIN 31 pg (27.0-31.0)
[2019-10-18 12:40] LABS: ANISOCYTOSIS 1+; BAND 2 % (0-10); LYMPHOCYTE 30 % (20.0-51.0); NEUTROPHILS 63 % (42.0-75.2); OVALOCYTES 1+; PLATELET ESTIMATE NORMAL (NORMAL); TEAR DROP CELLS 1+
[2019-10-18 12:46] VITALS: BP 152/97; PULSE 123; TEMP 98.4
[2019-10-25 10:50] VITALS: BP 140/79; PULSE 98; TEMP 98
[2019-10-25 10:50] LABS: MEAN CELL VOLUME 99 fl (80.0-100.0); MEAN CORPUSCULAR HGB CONC 32 g/dl (33.0-37.0); MEAN PLATELET VOLUME 10.3 fl (7.4-10.4); PLATELET COUNT 176 K/mm3 (130-400); RED BLOOD COUNT 2.85 M/mm3 (4.20-5.60); REDCELL DISTRIBUTION WIDTH-CV 15.9 % (11.5-14.5)
[2019-10-25 10:59] LABS: HEMATOCRIT 28.1 % (42.0-52.0); HEMOGLOBIN 9.1 g/dl (13.5-18.0); MEAN CORPUSCULAR HEMOGLOBIN 32 pg (27.0-31.0)
[2019-10-25 11:08] LABS: ALBUMIN 4.1 gm/dL (3.5-5.0); BILIRUBIN,TOTAL 0.6 mg/dL (0.0-1.0); CALCIUM 9.3 mg/dL (8.4-10.2); CREATININE, serum 1.25 (0.66-1.25); POTASSIUM 3.7 mmol/L (3.4-5.0); TOTAL PROTEIN 6.9 gm/dL (6.4-8.2)
[2019-10-25 11:50] LABS: BAND 6 % (0-10); LYMPHOCYTE 27 % (20.0-51.0); NEUTROPHILS 60 % (42.0-75.2); NUCLEATED RED BLOOD CELL 2 (0-6); OVALOCYTES 1+; TEAR DROP CELLS 1+
[2019-10-25 11:51] LABS: PLATELET ESTIMATE NORMAL (NORMAL)
--- NOTE | 2019-11-01 10:50 | NUR ---
here for cares. With sterile technique left upper arm PICC dressing change done with insertion site cleansed with ChloraPrep 1, chlorhexidine impregnated disc applied, skin prep, StatLock, and Tegaderm applied. No signs or symptoms of IV complications noted. No concerns voiced. Patient to continue with cares in the express unit. Patient voiced understanding of instructions.
[2019-11-01 11:24] LABS: MEAN CELL VOLUME 99 fl (80.0-100.0); MEAN CORPUSCULAR HGB CONC 32 g/dl (33.0-37.0); MEAN PLATELET VOLUME 10.7 fl (7.4-10.4); PLATELET COUNT 189 K/mm3 (130-400); RED BLOOD COUNT 2.96 M/mm3 (4.20-5.60); REDCELL DISTRIBUTION WIDTH-CV 16.9 % (11.5-14.5)
[2019-11-01 11:27] VITALS: BP 132/99; PULSE 84; TEMP 98.7
[2019-11-01 11:31] LABS: HEMATOCRIT 29.4 % (42.0-52.0); HEMOGLOBIN 9.5 g/dl (13.5-18.0); MEAN CORPUSCULAR HEMOGLOBIN 32 pg (27.0-31.0)
[2019-11-01 12:26] LABS: BAND 1 % (0-10); LYMPHOCYTE 26 % (20.0-51.0); NEUTROPHILS 63 % (42.0-75.2)
[2019-11-01 12:27] LABS: ANISOCYTOSIS 1+; PLATELET ESTIMATE NORMAL (NORMAL)
--- NOTE | 2019-11-08 10:10 | NUR ---
Here for cares. with sterile technique left upper arm PICC dressing change done with insertion site cleansed with chloraprep x 1, chlorhexidine impregnated disk applied, skin prep, stat lock, and tegaderm applied. no signs or symptoms of IV complications noted. no concerns voiced. to return for cares as scheduled. voiced understanding of instructions.
[2019-11-08 10:19] VITALS: BP 142/106; PULSE 105; TEMP 97.8
[2019-11-08 10:29] LABS: MEAN CELL VOLUME 102 fl (80.0-100.0); MEAN CORPUSCULAR HGB CONC 31 g/dl (33.0-37.0); MEAN PLATELET VOLUME 10.1 fl (7.4-10.4); PLATELET COUNT 342 K/mm3 (130-400); RED BLOOD COUNT 3.06 M/mm3 (4.20-5.60); REDCELL DISTRIBUTION WIDTH-CV 18.1 % (11.5-14.5)
[2019-11-08 10:31] LABS: HEMATOCRIT 31.2 % (42.0-52.0); HEMOGLOBIN 9.7 g/dl (13.5-18.0); MEAN CORPUSCULAR HEMOGLOBIN 32 pg (27.0-31.0)
[2019-11-08 10:58] LABS: BAND 3 % (0-10); LYMPHOCYTE 32 % (20.0-51.0); MYELOCYTE 1 % (0-0); NEUTROPHILS 50 % (42.0-75.2); NUCLEATED RED BLOOD CELL 1 (0-6)
[2019-11-08 11:03] LABS: ANISOCYTOSIS 1+; HYPOCHROMIA 1+; OVALOCYTES 1+; PLATELET ESTIMATE NORMAL (NORMAL); SCHISTOCYTES 1+
--- NOTE | 2019-11-14 11:47 | NUR ---
PT STATED HE JUST GOT OUT OF THE HOSPITAL. WAS SENT TO TO HAVE A STENT PLACED IN HIS LUNG. HE WAS SENT HOME AND HAD TO RETURN THAT SAME EVENING. PT STATED HE HAS BEEN TESTED FOR COVID RECENTLY AND WAS NEGATIVE.
--- NOTE | 2019-11-15 10:30 | NUR ---
Here for cares. with sterile technique left upper arm PICC dressing change done with insertion site cleansed with chloraprep x 1, chlorhexidine impregnated disk applied, skin prep, stat lock, and tegaderm applied. no signs or symptoms of IV complications noted. no concerns voiced. to continue with cares in EU. Voiced understanding of instructions.
[2019-11-15 10:43] VITALS: BP 112/90; PULSE 124; TEMP 98.1
[2019-11-15 10:56] LABS: MEAN CELL VOLUME 99 fl (80.0-100.0); MEAN CORPUSCULAR HEMOGLOBIN 32 pg (27.0-31.0); MEAN CORPUSCULAR HGB CONC 32 g/dl (33.0-37.0); MEAN PLATELET VOLUME 9.3 fl (7.4-10.4); PLATELET COUNT 352 K/mm3 (130-400); RED BLOOD COUNT 3.48 M/mm3 (4.20-5.60); REDCELL DISTRIBUTION WIDTH-CV 16.5 % (11.5-14.5)
[2019-11-15 10:58] LABS: HEMATOCRIT 34.4 % (42.0-52.0)
[2019-11-15 11:07] LABS: ALBUMIN 4.2 gm/dL (3.5-5.0); BILIRUBIN,TOTAL 0.4 mg/dL (0.0-1.0); CALCIUM 9.9 mg/dL (8.4-10.2); CREATININE, serum 1.22 (0.66-1.25); TOTAL PROTEIN 7.3 gm/dL (6.4-8.2)
[2019-11-15 12:00] LABS: BAND 3 % (0-10); LYMPHOCYTE 17 % (20.0-51.0); NEUTROPHILS 71 % (42.0-75.2); PLATELET ESTIMATE NORMAL (NORMAL)
[2019-11-15 12:01] LABS: HYPOCHROMIA 1+
[2019-11-15 12:05] LABS: ANISOCYTOSIS 1+
[2019-11-15 12:08] LABS: SCHISTOCYTES 1+
[~2019-11-22] VITALS: Ht 167.6 cm; Wt 78.1 kg
[2019-11-22 10:30] VITALS: BP 126/91; PULSE 109; TEMP 97.7
[2019-11-22 11:16] LABS: HEMOGLOBIN 10.9 g/dl (13.5-18.0); MEAN CELL VOLUME 103 fl (80.0-100.0); MEAN CORPUSCULAR HEMOGLOBIN 32 pg (27.0-31.0); MEAN CORPUSCULAR HGB CONC 31 g/dl (33.0-37.0); PLATELET COUNT 349 K/mm3 (130-400); RED BLOOD COUNT 3.42 M/mm3 (4.20-5.60); REDCELL DISTRIBUTION WIDTH-CV 18.5 % (11.5-14.5)
[2019-11-22 11:24] LABS: BAND 5 % (0-10); LYMPHOCYTE 18 % (20.0-51.0); METAMYELOCYTE 2 % (0-0); NEUTROPHILS 67 % (42.0-75.2); OVALOCYTES 2+; PLATELET ESTIMATE NORMAL (NORMAL); SCHISTOCYTES 1+
[2019-11-22 11:30] LABS: HEMATOCRIT 35.3 % (42.0-52.0)
== END 2019-11-28 | disposition home or self-care (01) ==
LOC: EUO
PROVIDERS: Internal Medicine; Internal Medicine Medical Oncology
DX: C34.01 Malignant neoplasm of right main bronchus (principal); M54.9 Dorsalgia, unspecified; C78.01 Secondary malignant neoplasm of right lung; C78.02 Secondary malignant neoplasm of left lung; Z95.9 Presence of cardiac and vascular implant and graft, unspecified

== ENCOUNTER → 2020-01-17 | Outpatient (CLI) | payer MEDICARE, OTHER, MEDICAID | LOC: MHCPAIN 10:35 | DX: M47.817 Spondylosis without myelopathy or radiculopathy, lumbosacral region (principal); M50.90 Cervical disc disorder, unspecified, unspecified cervical region; M54.12 Radiculopathy, cervical region; M53.3 Sacrococcygeal disorders, not elsewhere classified; G89.29 Other chronic pain | CPT/HCPCS: G0463 ==

== ENCOUNTER 2020-02-21 11:00 | Outpatient (RCR) | payer OTHER ==
[2019-11-29 11:18] LABS: MEAN CELL VOLUME 101 fl (80.0-100.0); MEAN CORPUSCULAR HEMOGLOBIN 31 pg (27.0-31.0); MEAN CORPUSCULAR HGB CONC 31 g/dl (33.0-37.0); MEAN PLATELET VOLUME 11.6 fl (7.4-10.4); PLATELET COUNT 235 K/mm3 (130-400); RED BLOOD COUNT 3.53 M/mm3 (4.20-5.60); REDCELL DISTRIBUTION WIDTH-CV 16.7 % (11.5-14.5)
[2019-11-29 11:27] VITALS: BP 136/92; PULSE 117; TEMP 98.3
[2019-11-29 11:35] LABS: HEMATOCRIT 35.5 % (42.0-52.0)
[2019-11-29 12:15] LABS: BAND 8 % (0-10); EOSINOPHIL 1 % (0-4); LYMPHOCYTE 5 % (20.0-51.0); NEUTROPHILS 83 % (42.0-75.2)
[2019-11-29 12:16] LABS: ANISOCYTOSIS 1+; HYPOCHROMIA 1+; OVALOCYTES 1+; PLATELET ESTIMATE NORMAL (NORMAL)
[2019-12-06 11:18] VITALS: BP 132/99; PULSE 117; TEMP 98.2
[2019-12-06 11:33] LABS: HEMOGLOBIN 11.2 g/dl (13.5-18.0); MEAN CELL VOLUME 99 fl (80.0-100.0); MEAN CORPUSCULAR HEMOGLOBIN 31 pg (27.0-31.0); MEAN CORPUSCULAR HGB CONC 31 g/dl (33.0-37.0); MEAN PLATELET VOLUME 11.2 fl (7.4-10.4); PLATELET COUNT 233 K/mm3 (130-400); RED BLOOD COUNT 3.62 M/mm3 (4.20-5.60); REDCELL DISTRIBUTION WIDTH-CV 16.5 % (11.5-14.5)
[2019-12-06 11:57] LABS: LYMPHOCYTE 62 % (20.0-51.0); METAMYELOCYTE 1 % (0-0); NEUTROPHILS 8 % (42.0-75.2)
[2019-12-06 11:58] LABS: PLATELET ESTIMATE NORMAL (NORMAL)
[2019-12-06 11:59] LABS: ANISOCYTOSIS 1+; HYPOCHROMIA 2+; OVALOCYTES 1+
[2019-12-06 12:00] LABS: STOMATOCYTE 1+
[2019-12-06 12:01] LABS: TEAR DROP CELLS 1+
[2019-12-06 12:02] LABS: SCHISTOCYTES 1+
[2019-12-07 07:47] LABS: PATHOLOGY DIFF REVIEW OK
[2019-12-13 10:43] VITALS: BP 115/80; PULSE 133; TEMP 98.1
--- NOTE | 2019-12-13 10:45 | NUR ---
here for cares. With sterile technique left upper arm PICC dressing change done with insertion site cleansed with ChloraPrep 1, chlorhexidine impregnated disc applied, skin prep, StatLock, and Tegaderm applied. No signs or symptoms of IV complications noted. No concerns voiced. Patient to return next week for cares as scheduled. Patient voiced understanding of instructions.
[2019-12-13 11:04] LABS: HEMATOCRIT 37.2 % (42.0-52.0); HEMOGLOBIN 11.8 g/dl (13.5-18.0); MEAN CELL VOLUME 96 fl (80.0-100.0); MEAN CORPUSCULAR HEMOGLOBIN 31 pg (27.0-31.0); MEAN CORPUSCULAR HGB CONC 32 g/dl (33.0-37.0); MEAN PLATELET VOLUME 9.9 fl (7.4-10.4); PLATELET COUNT 397 K/mm3 (130-400); RED BLOOD COUNT 3.86 M/mm3 (4.20-5.60); REDCELL DISTRIBUTION WIDTH-CV 16.7 % (11.5-14.5)
[2019-12-13 11:20] LABS: ALBUMIN 4.3 gm/dL (3.5-5.0); BILIRUBIN,TOTAL 0.6 mg/dL (0.0-1.0); CALCIUM 10.1 mg/dL (8.4-10.2); CREATININE, serum 1.52 (0.66-1.25); POTASSIUM 4.2 mmol/L (3.4-5.0); TOTAL PROTEIN 7.7 gm/dL (6.4-8.2)
[2019-12-13 12:01] LABS: ANISOCYTOSIS 1+; BAND 1 % (0-10); HYPOCHROMIA 2+; LYMPHOCYTE 4 % (20.0-51.0); NEUTROPHILS 94 % (42.0-75.2); PLATELET ESTIMATE NORMAL (NORMAL)
[2019-12-13 12:02] LABS: OVALOCYTES 1+
[2019-12-13 12:03] LABS: STOMATOCYTE 1+
[2019-12-21 11:32] LABS: HEMATOCRIT 37.2 % (42.0-52.0); HEMOGLOBIN 11.7 g/dl (13.5-18.0); MEAN CELL VOLUME 95 fl (80.0-100.0); MEAN CORPUSCULAR HEMOGLOBIN 30 pg (27.0-31.0); MEAN CORPUSCULAR HGB CONC 32 g/dl (33.0-37.0); REDCELL DISTRIBUTION WIDTH-CV 16.3 % (11.5-14.5)
[2019-12-21 11:52] VITALS: BP 107/75; PULSE 107; TEMP 97.8
[2019-12-21 11:59] LABS: BAND 8 % (0-10); METAMYELOCYTE 2 % (0-0); NEUTROPHILS 39 % (42.0-75.2)
[2019-12-21 12:00] LABS: LYMPHOCYTE 42 % (20.0-51.0); PLATELET ESTIMATE DECREASED (NORMAL)
[2019-12-21 12:01] LABS: PLATELET COUNT 45 K/mm3 (130-400)
--- NOTE | 2019-12-27 10:45 | NUR ---
Here for cares. PICC intact left upper arm with sterile dressing change done with insertion site cleansed with chloraprep x 1, chlorhexidine impregnated disk applied, skin prep, stat lock, and tegaderm applied. no signs or symptoms of IV complications noted. No concerns voiced. re-wrapped with miguel to protect catheter. to return next week for cares. voiced understanding of instructions.
[2019-12-27 11:16] VITALS: BP 137/96; PULSE 109; TEMP 98.2
[2019-12-27 11:27] LABS: HEMOGLOBIN 11.5 g/dl (13.5-18.0); MEAN CELL VOLUME 96 fl (80.0-100.0); MEAN CORPUSCULAR HEMOGLOBIN 30 pg (27.0-31.0); MEAN CORPUSCULAR HGB CONC 31 g/dl (33.0-37.0); MEAN PLATELET VOLUME 12.4 fl (7.4-10.4); PLATELET COUNT 169 K/mm3 (130-400); RED BLOOD COUNT 3.85 M/mm3 (4.20-5.60); REDCELL DISTRIBUTION WIDTH-CV 17.3 % (11.5-14.5)
[2019-12-27 11:59] LABS: BAND 1 % (0-10); LYMPHOCYTE 25 % (20.0-51.0); METAMYELOCYTE 2 % (0-0); NEUTROPHILS 66 % (42.0-75.2); PLATELET ESTIMATE NORMAL (NORMAL)
[2019-12-27 12:00] LABS: OVALOCYTES 1+; TEAR DROP CELLS 1+
--- NOTE | 2020-01-03 10:45 | NUR ---
Here for cares. PICC intact left upper arm. with sterile technique left upper arm PICC dressing change done with insertion site cleansed with choraprep x 1, chlorhexidine impregnated disk applied, skin prep, stat lock, and tegaderm applied. no signs or symptoms of IV complications noted. no concerns voiced. re-wrapped with miguel to protect catheter. to return next week for cares. voiced understanding of instructions.
[2020-01-03 11:07] LABS: HEMOGLOBIN 10.3 g/dl (13.5-18.0); MEAN CELL VOLUME 97 fl (80.0-100.0); MEAN CORPUSCULAR HEMOGLOBIN 30 pg (27.0-31.0); MEAN CORPUSCULAR HGB CONC 31 g/dl (33.0-37.0); MEAN PLATELET VOLUME 11.1 fl (7.4-10.4); PLATELET COUNT 271 K/mm3 (130-400); RED BLOOD COUNT 3.44 M/mm3 (4.20-5.60); REDCELL DISTRIBUTION WIDTH-CV 17.4 % (11.5-14.5)
[2020-01-03 11:14] LABS: HEMATOCRIT 33.4 % (42.0-52.0)
[2020-01-03 11:18] LABS: ALBUMIN 3.7 gm/dL (3.5-5.0); BILIRUBIN,TOTAL 0.4 mg/dL (0.0-1.0); CALCIUM 9.1 mg/dL (8.4-10.2); CREATININE, serum 1.13 (0.66-1.25); POTASSIUM 3.9 mmol/L (3.4-5.0); TOTAL PROTEIN 6.5 gm/dL (6.4-8.2)
[2020-01-03 11:37] VITALS: BP 119/76; PULSE 99; TEMP 98.5
[2020-01-03 11:52] LABS: BAND 2 % (0-10); LYMPHOCYTE 18 % (20.0-51.0); NEUTROPHILS 61 % (42.0-75.2)
[2020-01-03 11:53] LABS: ANISOCYTOSIS 1+; PLATELET ESTIMATE NORMAL (NORMAL)
[2020-01-03 11:54] LABS: HYPOCHROMIA 1+
[2020-01-03 11:56] LABS: SCHISTOCYTES 1+; TEAR DROP CELLS 1+
[2020-01-03 12:02] LABS: OVALOCYTES 1+
[2020-01-10 11:01] VITALS: BP 129/87; PULSE 120; TEMP 98.5
[2020-01-10 11:17] LABS: HEMOGLOBIN 10.1 g/dl (13.5-18.0); MEAN CELL VOLUME 97 fl (80.0-100.0); MEAN CORPUSCULAR HEMOGLOBIN 30 pg (27.0-31.0); MEAN CORPUSCULAR HGB CONC 31 g/dl (33.0-37.0); MEAN PLATELET VOLUME 11.4 fl (7.4-10.4); PLATELET COUNT 115 K/mm3 (130-400); RED BLOOD COUNT 3.39 M/mm3 (4.20-5.60); REDCELL DISTRIBUTION WIDTH-CV 17.5 % (11.5-14.5)
[2020-01-10 11:22] LABS: HEMATOCRIT 32.9 % (42.0-52.0)
[2020-01-10 11:52] LABS: ANISOCYTOSIS 1+; BAND 8 % (0-10); LYMPHOCYTE 11 % (20.0-51.0); PLATELET ESTIMATE DECREASED (NORMAL)
[2020-01-10 11:56] LABS: NEUTROPHILS 78 % (42.0-75.2)
[2020-01-17 11:15] VITALS: BP 138/104; PULSE 113; TEMP 98.3
[2020-01-17 13:10] LABS: HEMOGLOBIN 10.8 g/dl (13.5-18.0); MEAN CELL VOLUME 97 fl (80.0-100.0); MEAN CORPUSCULAR HEMOGLOBIN 30 pg (27.0-31.0); MEAN CORPUSCULAR HGB CONC 31 g/dl (33.0-37.0); MEAN PLATELET VOLUME 12.4 fl (7.4-10.4); PLATELET COUNT 117 K/mm3 (130-400); RED BLOOD COUNT 3.62 M/mm3 (4.20-5.60); REDCELL DISTRIBUTION WIDTH-CV 17.8 % (11.5-14.5)
[2020-01-17 13:22] LABS: HEMATOCRIT 35.1 % (42.0-52.0)
[2020-01-17 14:23] LABS: BAND 9 % (0-10); LYMPHOCYTE 26 % (20.0-51.0); METAMYELOCYTE 3 % (0-0); NEUTROPHILS 60 % (42.0-75.2); NUCLEATED RED BLOOD CELL 2 (0-6)
[2020-01-17 14:24] LABS: ANISOCYTOSIS 1+; HYPOCHROMIA 1+; PLATELET ESTIMATE DECREASED (NORMAL); POLYCHROMASIA 1+
[2020-01-17 14:27] LABS: OVALOCYTES 1+
[2020-01-17 14:28] LABS: SCHISTOCYTES 1+
--- NOTE | 2020-01-24 11:00 | NUR ---
Here for cares. with sterile technique left upper arm PICC dressing change done with insertion site cleansed with chloraprep x 1, chlorhexidine impregnated disk applied, skin prep, stat lock, and tegaderm applied. no signs or symptoms of IV complications noted. no concerns voiced. re-wrapped with an miguel to protect catheter. to return next week as scheduled for cares. voiced understanding of instructions.
[2020-01-24 11:17] VITALS: BP 120/81; PULSE 128; TEMP 98.5
[2020-01-24 11:20] LABS: ALBUMIN 4.1 gm/dL (3.5-5.0); BILIRUBIN,TOTAL 0.5 mg/dL (0.0-1.0); CALCIUM 9.4 mg/dL (8.4-10.2); CREATININE, serum 1.26 (0.66-1.25); POTASSIUM 3.9 mmol/L (3.4-5.0); TOTAL PROTEIN 6.9 gm/dL (6.4-8.2)
[2020-01-24 11:29] LABS: HEMATOCRIT 37.2 % (42.0-52.0); HEMOGLOBIN 11.6 g/dl (13.5-18.0); MEAN CELL VOLUME 96 fl (80.0-100.0); MEAN CORPUSCULAR HEMOGLOBIN 30 pg (27.0-31.0); MEAN CORPUSCULAR HGB CONC 31 g/dl (33.0-37.0); MEAN PLATELET VOLUME 11.3 fl (7.4-10.4); PLATELET COUNT 253 K/mm3 (130-400); RED BLOOD COUNT 3.87 M/mm3 (4.20-5.60); REDCELL DISTRIBUTION WIDTH-CV 18.3 % (11.5-14.5)
[2020-01-24 11:49] LABS: BAND 3 % (0-10); LYMPHOCYTE 34 % (20.0-51.0); METAMYELOCYTE 1 % (0-0); NEUTROPHILS 51 % (42.0-75.2); PLATELET ESTIMATE NORMAL (NORMAL)
[2020-02-01 10:55] VITALS: BP 154/97; PULSE 117; TEMP 98.4
--- NOTE | 2020-02-01 11:00 | NUR ---
Here for cares. Left upper arm PICC intact with sterile dressing change done with insertion site cleansed with chloraprep x 1, chlorhexidine impregnated disk applied, skin prep, stat lock, and tegaderm applied. no signs or symptoms of IV complications noted. no concerns voiced. re-wrapped with miguel to protect catheter. to return next week for cares. voiced understanding of instructions.
[2020-02-01 11:18] LABS: HEMATOCRIT 31.3 % (42.0-52.0); HEMOGLOBIN 9.6 g/dl (13.5-18.0); MEAN CELL VOLUME 97 fl (80.0-100.0); MEAN CORPUSCULAR HEMOGLOBIN 30 pg (27.0-31.0); MEAN CORPUSCULAR HGB CONC 31 g/dl (33.0-37.0); PLATELET COUNT 65 K/mm3 (130-400); RED BLOOD COUNT 3.22 M/mm3 (4.20-5.60); REDCELL DISTRIBUTION WIDTH-CV 18.2 % (11.5-14.5)
[2020-02-01 11:56] LABS: BAND 6 % (0-10); EOSINOPHIL 1 % (0-4); LYMPHOCYTE 28 % (20.0-51.0); METAMYELOCYTE 2 % (0-0); NEUTROPHILS 52 % (42.0-75.2); PLATELET ESTIMATE DECREASED (NORMAL)
[2020-02-07 10:40] VITALS: BP 150/103; PULSE 139; TEMP 97.5
[2020-02-07 10:54] LABS: HEMOGLOBIN 10.6 g/dl (13.5-18.0); MEAN CELL VOLUME 96 fl (80.0-100.0); MEAN CORPUSCULAR HEMOGLOBIN 29 pg (27.0-31.0); MEAN CORPUSCULAR HGB CONC 30 g/dl (33.0-37.0); PLATELET COUNT 164 K/mm3 (130-400); RED BLOOD COUNT 3.66 M/mm3 (4.20-5.60); REDCELL DISTRIBUTION WIDTH-CV 19.1 % (11.5-14.5)
[2020-02-07 11:45] LABS: BAND 3 % (0-10); LYMPHOCYTE 2 % (20.0-51.0); METAMYELOCYTE 1 % (0-0); NEUTROPHILS 88 % (42.0-75.2); NUCLEATED RED BLOOD CELL 2 (0-6); PLATELET ESTIMATE NORMAL (NORMAL)
[2020-02-14 11:03] VITALS: BP 136/91; PULSE 120; TEMP 98.3
[2020-02-14 11:16] LABS: ALBUMIN 3.9 gm/dL (3.5-5.0); BILIRUBIN,TOTAL 0.5 mg/dL (0.0-1.0); CALCIUM 9.8 mg/dL (8.4-10.2); CREATININE, serum 1.1 (0.66-1.25); TOTAL PROTEIN 6.6 gm/dL (6.4-8.2)
[2020-02-14 11:19] LABS: MEAN CELL VOLUME 98 fl (80.0-100.0); MEAN CORPUSCULAR HEMOGLOBIN 30 pg (27.0-31.0); MEAN CORPUSCULAR HGB CONC 30 g/dl (33.0-37.0); MEAN PLATELET VOLUME 10.8 fl (7.4-10.4); PLATELET COUNT 326 K/mm3 (130-400); RED BLOOD COUNT 3.71 M/mm3 (4.20-5.60); REDCELL DISTRIBUTION WIDTH-CV 19.8 % (11.5-14.5)
[2020-02-14 11:24] LABS: HEMATOCRIT 36.3 % (42.0-52.0)
[2020-02-14 11:42] LABS: BAND 5 % (0-10); LYMPHOCYTE 26 % (20.0-51.0); NEUTROPHILS 58 % (42.0-75.2); PLATELET ESTIMATE NORMAL (NORMAL)
[2020-02-14 11:43] LABS: ANISOCYTOSIS 1+; OVALOCYTES 1+; TEAR DROP CELLS 1+
[~2020-02-21] VITALS: Ht 167.6 cm; Wt 79.3 kg
[2020-02-21 10:52] VITALS: BP 121/92; PULSE 124; TEMP 98.2
--- NOTE | 2020-02-21 11:00 | NUR ---
Here for cares. PICC intact left upper arm with sterile dressing change done with insertion site cleansed with chloraprep x 1, chlorhexidine impregnated disk applied, skin prep, stat lock, and tegaderm applied. no signs or symptoms of IV complications noted. no concerns voiced. re-wrapped with miguel to protect catheter. to return next week for cares. voiced understanding of instructions.
[2020-02-21 11:30] LABS: HEMOGLOBIN 10.1 g/dl (13.5-18.0); MEAN CELL VOLUME 97 fl (80.0-100.0); MEAN CORPUSCULAR HEMOGLOBIN 29 pg (27.0-31.0); MEAN CORPUSCULAR HGB CONC 30 g/dl (33.0-37.0); MEAN PLATELET VOLUME 11.7 fl (7.4-10.4); PLATELET COUNT 143 K/mm3 (130-400); RED BLOOD COUNT 3.43 M/mm3 (4.20-5.60); REDCELL DISTRIBUTION WIDTH-CV 18.7 % (11.5-14.5)
[2020-02-21 11:36] LABS: HEMATOCRIT 33.3 % (42.0-52.0)
[2020-02-21 11:57] LABS: BAND 8 % (0-10); LYMPHOCYTE 21 % (20.0-51.0); NEUTROPHILS 70 % (42.0-75.2); PLATELET ESTIMATE NORMAL (NORMAL)
== END 2020-02-23 09:08 | disposition home or self-care (01) ==
LOC: EUO 11:00
PROVIDERS: Internal Medicine; Internal Medicine Medical Oncology
DX: C34.01 Malignant neoplasm of right main bronchus (principal)

== ENCOUNTER 2020-03-05 11:00 | Outpatient (RCR) | payer MEDICARE ==
[2020-02-28 11:28] VITALS: BP 123/90; PULSE 126; TEMP 97.7
[2020-02-28 11:48] LABS: MEAN CELL VOLUME 95 fl (80.0-100.0); MEAN CORPUSCULAR HGB CONC 31 g/dl (33.0-37.0); MEAN PLATELET VOLUME 11.8 fl (7.4-10.4); PLATELET COUNT 148 K/mm3 (130-400); RED BLOOD COUNT 3.34 M/mm3 (4.20-5.60); REDCELL DISTRIBUTION WIDTH-CV 18.6 % (11.5-14.5)
[2020-02-28 11:55] LABS: HEMATOCRIT 31.8 % (42.0-52.0); HEMOGLOBIN 9.7 g/dl (13.5-18.0); MEAN CORPUSCULAR HEMOGLOBIN 29 pg (27.0-31.0)
[2020-02-28 12:21] LABS: BAND 8 % (0-10); EOSINOPHIL 1 % (0-4); LYMPHOCYTE 67 % (20.0-51.0); NEUTROPHILS 8 % (42.0-75.2); OVALOCYTES 1+; PLATELET ESTIMATE NORMAL (NORMAL); TEAR DROP CELLS 1+
[~2020-03-05] VITALS: Ht 167.6 cm; Wt 83.6 kg
--- NOTE | 2020-03-05 10:50 | NUR ---
here for cares. Left upper arm PICC dressing change done with sterile technique. Insertion site cleansed with ChloraPrep 1, chlorhexidine impregnated disc applied, skin prep, StatLock, and Tegaderm applied. No signs or symptoms of IV complications noted. No concerns voiced. Arm wrapped with Wily to protect catheter. Patient to return next week for cares is scheduled. Patient voiced understanding of instructions.
[2020-03-05 11:32] LABS: HEMOGLOBIN 10.9 g/dl (13.5-18.0); MEAN CELL VOLUME 96 fl (80.0-100.0); MEAN CORPUSCULAR HEMOGLOBIN 29 pg (27.0-31.0); MEAN CORPUSCULAR HGB CONC 30 g/dl (33.0-37.0); MEAN PLATELET VOLUME 10.5 fl (7.4-10.4); PLATELET COUNT 373 K/mm3 (130-400); RED BLOOD COUNT 3.82 M/mm3 (4.20-5.60); REDCELL DISTRIBUTION WIDTH-CV 21.1 % (11.5-14.5)
[2020-03-05 11:39] LABS: ALBUMIN 3.7 gm/dL (3.5-5.0); BILIRUBIN,TOTAL 0.5 mg/dL (0.0-1.0); CALCIUM 9.3 mg/dL (8.4-10.2); CREATININE, serum 1.13 (0.66-1.25); POTASSIUM 4.2 mmol/L (3.4-5.0); TOTAL PROTEIN 6.5 gm/dL (6.4-8.2)
[2020-03-05 11:40] VITALS: BP 170/143; PULSE 119; TEMP 98
[2020-03-05 11:55] LABS: HEMATOCRIT 36.7 % (42.0-52.0)
[2020-03-05 12:21] LABS: ANISOCYTOSIS 2+; BAND 6 % (0-10); LYMPHOCYTE 12 % (20.0-51.0); NEUTROPHILS 76 % (42.0-75.2); PLATELET ESTIMATE NORMAL (NORMAL); TEAR DROP CELLS 1+
[2020-03-11] MEDS ORDERED: LEVAQUIN 750MG750 M1 PO (15:29)
[2020-03-11] MEDS ORDERED: NEURONTIN300 MG/CAP PO (15:30)
[2020-03-11] MEDS ORDERED: MUCINEX 60600 MG/TA1 PO (15:32)
[2020-03-11] MEDS ORDERED: DULCOLAX TAB5 MG PO (15:32)
[2020-03-11] MEDS ORDERED: LOZOL 2.5M2.5 MG/TAB PO (15:35)
[2020-03-11] MEDS ORDERED: THEO-DUR 3300 MG/TAB PO (15:39)
[2020-03-11] MEDS ORDERED: ZESTRIL 5MG5 MG PO (15:40)
[2020-03-11] MEDS ORDERED: DEMADEX10 MG PO (15:43)
[2020-03-11] MEDS ORDERED: ALDACTONE 25MG25 M1 PO (15:44)
[2020-03-11] MEDS ORDERED: PROTONIX 40MG T40 MG PO (16:31)
[2020-03-13] MEDS ORDERED: DOXYCYCLINE 10100 MG PO (11:01)
[2020-03-13] MEDS ORDERED: CEFTIN500 MG PO (11:02)
[2020-03-13] MEDS ORDERED: PREDNISONE20 MG PO (11:06)
== END 2020-03-13 11:14 | disposition home or self-care (01) ==
LOC: EUO 11:00
PROVIDERS: Internal Medicine Medical Oncology
DX: C34.01 Malignant neoplasm of right main bronchus (principal)

== ENCOUNTER → 2020-04-24 | Outpatient (CLI) | payer MEDICARE, MEDICAID ==
[~2020-04-24] MED LIST changes: +ANTIVERT 12.512.5 MG PO; +CEFTIN500 MG PO; +DOXYCYCLINE 10100 MG PO; +DULCOLAX TAB5 MG PO; +MUCINEX 60600 MG/TA1 PO; +NEURONTIN300 MG/CAP PO; +NYSTATIN OR100 MU/ML PO; +PROTONIX 40MG T40 MG PO; +ZESTRIL 5MG5 MG PO
== END ==
LOC: MHCPAIN 13:15
DX: M47.812 Spondylosis without myelopathy or radiculopathy, cervical region (principal); M54.2 Cervicalgia; G89.29 Other chronic pain; M54.12 Radiculopathy, cervical region
CPT/HCPCS: G0463

== ENCOUNTER 2020-05-22 11:00 | Outpatient (RCR) | payer MEDICARE, MEDICAID ==
[2020-04-11 11:00] VITALS: BP 125/86; PULSE 112; TEMP 98
--- NOTE | 2020-04-11 11:00 | NUR ---
Here for cares. Home Health unable to draw lab from PICC. PICC intact left upper arm with dressing intact with no chlorhexidine impregnated disk present. PICC flushed with 10 ml normal saline with good blood return noted. waited and then lab drawn. Patient prefers to have PICC cares done in now because he is stronger. PICC intact left upper arm with sterile dressing change done with insertion site cleansed with chloraprep x 1, chlorhexidine impregnated disk applied, skin prep, stat lock, and tegaderm applied. no signs or symptoms of IV complications noted. no concerns voiced. to return next week for cares. voiced understanding of instructions.
[2020-04-11 11:45] LABS: HEMOGLOBIN 10.4 g/dl (13.5-18.0); MEAN CELL VOLUME 98 fl (80.0-100.0); MEAN CORPUSCULAR HEMOGLOBIN 29 pg (27.0-31.0); MEAN CORPUSCULAR HGB CONC 30 g/dl (33.0-37.0); PLATELET COUNT 188 K/mm3 (130-400); RED BLOOD COUNT 3.59 M/mm3 (4.20-5.60)
[2020-04-11 11:50] LABS: ALBUMIN 3.5 gm/dL (3.5-5.0); BILIRUBIN,TOTAL 0.4 mg/dL (0.0-1.0); CALCIUM 9.2 mg/dL (8.4-10.2); CHOLESTEROL RISK RATIO 3.7; CREATININE, serum 0.82 (0.66-1.25); POTASSIUM 3.7 mmol/L (3.4-5.0); TOTAL PROTEIN 5.8 gm/dL (6.4-8.2)
[2020-04-11 11:52] LABS: HEMATOCRIT 35.2 % (42.0-52.0)
[2020-04-11 12:29] LABS: BAND 3 % (0-10); EOSINOPHIL 3 % (0-4); LYMPHOCYTE 12 % (20.0-51.0); METAMYELOCYTE 1 % (0-0); NEUTROPHILS 65 % (42.0-75.2)
[2020-04-11 12:31] LABS: HYPOCHROMIA 3+; OVALOCYTES 2+; TEAR DROP CELLS 1+
[2020-04-11 12:33] LABS: PLATELET ESTIMATE NORMAL (NORMAL); SCHISTOCYTES 1+
[2020-04-16 13:11] VITALS: BP 132/100; PULSE 118; TEMP 98.2
[2020-04-16 13:20] LABS: HEMATOCRIT 34.9 % (42.0-52.0); HEMOGLOBIN 10.5 g/dl (13.5-18.0); MEAN CELL VOLUME 96 fl (80.0-100.0); MEAN CORPUSCULAR HEMOGLOBIN 29 pg (27.0-31.0); MEAN CORPUSCULAR HGB CONC 30 g/dl (33.0-37.0); MEAN PLATELET VOLUME 10.6 fl (7.4-10.4); PLATELET COUNT 168 K/mm3 (130-400); RED BLOOD COUNT 3.62 M/mm3 (4.20-5.60); REDCELL DISTRIBUTION WIDTH-CV 19.7 % (11.5-14.5)
[2020-04-16 13:30] LABS: ALBUMIN 3.6 gm/dL (3.5-5.0); BILIRUBIN,TOTAL 0.4 mg/dL (0.0-1.0); CREATININE, serum 0.94 (0.66-1.25); POTASSIUM 3.4 mmol/L (3.4-5.0); TOTAL PROTEIN 5.9 gm/dL (6.4-8.2)
[2020-04-16 13:38] LABS: BAND 2 % (0-10); LYMPHOCYTE 20 % (20.0-51.0); NEUTROPHILS 68 % (42.0-75.2)
[2020-04-16 13:39] LABS: ANISOCYTOSIS 2+; HYPOCHROMIA 2+; OVALOCYTES 1+; PLATELET ESTIMATE NORMAL (NORMAL); TEAR DROP CELLS 1+
--- NOTE | 2020-04-24 12:50 | NUR ---
Here for cares. PICC intact left upper arm with sterile dressing change done with insertion site cleansed with chloraprep x 1, chlorhexidine impregnated disk applied, skin prep, stat lock, and tegaderm applied. no signs or symptoms of IV complications noted. no concerns voiced. re-wrapped with an miguel to protect catheter. to return next week for cares. voiced understanding of instructions.
[2020-04-24 13:09] LABS: ALBUMIN 3.9 gm/dL (3.5-5.0); BILIRUBIN,TOTAL 0.5 mg/dL (0.0-1.0); CALCIUM 9.6 mg/dL (8.4-10.2); CREATININE, serum 0.95 (0.66-1.25); POTASSIUM 3.3 mmol/L (3.4-5.0); TOTAL PROTEIN 6.3 gm/dL (6.4-8.2)
[2020-04-24 13:10] LABS: HEMATOCRIT 37.5 % (42.0-52.0); HEMOGLOBIN 11.5 g/dl (13.5-18.0); MEAN CELL VOLUME 93 fl (80.0-100.0); MEAN CORPUSCULAR HEMOGLOBIN 29 pg (27.0-31.0); MEAN CORPUSCULAR HGB CONC 31 g/dl (33.0-37.0); MEAN PLATELET VOLUME 10.7 fl (7.4-10.4); PLATELET COUNT 285 K/mm3 (130-400); RED BLOOD COUNT 4.03 M/mm3 (4.20-5.60)
[2020-04-24 13:56] LABS: BAND 1 % (0-10); LYMPHOCYTE 15 % (20.0-51.0); NEUTROPHILS 79 % (42.0-75.2)
[2020-04-24 13:57] LABS: OVALOCYTES 1+; PLATELET ESTIMATE NORMAL (NORMAL)
[2020-04-24 13:58] LABS: HYPOCHROMIA 2+; TEAR DROP CELLS 1+
[2020-04-24 13:59] LABS: ANISOCYTOSIS 2+
[2020-04-24 14:13] VITALS: BP 117/103; PULSE 112; TEMP 98.6
[2020-05-01 10:45] VITALS: BP 134/97; PULSE 111; TEMP 97.5
[2020-05-01 10:51] LABS: HEMOGLOBIN 11.3 g/dl (13.5-18.0); MEAN CELL VOLUME 93 fl (80.0-100.0); MEAN CORPUSCULAR HEMOGLOBIN 28 pg (27.0-31.0); MEAN CORPUSCULAR HGB CONC 30 g/dl (33.0-37.0); MEAN PLATELET VOLUME 10.4 fl (7.4-10.4); PLATELET COUNT 258 K/mm3 (130-400); RED BLOOD COUNT 4.08 M/mm3 (4.20-5.60); REDCELL DISTRIBUTION WIDTH-CV 18.8 % (11.5-14.5)
[2020-05-01 11:03] LABS: ALBUMIN 3.8 gm/dL (3.5-5.0); BILIRUBIN,TOTAL 0.4 mg/dL (0.0-1.0); CALCIUM 9.9 mg/dL (8.4-10.2); CREATININE, serum 1.04 (0.66-1.25); POTASSIUM 3.1 mmol/L (3.4-5.0); TOTAL PROTEIN 6.4 gm/dL (6.4-8.2)
[2020-05-01 11:20] LABS: BAND 1 % (0-10); LYMPHOCYTE 13 % (20.0-51.0); NEUTROPHILS 76 % (42.0-75.2); OVALOCYTES 1+; PLATELET ESTIMATE NORMAL (NORMAL)
[2020-05-01 11:21] LABS: SCHISTOCYTES 1+; TEAR DROP CELLS 1+
[2020-05-08 10:31] VITALS: BP 120/82; PULSE 101; TEMP 98.6
[2020-05-08 10:49] LABS: HEMOGLOBIN 11.1 g/dl (13.5-18.0); MEAN CELL VOLUME 93 fl (80.0-100.0); MEAN CORPUSCULAR HEMOGLOBIN 28 pg (27.0-31.0); MEAN CORPUSCULAR HGB CONC 30 g/dl (33.0-37.0); MEAN PLATELET VOLUME 11.3 fl (7.4-10.4); PLATELET COUNT 203 K/mm3 (130-400); RED BLOOD COUNT 3.95 M/mm3 (4.20-5.60)
[2020-05-08 10:50] LABS: HEMATOCRIT 36.8 % (42.0-52.0)
--- NOTE | 2020-05-08 10:50 | NUR ---
Here for cares. PICC intact left upper arm with sterile dressing change done with insertion site cleansed with chloraprep x 1, chlorhexidine impregnated disk applied, skin prep, stat lock, and tegaderm applied. no signs or symptoms of IV complications noted. no concerns voiced. to return next week for cares. voiced understanding of instructions.
[2020-05-08 10:53] LABS: ALBUMIN 3.5 gm/dL (3.5-5.0); BILIRUBIN,TOTAL 0.5 mg/dL (0.0-1.0); CALCIUM 9.4 mg/dL (8.4-10.2); CREATININE, serum 0.98 (0.66-1.25); POTASSIUM 3.4 mmol/L (3.4-5.0); TOTAL PROTEIN 6.2 gm/dL (6.4-8.2)
[2020-05-08 11:09] LABS: BAND 1 % (0-10); EOSINOPHIL 1 % (0-4); LYMPHOCYTE 22 % (20.0-51.0); NEUTROPHILS 70 % (42.0-75.2)
[2020-05-08 11:10] LABS: HYPOCHROMIA 1+; OVALOCYTES 1+; PLATELET ESTIMATE NORMAL (NORMAL)
[2020-05-08 11:11] LABS: ANISOCYTOSIS 1+
[2020-05-08 11:12] LABS: SCHISTOCYTES 1+
[2020-05-15 11:01] VITALS: BP 138/95; PULSE 114; TEMP 97.6
[2020-05-15 11:26] LABS: HEMOGLOBIN 10.7 g/dl (13.5-18.0); MEAN CELL VOLUME 91 fl (80.0-100.0); MEAN CORPUSCULAR HEMOGLOBIN 27 pg (27.0-31.0); MEAN CORPUSCULAR HGB CONC 30 g/dl (33.0-37.0); MEAN PLATELET VOLUME 11.8 fl (7.4-10.4); PLATELET COUNT 258 K/mm3 (130-400); REDCELL DISTRIBUTION WIDTH-CV 19.2 % (11.5-14.5)
[2020-05-15 11:32] LABS: HEMATOCRIT 35.6 % (42.0-52.0)
[2020-05-15 11:44] LABS: ALBUMIN 3.7 gm/dL (3.5-5.0); BILIRUBIN,TOTAL 0.4 mg/dL (0.0-1.0); CALCIUM 9.3 mg/dL (8.4-10.2); CREATININE, serum 0.97 (0.66-1.25); POTASSIUM 3.1 mmol/L (3.4-5.0); TOTAL PROTEIN 6.5 gm/dL (6.4-8.2)
[2020-05-15 12:36] LABS: BAND 1 % (0-10); LYMPHOCYTE 15 % (20.0-51.0); NEUTROPHILS 75 % (42.0-75.2)
[2020-05-15 12:37] LABS: ANISOCYTOSIS 1+; HYPOCHROMIA 1+; PLATELET ESTIMATE NORMAL (NORMAL)
[~2020-05-22] VITALS: Ht 167.6 cm; Wt 76.7 kg
[2020-05-22 10:59] VITALS: BP 141/90; PULSE 63; TEMP 98.7
[2020-05-22 11:06] LABS: HEMATOCRIT 37.2 % (42.0-52.0); HEMOGLOBIN 11.1 g/dl (13.5-18.0); MEAN CELL VOLUME 92 fl (80.0-100.0); MEAN CORPUSCULAR HEMOGLOBIN 28 pg (27.0-31.0); MEAN CORPUSCULAR HGB CONC 30 g/dl (33.0-37.0); MEAN PLATELET VOLUME 10.5 fl (7.4-10.4); PLATELET COUNT 365 K/mm3 (130-400); RED BLOOD COUNT 4.04 M/mm3 (4.20-5.60); REDCELL DISTRIBUTION WIDTH-CV 19.2 % (11.5-14.5)
[2020-05-22 11:14] LABS: ALBUMIN 3.7 gm/dL (3.5-5.0); BILIRUBIN,TOTAL 0.4 mg/dL (0.0-1.0); CALCIUM 9.7 mg/dL (8.4-10.2); CREATININE, serum 0.97 (0.66-1.25); POTASSIUM 3.4 mmol/L (3.4-5.0); TOTAL PROTEIN 6.6 gm/dL (6.4-8.2)
[2020-05-22 11:34] LABS: BAND 1 % (0-10); EOSINOPHIL 1 % (0-4); LYMPHOCYTE 26 % (20.0-51.0); NEUTROPHILS 56 % (42.0-75.2); PLATELET ESTIMATE NORMAL (NORMAL)
[2020-05-22 11:35] LABS: ANISOCYTOSIS 2+; OVALOCYTES 1+
== END 2020-05-22 12:25 | disposition home or self-care (01) ==
LOC: EUO 11:00
PROVIDERS: Family Medicine; Internal Medicine Medical Oncology
DX: C34.01 Malignant neoplasm of right main bronchus (principal); C78.01 Secondary malignant neoplasm of right lung; C78.02 Secondary malignant neoplasm of left lung

== ENCOUNTER 2020-07-17 11:00 | Outpatient (RCR) | payer MEDICARE, MEDICAID, OTHER ==
[2020-05-29 11:04] VITALS: BP 144/103; PULSE 111; TEMP 98.5
[2020-06-05 10:49] VITALS: BP 156/82; PULSE 79; TEMP 98
[2020-06-12 11:04] VITALS: BP 126/86; PULSE 113; TEMP 98.1
[2020-06-19 10:56] LABS: HEMATOCRIT 37.2 % (42.0-52.0); MEAN CELL VOLUME 90 fl (80.0-100.0); MEAN CORPUSCULAR HEMOGLOBIN 27 pg (27.0-31.0); MEAN CORPUSCULAR HGB CONC 30 g/dl (33.0-37.0); MEAN PLATELET VOLUME 10.3 fl (7.4-10.4); PLATELET COUNT 323 K/mm3 (130-400); RED BLOOD COUNT 4.14 M/mm3 (4.20-5.60); REDCELL DISTRIBUTION WIDTH-CV 19.1 % (11.5-14.5)
[2020-06-19 11:04] LABS: ALBUMIN 3.8 gm/dL (3.5-5.0); BILIRUBIN,TOTAL 0.5 mg/dL (0.0-1.0); CALCIUM 9.5 mg/dL (8.4-10.2); CREATININE, serum 0.95 (0.66-1.25); POTASSIUM 3.7 mmol/L (3.4-5.0); TOTAL PROTEIN 6.6 gm/dL (6.4-8.2)
[2020-06-19 11:18] VITALS: BP 140/100; PULSE 118; TEMP 98.5
[2020-06-19 12:12] LABS: BASOPHIL 1 % (0-2); LYMPHOCYTE 13 % (20.0-51.0)
[2020-06-19 12:14] LABS: PLATELET ESTIMATE NORMAL (NORMAL)
[2020-06-19 12:15] LABS: ANISOCYTOSIS 2+; HYPOCHROMIA 2+; NEUTROPHILS 78 % (42.0-75.2)
[2020-06-19 12:17] LABS: POLYCHROMASIA 1+
[2020-06-19 12:18] LABS: OVALOCYTES 1+
[2020-06-27 10:29] VITALS: BP 127/91; PULSE 114; TEMP 97.7
[2020-07-03 10:43] VITALS: BP 134/86; PULSE 114; TEMP 99.2
[2020-07-11 11:54] VITALS: BP 136/98; PULSE 121; TEMP 98.5
[~2020-07-17] VITALS: Ht 167.6 cm; Wt 73.8 kg
[2020-07-17 10:36] VITALS: BP 143/98; PULSE 127; TEMP 99
[2020-07-17 10:40] LABS: HEMATOCRIT 39.4 % (42.0-52.0); HEMOGLOBIN 11.7 g/dl (13.5-18.0); MEAN CELL VOLUME 86 fl (80.0-100.0); MEAN CORPUSCULAR HEMOGLOBIN 25 pg (27.0-31.0); MEAN CORPUSCULAR HGB CONC 30 g/dl (33.0-37.0); MEAN PLATELET VOLUME 9.9 fl (7.4-10.4); PLATELET COUNT 366 K/mm3 (130-400); RED BLOOD COUNT 4.61 M/mm3 (4.20-5.60); REDCELL DISTRIBUTION WIDTH-CV 17.9 % (11.5-14.5)
[2020-07-17 10:44] LABS: CALCIUM 9.9 mg/dL (8.4-10.2); CREATININE, serum 1.1 (0.66-1.25); POTASSIUM 3.4 mmol/L (3.4-5.0)
[~2020-07-17 11:00] MED LIST changes: -ATIVAN 1MG T1 MG/TAB PO; -BACTRIM DS 8001 TAB PO; -FERRO-TIME325 MG PO; -K-DUR20 MEQ PO; -LASIX 20MG TABL20 MG PO; -MONODOX100 PO; -MORPHINE 1515 MG/TAB PO; -MS CONTIN 115 MG/TAB PO; -PULMICORT0.5 MG/2 M; -ROXANOL 20MG20 MG/ML PO; -SENOKOT S 50 MG1 TAB PO
[2020-07-17 12:03] LABS: BAND 4 % (0-10); EOSINOPHIL 2 % (0-4); LYMPHOCYTE 5 % (20.0-51.0); NEUTROPHILS 83 % (42.0-75.2)
[2020-07-17 12:05] LABS: OVALOCYTES 1+
== END 2020-08-06 09:53 | disposition still patient (30) ==
LOC: EUO 11:00
PROVIDERS: Internal Medicine Medical Oncology
DX: C34.01 Malignant neoplasm of right main bronchus (principal); C78.01 Secondary malignant neoplasm of right lung; C78.02 Secondary malignant neoplasm of left lung

== ENCOUNTER → 2020-07-17 | Outpatient (CLI) | payer MEDICARE, MEDICAID, OTHER ==
[~2020-07-17] MED LIST changes: +ATIVAN 1MG T1 MG/TAB PO; +BACTRIM DS 8001 TAB PO; +FERRO-TIME325 MG PO; +K-DUR20 MEQ PO; +LASIX 20MG TABL20 MG PO; +MONODOX100 PO; +MORPHINE 1515 MG/TAB PO; +MS CONTIN 115 MG/TAB PO; +PULMICORT0.5 MG/2 M; +ROXANOL 20MG20 MG/ML PO; +SENOKOT S 50 MG1 TAB PO
== END ==
LOC: MHCPAIN 09:27
DX: M47.812 Spondylosis without myelopathy or radiculopathy, cervical region (principal); M54.12 Radiculopathy, cervical region; M54.5 Low back pain; G89.29 Other chronic pain
CPT/HCPCS: G0463

== ENCOUNTER 2020-07-22 13:18 | Emergency (ER) | payer MEDICARE, MEDICAID ==
[~2020-07-22] VITALS: Ht 167.6 cm; Wt 76.8 kg
[2020-07-22 13:18] VITALS: TEMP 97.9
[2020-07-22 13:46] LABS: ARTERIAL BLD GAS O2 SATURATION 84.5 % (92-100); ARTERIAL BLD GAS TCO2 CT 32.6; ARTERIAL BLOOD GAS HCO3 31.3 meq/L (22-26); ARTERIAL BLOOD GAS PCO2 43.3 mmHg (35-45); ARTERIAL BLOOD GAS PO2 45.7 mmHg (80-100); ARTERIAL BLOOD GAS pH 7.48 (7.35-7.45)
[2020-07-22 14:02] LABS: ALBUMIN 4.2 gm/dL (3.5-5.0); BILIRUBIN,TOTAL 0.5 mg/dL (0.0-1.0); C-REACTIVE PROTEIN 2.2 mg/dL (0.0-0.9); CALCIUM 9.7 mg/dL (8.4-10.2); CREATININE, serum 0.94 (0.66-1.25); POTASSIUM 3.1 mmol/L (3.4-5.0); TOTAL PROTEIN 7.4 gm/dL (6.4-8.2)
[2020-07-22 14:09] LABS: BASO % 0.1 % (0.0-2.0); EOS # 0.1 (0.0-0.7); EOS % 0.4 % (0-4.0); GRAN # 13.5 (1.4-6.5); GRAN % 89.7 % (42.2-75.2); HEMATOCRIT 38.5 % (42.0-52.0); HEMOGLOBIN 11.5 g/dl (13.5-18.0); LYMPH # 0.6 (1.2-3.4); LYMPH % 4.2 % (20.0-51.0); MEAN CELL VOLUME 86 fl (80.0-100.0); MEAN CORPUSCULAR HEMOGLOBIN 26 pg (27.0-31.0); MEAN CORPUSCULAR HGB CONC 30 g/dl (33.0-37.0); MEAN PLATELET VOLUME 10.1 fl (7.4-10.4); MONO # 0.7 (0.1-0.6); MONO % 4.6 % (1.7-9.3); PLATELET COUNT 262 K/mm3 (130-400); RED BLOOD COUNT 4.48 M/mm3 (4.20-5.60)
[2020-07-22 14:11] LABS: TROPONIN-I 0.021 ng/mL (0.000-0.035)
[2020-07-22 15:19] LABS: COLLECTION METHOD CLEAN CATCH
[2020-07-22 15:25] LABS: MUCOUS Present /lpf; PH 6 (5-8); SQUAMOUS EPITHELIAL None Seen /hpf; URINE APPEARANCE Clear; URINE BACTERIA None Seen /hpf; URINE BILIRUBIN Negative (NEGATIVE); URINE BLOOD Negative (NEGATIVE); URINE COLOR Yellow; URINE GLUCOSE Negative (NEGATIVE); URINE KETONE Negative (NEGATIVE); URINE LEUKOCYTE ESTERASE Negative (NEGATIVE); URINE NITRATE Negative (NEGATIVE); URINE PROTEIN(semi-quant) Negative (NEGATIVE); URINE RBC 0-2 /hpf; URINE UROBILINOGEN Negative (NEGATIVE)
[2020-07-22 16:26] VITALS: BP 123/90
[2020-07-22 16:55] VITALS: PULSE 91
== END 2020-07-22 17:02 | disposition short-term general hospital (02) ==
LOC: COL.ER 13:18
PROVIDERS: Family Medicine
DX: J96.20 Acute and chronic respiratory failure, unspecified whether with hypoxia or hypercapnia (principal); J44.9 Chronic obstructive pulmonary disease, unspecified; I10 Essential (primary) hypertension; K21.9 Gastro-esophageal reflux disease without esophagitis; Z20.822 Contact with and (suspected) exposure to COVID-19; Z85.118 Personal history of other malignant neoplasm of bronchus and lung; Z88.8 Allergy status to other drugs, medicaments and biological substances; Z87.891 Personal history of nicotine dependence; Z79.52 Long term (current) use of systemic steroids; Z79.82 Long term (current) use of aspirin
CPT/HCPCS: J0692; J7030

== ENCOUNTER 2020-09-06 16:39 | Emergency (ER) | payer MEDICARE, MEDICAID ==
[~2020-09-06] VITALS: Ht 167.6 cm; Wt 73.6 kg
[2020-09-06 16:48] VITALS: TEMP 98.2
[2020-09-06 17:36] LABS: BASO % 0.1 % (0.0-2.0); GRAN # 10.5 (1.4-6.5); GRAN % 88.4 % (42.2-75.2); HEMOGLOBIN 10.5 g/dl (13.5-18.0); LYMPH # 0.6 (1.2-3.4); LYMPH % 5.4 % (20.0-51.0); MEAN CELL VOLUME 83 fl (80.0-100.0); MEAN CORPUSCULAR HEMOGLOBIN 24 pg (27.0-31.0); MEAN CORPUSCULAR HGB CONC 29 g/dl (33.0-37.0); MEAN PLATELET VOLUME 10.7 fl (7.4-10.4); MONO # 0.6 (0.1-0.6); MONO % 5.2 % (1.7-9.3); PLATELET COUNT 456 K/mm3 (130-400); RED BLOOD COUNT 4.32 M/mm3 (4.20-5.60); REDCELL DISTRIBUTION WIDTH-CV 18.7 % (11.5-14.5)
[2020-09-06 17:42] LABS: ARTERIAL BLD GAS O2 SATURATION 85.9 % (92-100); ARTERIAL BLD GAS TCO2 CT 34.2; ARTERIAL BLOOD GAS BASE EXCESS 7.2 (-2-2); ARTERIAL BLOOD GAS HCO3 32.7 meq/L (22-26); ARTERIAL BLOOD GAS PCO2 50.5 mmHg (35-45); ARTERIAL BLOOD GAS PO2 51.2 mmHg (80-100); ARTERIAL BLOOD GAS pH 7.43 (7.35-7.45)
[2020-09-06 18:04] LABS: ALANINE AMINOTRANSFERASE 14 U/L (4-49); ALBUMIN 3.9 gm/dL (3.5-5.0); ALKALINE PHOSPHATASE 66 U/L (50-136); ANION GAP 7 mmol/L (7-16); AST,SGOT 33 U/L (15-37); BILIRUBIN,TOTAL 0.3 mg/dL (0.0-1.0); BLOOD UREA NITROGEN 19 mg/dL (9-20); CALCIUM 9.5 mg/dL (8.4-10.2); CARBON DIOXIDE 35 mmol/L (22-30); CHLORIDE 97 mmol/L (98-107); CREATININE, serum 0.75 (0.66-1.25); GLUCOSE 170 mg/dL (74-106); POTASSIUM 4.3 mmol/L (3.4-5.0); SODIUM 138 mmol/L (137-145); TOTAL PROTEIN 7.5 gm/dL (6.4-8.2)
[2020-09-06 18:17] LABS: TROPONIN-I < 0.012 ng/mL (0.000-0.035)
[2020-09-06 20:16] VITALS: BP 124/94; PULSE 112
== END 2020-09-06 20:24 | disposition home or self-care (01) ==
LOC: COL.ER 16:39
PROVIDERS: Emergency Medicine; Nurse Practitioner Primary Care
DX: J90 Pleural effusion, not elsewhere classified (principal); J44.9 Chronic obstructive pulmonary disease, unspecified; I10 Essential (primary) hypertension; K21.9 Gastro-esophageal reflux disease without esophagitis; Z88.8 Allergy status to other drugs, medicaments and biological substances; Z87.891 Personal history of nicotine dependence; Z85.118 Personal history of other malignant neoplasm of bronchus and lung; Z79.52 Long term (current) use of systemic steroids; Z79.82 Long term (current) use of aspirin
CPT/HCPCS: J7030; Q9967

== ENCOUNTER 2020-10-04 17:02 | Observation (INO) | payer MEDICARE, MEDICAID ==
[~2020-10-04] VITALS: Ht 167.6 cm; Wt 84.1 kg
[2020-10-04 19:21] LABS: MEAN CELL VOLUME 87 fl (80.0-100.0); MEAN CORPUSCULAR HGB CONC 29 g/dl (33.0-37.0); PLATELET COUNT 344 K/mm3 (130-400); RED BLOOD COUNT 3.78 M/mm3 (4.20-5.60); REDCELL DISTRIBUTION WIDTH-CV 20.7 % (11.5-14.5)
[2020-10-04 19:23] LABS: HEMATOCRIT 32.9 % (42.0-52.0); HEMOGLOBIN 9.4 g/dl (13.5-18.0); MEAN CORPUSCULAR HEMOGLOBIN 25 pg (27.0-31.0)
[2020-10-04 19:34] LABS: ALANINE AMINOTRANSFERASE 13 U/L (4-49); ALBUMIN 3.6 gm/dL (3.5-5.0); ALKALINE PHOSPHATASE 81 U/L (50-136); ANION GAP 3 mmol/L (7-16); AST,SGOT 19 U/L (15-37); BILIRUBIN,TOTAL < 0.1 mg/dL (0.0-1.0); BLOOD UREA NITROGEN 23 mg/dL (9-20); CALCIUM 9.3 mg/dL (8.4-10.2); CARBON DIOXIDE 36 mmol/L (22-30); CHLORIDE 96 mmol/L (98-107); CREATININE, serum 0.74 (0.66-1.25); GLUCOSE 164 mg/dL (74-106); POTASSIUM 3.8 mmol/L (3.4-5.0); SODIUM 136 mmol/L (137-145); TOTAL PROTEIN 6.6 gm/dL (6.4-8.2)
[2020-10-04 19:42] LABS: LYMPHOCYTE 5 % (20.0-51.0); METAMYELOCYTE 1 % (0-0); NEUTROPHILS 90 % (42.0-75.2)
[2020-10-04 19:45] LABS: TROPONIN-I 0.021 ng/mL (0.000-0.035)
[2020-10-04 19:48] LABS: HYPOCHROMIA 3+
[2020-10-04 19:49] LABS: ANISOCYTOSIS 2+; PLATELET ESTIMATE NORMAL (NORMAL)
--- NOTE | 2020-10-04 23:48 | NUR ---
PT TRANSFERRED TO FLOOR AT 0045 FROM ER VIA STAFF. PT 02 NC 3L, A/OX4, PT STATES HE IS SOA, DOES NOT APPEAR IN IMMEDIATE DISTRESS, DENIES PAIN PT EXPRESSES NO ADDITIONAL NEEDS AT THIS TIME. CALL LIGHT WITHIN REACH.
[2020-10-04] MEDS ORDERED: PULMICORT0.5 MG/2 M IH (23:58)
[2020-10-05] VITALS (7 sets, daily range): BP systolic 136–156; BP diastolic 89–108; PULSE 108–116; TEMP 97.9–99.4
[2020-10-05] MEDS ORDERED: FERRO-TIME325 MG PO
[2020-10-05] MEDS ORDERED: NEURONTIN300 MG/CAP PO (00:01)
[2020-10-05] MEDS ORDERED: MUCINEX 60600 MG/TA1 PO (00:02)
[2020-10-05] MEDS ORDERED: MORPHINE 1515 MG/TAB PO (00:05)
[2020-10-05] MEDS ORDERED: MS CONTIN 115 MG/TAB PO (00:06)
[2020-10-05] MEDS ORDERED: PERFOROMIS20 MCG/2 M IH (00:07)
[2020-10-05] MEDS ORDERED: K-DUR20 MEQ PO (00:08)
[2020-10-05] MEDS ORDERED: BACTRIM DS 8001 TAB PO (00:10)
[2020-10-05] MEDS ORDERED: DEMADEX5 MG PO (00:11)
[2020-10-05] MEDS ORDERED: ATIVAN 1MG T1 MG/TAB PO (00:13)
[2020-10-05] MEDS ORDERED: LASIX 20MG TABL20 MG PO (00:13)
[2020-10-05 06:25] LABS: HEMOGLOBIN 10.1 g/dl (13.5-18.0); MEAN CELL VOLUME 88 fl (80.0-100.0); MEAN CORPUSCULAR HEMOGLOBIN 25 pg (27.0-31.0); MEAN CORPUSCULAR HGB CONC 29 g/dl (33.0-37.0); MEAN PLATELET VOLUME 11.7 fl (7.4-10.4); PLATELET COUNT 316 K/mm3 (130-400); RED BLOOD COUNT 4.01 M/mm3 (4.20-5.60); REDCELL DISTRIBUTION WIDTH-CV 20.9 % (11.5-14.5)
[2020-10-05 06:33] LABS: HEMATOCRIT 35.1 % (42.0-52.0)
[2020-10-05 06:53] LABS: CALCIUM 9.4 mg/dL (8.4-10.2); CREATININE, serum 0.74 (0.66-1.25); POTASSIUM 3.7 mmol/L (3.4-5.0)
[2020-10-05 07:58] LABS: PATHOLOGY DIFF REVIEW OK
[2020-10-05 08:04] LABS: ANISOCYTOSIS 2+; BAND 2 % (0-10); HYPOCHROMIA 1+; LYMPHOCYTE 7 % (20.0-51.0); METAMYELOCYTE 1 % (0-0); NEUTROPHILS 86 % (42.0-75.2); OVALOCYTES 1+; PLATELET ESTIMATE NORMAL (NORMAL)
--- NOTE | 2020-10-05 10:00 | NUR ---
Patient alert and oriented, answers questions appropriately. See assessment. Oxygen a 3l/nc. Lungs decreased in bases, clear in upper lobes. SOA with rest/exertion. Use of accessory muscles noted for breathing noted with ambulation. No c/o at this time.
--- NOTE | 2020-10-05 14:59 | NUR ---
Angiography Nurse attempted to meet with patient to discuss discharge planning, however patient was sleeping. SW contacted patient's , Kady (ph#[phone]) to discuss discharge planning. Kady advised she and patient live in [place] and patient is still seeing Dr. Bethea for primary care. Patient obtains medications from [facility] with no difficulties. Patient has home oxygen through [facility]. Patient also has a cane, walker, and wheelchair at home. Patient's advised that she feels patient has all the DME he needs at home. Kady reports that patient has had home health in the past, but feels he does not need HH services at this time. Patient has Advance Directives in EMR which designates his , Kady as DPOA-HC with Gaudencio Downey as an alternate. Kady reports the plan is for patient to return home upon discharge. PT/OT have been ordered. Discharge Plan: Home with
--- NOTE | 2020-10-05 22:09 | NUR ---
Patient sitting up on the edge of bed upon enter the room. Shift assessment completed. Patient A/O x4. Patient denies SOB or dyspnea while at rest. Patient currently on oxygen 3L via NC. Breathing even and unlabored at this time. Patient reports generalized pain all over his body. Scheduled pain meds given per JUL. Left upper arm PICC site has no s/s of complications. Flushed with NS without difficulty. Call light within reach. Patient denies any needs at this time.
[2020-10-06 04:08] VITALS: BP 145/89; PULSE 104; TEMP 98.4
--- NOTE | 2020-10-06 05:43 | NUR ---
PRN Morphine given for back pain at 02:35 am. Patient used Bipap over the night. SPO2 remains above 95% on 3L NC/Bipap over the night. No acute respiratory distress noted throughout the night. Call light within reach.
[2020-10-06 07:18] LABS: BASO % 0.1 % (0.0-2.0); GRAN # 11.7 (1.4-6.5); GRAN % 85.6 % (42.2-75.2); LYMPH # 0.6 (1.2-3.4); LYMPH % 4.6 % (20.0-51.0); MEAN CELL VOLUME 89 fl (80.0-100.0); MEAN CORPUSCULAR HGB CONC 28 g/dl (33.0-37.0); MEAN PLATELET VOLUME 10.6 fl (7.4-10.4); MONO # 1.2 (0.1-0.6); MONO % 8.7 % (1.7-9.3); PLATELET COUNT 398 K/mm3 (130-400); RED BLOOD COUNT 4.03 M/mm3 (4.20-5.60); REDCELL DISTRIBUTION WIDTH-CV 20.9 % (11.5-14.5)
[2020-10-06 07:20] LABS: HEMATOCRIT 35.8 % (42.0-52.0); HEMOGLOBIN 9.9 g/dl (13.5-18.0); MEAN CORPUSCULAR HEMOGLOBIN 25 pg (27.0-31.0)
--- NOTE | 2020-10-06 07:26 | NUR ---
Patient lying in bed at this time. Bipap on. Patient denies any pain, discomfort, or further needs at this time. Will continue to monitor. Call light in reach.
[2020-10-06 07:31] LABS: CALCIUM 9.9 mg/dL (8.4-10.2); CREATININE, serum 0.75 (0.66-1.25); POTASSIUM 3.6 mmol/L (3.4-5.0)
[2020-10-06 08:21] VITALS: BP 136/100; PULSE 110; TEMP 97.6
[2020-10-06] MEDS ORDERED: PREDNISONE10 MG PO (10:16)
[2020-10-06] MEDS ORDERED: PREDNISONE20 MG PO (10:17)
[2020-10-06] MEDS ORDERED: MONODOX100 PO (10:17)
--- NOTE | 2020-10-06 10:28 | NUR ---
Schedules meds given. Assessments performed. Expiratory wheezes present in all lung nye. All field diminished. Patient currently on 3L O2 via nasal cannula. VSS. Patient discharging home with PICC in place. Will continue to monitor. Call light in reach. Fall precautions in place.
--- NOTE | 2020-10-06 11:40 | NUR ---
Discharge instruction/education given. Patient denies any questions or concerns at this time. driving patient home. VSS. Patient denies any abnormal pain, discomfort, or futher needs at this time. Patient escorted out of the building by this RN via wheelchair.
== END 2020-10-06 11:43 | disposition home or self-care (01) ==
LOC: COL.ER 17:02 → MEDICAL 19:59
PROVIDERS: Emergency Medicine; Nurse Practitioner Family; ADMIT Hospitalist
DX: T82.524A Displacement of infusion catheter, initial encounter (principal); J44.1 Chronic obstructive pulmonary disease with (acute) exacerbation; J96.11 Chronic respiratory failure with hypoxia; C34.90 Malignant neoplasm of unspecified part of unspecified bronchus or lung; J91.8 Pleural effusion in other conditions classified elsewhere; I42.0 Dilated cardiomyopathy; Y83.8 Other surgical procedures as the cause of abnormal reaction of the patient, or of later complication, without mention of misadventure at the time of the procedure; F32.9 Major depressive disorder, single episode, unspecified; K21.9 Gastro-esophageal reflux disease without esophagitis; D64.9 Anemia, unspecified; G89.29 Other chronic pain; G62.9 Polyneuropathy, unspecified; Z79.82 Long term (current) use of aspirin; Z87.891 Personal history of nicotine dependence; J90 Pleural effusion, not elsewhere classified; Z79.899 Other long term (current) drug therapy; Z79.891 Long term (current) use of opiate analgesic; Z79.810 Long term (current) use of selective estrogen receptor modulators (SERMs); Z79.52 Long term (current) use of systemic steroids
CPT/HCPCS: 99223-AI; 99232-AI; 99239; C1751; C1892; G0378; J0696; J1650; J2930; J7512

== ENCOUNTER 2020-11-06 11:00 | Outpatient (RCR) | payer MEDICARE, MEDICAID ==
[2020-08-14 11:07] VITALS: BP 135/90; PULSE 121; TEMP 98.9
[2020-08-14 11:22] LABS: MEAN CELL VOLUME 85 fl (80.0-100.0); MEAN CORPUSCULAR HGB CONC 30 g/dl (33.0-37.0); MEAN PLATELET VOLUME 9.5 fl (7.4-10.4); PLATELET COUNT 519 K/mm3 (130-400); REDCELL DISTRIBUTION WIDTH-CV 18.3 % (11.5-14.5)
[2020-08-14 11:23] LABS: HEMOGLOBIN 9.9 g/dl (13.5-18.0); MEAN CORPUSCULAR HEMOGLOBIN 25 pg (27.0-31.0)
[2020-08-14 11:27] LABS: ALBUMIN 3.9 gm/dL (3.5-5.0); BILIRUBIN,TOTAL 0.2 mg/dL (0.0-1.0); CALCIUM 9.7 mg/dL (8.4-10.2); CREATININE, serum 0.96 (0.66-1.25); POTASSIUM 3.7 mmol/L (3.4-5.0); TOTAL PROTEIN 7.8 gm/dL (6.4-8.2)
[2020-08-14 12:12] LABS: LYMPHOCYTE 4 % (20.0-51.0); NEUTROPHILS 94 % (42.0-75.2)
[2020-08-14 12:14] LABS: ANISOCYTOSIS 2+; HYPOCHROMIA 3+; PLATELET ESTIMATE INCREASED (NORMAL)
[2020-08-21 11:59] VITALS: BP 150/113; PULSE 130; TEMP 98.7
[2020-08-28 10:53] VITALS: BP 124/91; PULSE 115; TEMP 98.7
--- NOTE | 2020-08-28 11:10 | NUR ---
Here for cares. left upper arm PICC sterile dressing change done. flushed PICc with 60 ml normal saline. flushes easily. unable to obtain a blood return. chest x ray done to confirm tip location. no kinks noted. patient to return next week for cares. EU staff will obtain an order for cath aung and if needed to instill next week. patient has an appointment today at 1 pm. voiced understanding of instructions.
[2020-09-04 10:13] VITALS: BP 134/100; PULSE 115; TEMP 98.5
[2020-09-12 10:39] LABS: MEAN CELL VOLUME 84 fl (80.0-100.0); MEAN CORPUSCULAR HGB CONC 29 g/dl (33.0-37.0); MEAN PLATELET VOLUME 9.8 fl (7.4-10.4); PLATELET COUNT 335 K/mm3 (130-400); RED BLOOD COUNT 3.91 M/mm3 (4.20-5.60); REDCELL DISTRIBUTION WIDTH-CV 18.8 % (11.5-14.5)
[2020-09-12 10:40] LABS: HEMOGLOBIN 9.5 g/dl (13.5-18.0); MEAN CORPUSCULAR HEMOGLOBIN 24 pg (27.0-31.0)
[2020-09-12 10:50] LABS: ALANINE AMINOTRANSFERASE 17 U/L (4-49); ALBUMIN 3.8 gm/dL (3.5-5.0); ALKALINE PHOSPHATASE 82 U/L (50-136); ANION GAP 8 mmol/L (7-16); AST,SGOT 21 U/L (15-37); BILIRUBIN,TOTAL < 0.1 mg/dL (0.0-1.0); BLOOD UREA NITROGEN 20 mg/dL (9-20); CALCIUM 9.9 mg/dL (8.4-10.2); CARBON DIOXIDE 34 mmol/L (22-30); CHLORIDE 97 mmol/L (98-107); CREATININE, serum 0.83 (0.66-1.25); GLUCOSE 134 mg/dL (74-106); LACTATE DEHYDROGENASE 410 U/L (313-618); POTASSIUM 3.8 mmol/L (3.4-5.0); SODIUM 139 mmol/L (137-145); TOTAL PROTEIN 7.4 gm/dL (6.4-8.2)
[2020-09-12 11:03] LABS: ANISOCYTOSIS 3+; HYPOCHROMIA 4+; LYMPHOCYTE 1 % (20.0-51.0); NEUTROPHILS 86 % (42.0-75.2); PLATELET ESTIMATE NORMAL (NORMAL)
[2020-09-12 12:10] VITALS: BP 169/103; PULSE 122; TEMP 98.3
[2020-09-18 11:04] VITALS: BP 134/91; PULSE 119; TEMP 98.6
[2020-09-25 10:38] VITALS: BP 112/82; PULSE 109; TEMP 97.7
--- NOTE | 2020-10-02 13:45 | NUR ---
Here for PICC cares. PICC intact left upper arm with dressing almost off. Patient reported "it got wet during a shower." Left upper arm PICC dressing change done with sterile technique with site cleansed with chloraprep x 1, chlorhexidine impregnated disk applied, skin prep, stat lock, and tegaderm applied. no signs or symptoms of IV complications noted. no concerns voiced. to return next week for cares. voiced understanding of instructions.
--- NOTE | 2020-10-04 17:50 | NUR ---
This nurse called to ER for pt.Pt arrived to ER with PICC line out 13cm.Per pt he pulled dressing upon waking.Blood return obtained when flushing.Attempted to call [facility] at home for direction.Reviewed options with Dr barcenas in ED.PICC line site cleansed and new dressing applied and line secured.Pt scheduled in Express tomorrow morning with ANGELITA Kennedy to evaluate if line needs exchanged.
[2020-10-09 11:13] VITALS: BP 128/90; PULSE 119; TEMP 98.4
[2020-10-16 13:16] VITALS: BP 136/95; PULSE 116; TEMP 98.8
[2020-10-16 13:17] LABS: HEMOGLOBIN 10.3 g/dl (13.5-18.0); MEAN CELL VOLUME 87 fl (80.0-100.0); MEAN CORPUSCULAR HEMOGLOBIN 25 pg (27.0-31.0); MEAN CORPUSCULAR HGB CONC 29 g/dl (33.0-37.0); MEAN PLATELET VOLUME 9.6 fl (7.4-10.4); PLATELET COUNT 238 K/mm3 (130-400); RED BLOOD COUNT 4.05 M/mm3 (4.20-5.60); REDCELL DISTRIBUTION WIDTH-CV 20.3 % (11.5-14.5)
[2020-10-16 13:18] LABS: HEMATOCRIT 35.2 % (42.0-52.0)
[2020-10-16 13:26] LABS: ALBUMIN 3.8 gm/dL (3.5-5.0); BILIRUBIN,TOTAL 0.4 mg/dL (0.0-1.0); CALCIUM 9.3 mg/dL (8.4-10.2); CREATININE, serum 0.89 (0.66-1.25); POTASSIUM 3.7 mmol/L (3.4-5.0); TOTAL PROTEIN 6.9 gm/dL (6.4-8.2)
[2020-10-16 13:36] LABS: ANISOCYTOSIS 3+; HYPOCHROMIA 3+; LYMPHOCYTE 6 % (20.0-51.0); NEUTROPHILS 93 % (42.0-75.2); PLATELET ESTIMATE NORMAL (NORMAL)
[2020-10-25 11:01] VITALS: BP 123/89; PULSE 111; TEMP 98.7
[2020-10-25 11:12] LABS: MEAN CELL VOLUME 86 fl (80.0-100.0); MEAN CORPUSCULAR HGB CONC 29 g/dl (33.0-37.0); MEAN PLATELET VOLUME 9.7 fl (7.4-10.4); PLATELET COUNT 283 K/mm3 (130-400); REDCELL DISTRIBUTION WIDTH-CV 18.9 % (11.5-14.5)
[2020-10-25 11:18] LABS: HEMATOCRIT 33.7 % (42.0-52.0); HEMOGLOBIN 9.8 g/dl (13.5-18.0); MEAN CORPUSCULAR HEMOGLOBIN 25 pg (27.0-31.0)
[2020-10-25 11:22] LABS: BILIRUBIN,TOTAL 0.4 mg/dL (0.0-1.0); CALCIUM 9.8 mg/dL (8.4-10.2); CREATININE, serum 0.98 (0.66-1.25); POTASSIUM 3.8 mmol/L (3.4-5.0); TOTAL PROTEIN 7.3 gm/dL (6.4-8.2)
[2020-10-25 11:33] LABS: EOSINOPHIL 2 % (0-4); LYMPHOCYTE 4 % (20.0-51.0); NEUTROPHILS 91 % (42.0-75.2)
[2020-10-25 11:35] LABS: ANISOCYTOSIS 2+; HYPOCHROMIA 3+; OVALOCYTES 1+
[2020-10-25 11:36] LABS: PLATELET ESTIMATE NORMAL (NORMAL)
--- NOTE | 2020-10-30 11:00 | NUR ---
Patient here for cares. PICC dressing almost not intact. Sterile dressing change done.
[2020-10-30 11:11] LABS: HEMOGLOBIN 10.1 g/dl (13.5-18.0); MEAN CELL VOLUME 87 fl (80.0-100.0); MEAN CORPUSCULAR HEMOGLOBIN 25 pg (27.0-31.0); MEAN CORPUSCULAR HGB CONC 29 g/dl (33.0-37.0); PLATELET COUNT 486 K/mm3 (130-400); REDCELL DISTRIBUTION WIDTH-CV 18.7 % (11.5-14.5)
[2020-10-30 11:16] LABS: HEMATOCRIT 34.8 % (42.0-52.0)
[2020-10-30 11:24] LABS: ALBUMIN 3.8 gm/dL (3.5-5.0); BILIRUBIN,TOTAL 0.2 mg/dL (0.0-1.0); CALCIUM 9.8 mg/dL (8.4-10.2); CREATININE, serum 1.03 (0.66-1.25); TOTAL PROTEIN 7.1 gm/dL (6.4-8.2)
[2020-10-30 11:27] LABS: POTASSIUM 2.9 mmol/L (3.4-5.0)
[2020-10-30 11:29] LABS: ANISOCYTOSIS 2+; BAND 1 % (0-10); LYMPHOCYTE 11 % (20.0-51.0); MICROCYTOSIS 1+; NEUTROPHILS 80 % (42.0-75.2); OVALOCYTES 1+; PLATELET ESTIMATE NORMAL (NORMAL); SCHISTOCYTES 1+
[2020-10-30 11:42] VITALS: BP 113/93; PULSE 110; TEMP 98.2
[~2020-11-06] VITALS: Ht 167.6 cm; Wt 82.4 kg
[2020-11-06 10:50] VITALS: BP 130/94; PULSE 110; TEMP 98.4
[2020-11-06 10:55] LABS: MEAN CELL VOLUME 87 fl (80.0-100.0); MEAN CORPUSCULAR HGB CONC 29 g/dl (33.0-37.0); MEAN PLATELET VOLUME 9.8 fl (7.4-10.4); PLATELET COUNT 391 K/mm3 (130-400); RED BLOOD COUNT 3.73 M/mm3 (4.20-5.60)
[~2020-11-06 11:00] MED LIST changes: +ATIVAN 1MG T1 MG/TAB PO; +BACTRIM DS 8001 TAB PO; +FERRO-TIME325 MG PO; +K-DUR20 MEQ PO; +LASIX 20MG TABL20 MG PO; +MONODOX100 PO; +MORPHINE 1515 MG/TAB PO; +MS CONTIN 115 MG/TAB PO
[2020-11-06 11:01] LABS: ALBUMIN 3.7 gm/dL (3.5-5.0); BILIRUBIN,TOTAL 0.1 mg/dL (0.0-1.0); CALCIUM 9.4 mg/dL (8.4-10.2); CREATININE, serum 1.05 (0.66-1.25); POTASSIUM 3.2 mmol/L (3.4-5.0); TOTAL PROTEIN 6.7 gm/dL (6.4-8.2)
[2020-11-06 11:02] LABS: HEMATOCRIT 32.3 % (42.0-52.0); HEMOGLOBIN 9.4 g/dl (13.5-18.0); MEAN CORPUSCULAR HEMOGLOBIN 25 pg (27.0-31.0)
[2020-11-06 11:23] LABS: LYMPHOCYTE 4 % (20.0-51.0); NEUTROPHILS 87 % (42.0-75.2)
[2020-11-06 11:25] LABS: ANISOCYTOSIS 2+; HYPOCHROMIA 3+; PLATELET ESTIMATE NORMAL (NORMAL)
== END 2020-11-12 ==
LOC: EUO
PROVIDERS: Internal Medicine Medical Oncology
DX: C34.01 Malignant neoplasm of right main bronchus (principal); C78.01 Secondary malignant neoplasm of right lung; C78.02 Secondary malignant neoplasm of left lung; J44.9 Chronic obstructive pulmonary disease, unspecified; J98.11 Atelectasis
CPT/HCPCS: J3010

== ENCOUNTER 2020-11-20 15:10 | Observation (INO) | payer MEDICARE, MEDICAID ==
[~2020-11-20] VITALS: Ht 167.6 cm; Wt 82.2 kg
[2020-11-20 15:58] LABS: BASO % 0.1 % (0.0-2.0); EOS % 0.1 % (0-4.0); GRAN # 8.1 (1.4-6.5); GRAN % 83.9 % (42.2-75.2); LYMPH # 0.4 (1.2-3.4); LYMPH % 4.5 % (20.0-51.0); MEAN CELL VOLUME 87 fl (80.0-100.0); MEAN CORPUSCULAR HGB CONC 29 g/dl (33.0-37.0); MONO # 1.1 (0.1-0.6); MONO % 10.8 % (1.7-9.3); PLATELET COUNT 250 K/mm3 (130-400); RED BLOOD COUNT 3.79 M/mm3 (4.20-5.60); REDCELL DISTRIBUTION WIDTH-CV 18.9 % (11.5-14.5)
[2020-11-20 16:08] LABS: ALBUMIN 3.6 gm/dL (3.5-5.0); BILIRUBIN,TOTAL 0.4 mg/dL (0.0-1.0); CALCIUM 9.7 mg/dL (8.4-10.2); CREATININE, serum 0.9 (0.66-1.25); HEMATOCRIT 32.9 % (42.0-52.0); HEMOGLOBIN 9.4 g/dl (13.5-18.0); MEAN CORPUSCULAR HEMOGLOBIN 25 pg (27.0-31.0); POTASSIUM 3.8 mmol/L (3.4-5.0); TOTAL PROTEIN 6.8 gm/dL (6.4-8.2)
[2020-11-20 16:21] LABS: TROPONIN-I 0.021 ng/mL (0.000-0.035)
--- NOTE | 2020-11-20 21:52 | NUR ---
Arrived on unit, SHOB noted on exertion, up to bsc, PICC line noted to L upper arm w/dressing c/d/i, O2@3L per NC, talkative, denies pain at this time, updated on plan of care.
[2020-11-20] MEDS ORDERED: PULMICORT0.5 MG/2 M (22:05)
[2020-11-20 22:28] VITALS: BP 134/91; PULSE 103; TEMP 98
[2020-11-20 23:32] VITALS: BP 128/84; PULSE 105; TEMP 98.1
--- NOTE | 2020-11-21 01:09 | NUR ---
Resting quietly, O2@3L per NC in use, VS stable, updated on plan of care, telemetry in use, call lizarraga w/i reach, continent of bowel and bladder, no c/o pain, SHOB noted on exertion.
[2020-11-21 03:58] VITALS: BP 134/93; PULSE 102; TEMP 98.2
--- NOTE | 2020-11-21 05:34 | NUR ---
Patient partcially pulled out PICC line during his sleep, this nurse pulled PICC line with tip intact, tissue surrounding insertion site soft w/o s/s of infiltration, call placed to Carla WONG notified- see new orders.
--- NOTE | 2020-11-21 08:16 | NUR ---
Patient is very pleasant this morning. This RN asked if he was experiencing any pain or SOB, and the patient replied, "Always". Prior to entering the room the patient had been given a breathing treatment by RT. This RN always administered the patient's prescribed/scheduled pain medications.
[2020-11-21 08:40] VITALS: BP 131/95; PULSE 110; TEMP 98.4
[2020-11-21 11:42] VITALS: BP 127/91; PULSE 117
--- NOTE | 2020-11-21 11:54 | NUR ---
First visit from the pallet sorter. Patient was asleep, pallet sorter prayed for the patient while standing outside their door.
[2020-11-21 13:59] LABS: GRAN # 7.3 (1.4-6.5); GRAN % 88.5 % (42.2-75.2); LYMPH # 0.2 (1.2-3.4); LYMPH % 2.9 % (20.0-51.0); MEAN CELL VOLUME 87 fl (80.0-100.0); MEAN CORPUSCULAR HGB CONC 28 g/dl (33.0-37.0); MEAN PLATELET VOLUME 10.9 fl (7.4-10.4); MONO # 0.7 (0.1-0.6); PLATELET COUNT 253 K/mm3 (130-400); RED BLOOD COUNT 3.77 M/mm3 (4.20-5.60); REDCELL DISTRIBUTION WIDTH-CV 18.4 % (11.5-14.5)
[2020-11-21 14:00] LABS: HEMATOCRIT 32.7 % (42.0-52.0); HEMOGLOBIN 9.3 g/dl (13.5-18.0); MEAN CORPUSCULAR HEMOGLOBIN 25 pg (27.0-31.0)
[2020-11-21 14:08] LABS: CALCIUM 9.4 mg/dL (8.4-10.2); CREATININE, serum 0.88 (0.66-1.25); POTASSIUM 3.6 mmol/L (3.4-5.0)
[2020-11-21 14:19] LABS: TROPONIN-I 0.015 ng/mL (0.000-0.035)
[2020-11-21 15:52] VITALS: BP 126/70; PULSE 124; TEMP 98.3
--- NOTE | 2020-11-21 16:33 | NUR ---
Special [employer] Communications Sergeant met with patient to discuss discharge planning. Patient lives in [place] with his partner, Daphne (ph#[phone]) [address] sees Dr. Bethea for primary care. Patient obtains medications from [facility] with no difficulties. Patient has a cane, walker, and wheelchair at home. Patient reports he mostly uses his cane. Patient has home oxygen through [employer]. Patient reports he is normally independent with ADLS. Patient plans on returning home upon discharge. Patient has Advance Directives which designate Daphne as DPOA-HC. SW reviewed PT recommendation for Home Health. Patient is agreeable to this and would like to review the options. SW provided medicare.gov list of agencies that serve [place]. Discharge Plan: Home with Home Health, GAIL will follow up on choice.
[2020-11-21 19:48] VITALS: BP 133/95; PULSE 111; TEMP 98.2
[2020-11-21 23:43] VITALS: BP 133/67; BP 137/86; PULSE 102; PULSE 82; TEMP 97.5; TEMP 99.3
[2020-11-22 05:56] VITALS: BP 134/85; PULSE 106; TEMP 98.3
[2020-11-22 09:20] VITALS: BP 139/86; PULSE 113; TEMP 97.6
[2020-11-22 09:39] LABS: INR 1.1 (0.8-3.0); PROTHROMBIN TIME 12.4 SECONDS (9.7-12.8)
[2020-11-22 13:00] VITALS: BP 131/82; PULSE 112; TEMP 98.3
--- NOTE | 2020-11-22 14:25 | NUR ---
I met with Erasto and Daphne at bedside to talk about goals of care. Erasto is very clear from the beginning of our talk that if he has any chance for life--he wants to take it. He and Daphne have talked about what would be the line that he would not want any further treatment and she feels able to make that decision if it presents itself. He reports that people have told him that he didn't have long to live for several years and yet he is still here. He and Daphne live in a trailer and are very comfortable there. He has a recliner that is able to lie flat that he often sleeps in. He is still hoping to go [place] the [place] and to go out fishing when his breathing gets a little easier. He would not want to go to a snf he states and clearly states he is not ready for hospice services. We talked about making life choices and how some choices will allow him to stay at home and some will require placement. Being at home is very important to him. he reports and Daphne supports his report, that Dr Bonlila had told them that there was amother drug that he could take to help fight the cancer and they are hoping to discuss this with Dr Bonilla on ThursdayNovember 26 at their appt. he reports that his pleurx had stopped draining fluid and that was the reason it was removed. He does understand that he may have a thoracentesis tomorrow if Dr Vicente finds enough fluid in the effusion to make it worth draining. "It is a matter of risks and benefits". They have used [facility] in the past and would choose to use them again if they need home health. They also have begun the paperwork process of getting assistance from [employer].
--- NOTE | 2020-11-22 15:15 | NUR ---
A Palliative Care Consult was ordered. Hellen Wolfe staffed with this Lag Screwer after she met with the patient and his life partner, Daphne. Per Hellen the patient states that Dr. Bonilla has a new treatment for him and they have an appointment on Thursday, 11/27. GALI met with the patient and Daphne to revisit the discharge plan. Daphne reports they have [facility] on board for services. They have not used services as of yet but will begin using them as they need them. They reviewed Medicare.gov's list of agencies. They chose [facility]. Referral faxed. Awaiting screen. *Discharge disposition at this time: Home with Home Health *Discharge disposition
--- NOTE | 2020-11-22 16:25 | NUR ---
Daphne with [facility] contacted this Credit Reporting Clerk. She states they can accept the patient for home health services.
[2020-11-22 16:57] VITALS: BP 147/89; PULSE 99; TEMP 98
--- NOTE | 2020-11-22 17:49 | NUR ---
This patient has done well today and has not had any complaints. When this RN went to do his 1600 VS, the patient said he had made a mess in the bathroom. There was a small amount of stool on the floor from where he did not make it to the commode in time. The patient was slightly upset about the situation and very apologetic. This RN reassured the patient that he did nothing wrong and that cleaning the bathroom up was not a problem. This relieved the patient and he was back to his joking mood. The patient will be having a thoracentesis tomorrow at [address] Vicente. The patient is currently resting in bed.
[2020-11-22 19:39] VITALS: BP 140/89; PULSE 106; TEMP 97.6
[2020-11-22 23:18] VITALS: BP 139/91; PULSE 104; TEMP 98
--- NOTE | 2020-11-22 23:20 | NUR ---
MR. Maurer has been good. he rated his pain 6/10. Morphine schedule was given. Will continue to monitor.
[2020-11-23 05:26] VITALS: BP 145/102; PULSE 102; TEMP 97.8
[2020-11-23 06:57] LABS: MEAN CELL VOLUME 89 fl (80.0-100.0); MEAN CORPUSCULAR HGB CONC 28 g/dl (33.0-37.0); MEAN PLATELET VOLUME 11.6 fl (7.4-10.4); PLATELET COUNT 273 K/mm3 (130-400); RED BLOOD COUNT 3.72 M/mm3 (4.20-5.60); REDCELL DISTRIBUTION WIDTH-CV 18.4 % (11.5-14.5)
[2020-11-23 07:01] LABS: HEMATOCRIT 33.2 % (42.0-52.0); HEMOGLOBIN 9.4 g/dl (13.5-18.0); MEAN CORPUSCULAR HEMOGLOBIN 25 pg (27.0-31.0)
[2020-11-23 07:11] LABS: CALCIUM 9.5 mg/dL (8.4-10.2); CREATININE, serum 0.88 (0.66-1.25); POTASSIUM 3.6 mmol/L (3.4-5.0)
--- NOTE | 2020-11-23 07:31 | NUR ---
Patient is currently recieving a breathing treatment from RT. He is sitting up in bed and tolerating the treatment well. This RN is going to administer morning meds and get the consent signed for the patient's thoracentesis to be performed by Dr. Vicente at approx. 0830.
[2020-11-23 09:05] VITALS: BP 135/88; PULSE 100; TEMP 98.2
[2020-11-23] MEDS ORDERED: PREDNISONE10 MG PO (10:17)
[2020-11-23] MEDS ORDERED: MONODOX100 PO (10:19)
--- NOTE | 2020-11-23 10:45 | NUR ---
The patient to discharge home today, 11/23 with his life partner, Daphne and [facility]. PT/Nursing services. Discharge orders faxed. SW met with the patient he was in agreeance with the plan. There are no additional needs.
[2020-11-23 12:08] VITALS: BP 128/80; PULSE 104; TEMP 98.5
--- NOTE | 2020-11-23 13:22 | NUR ---
Patient was sitting up, dressed, and ready to leave upon entering the room. This RN went over all the discharge information with the patient. At approx. 1310 this RN discharged the patient and wheeled him out of the hospital. The patient did very well today and had no complaints.
== END 2020-11-23 13:10 | disposition home or self-care (01) ==
LOC: COL.ER 15:10 → MEDICAL 19:15
PROVIDERS: Internal Medicine Pulmonary Disease; Physician Assistant; Student in an Organized Health Care Education/Training Program; ADMIT Family Medicine
DX: J44.1 Chronic obstructive pulmonary disease with (acute) exacerbation (principal); C34.91 Malignant neoplasm of unspecified part of right bronchus or lung; J91.8 Pleural effusion in other conditions classified elsewhere; D63.0 Anemia in neoplastic disease; J96.22 Acute and chronic respiratory failure with hypercapnia; R53.1 Weakness; I42.0 Dilated cardiomyopathy; G62.9 Polyneuropathy, unspecified; I10 Essential (primary) hypertension; K21.9 Gastro-esophageal reflux disease without esophagitis; F32.9 Major depressive disorder, single episode, unspecified; Z87.891 Personal history of nicotine dependence; Z79.82 Long term (current) use of aspirin; Z92.21 Personal history of antineoplastic chemotherapy
CPT/HCPCS: 99223-AI; 99232-AI; C1751; G0378; J0696; J1650; J1940; J2543; J2920; J2930; J7030; J7512; Q9967

== ENCOUNTER 2020-12-04 11:00 | Outpatient (RCR) | payer MEDICARE, MEDICAID ==
[2020-11-13 10:28] VITALS: BP 157/103; PULSE 118; TEMP 98.2
--- NOTE | 2020-11-13 10:40 | NUR ---
Patient here for cares. PICC dressing change. dressing hard to remove. catheter pulled out 1 cm. will continue to monitor.
[2020-11-29 11:00] LABS: MEAN CELL VOLUME 88 fl (80.0-100.0); MEAN CORPUSCULAR HGB CONC 29 g/dl (33.0-37.0); MEAN PLATELET VOLUME 10.4 fl (7.4-10.4); PLATELET COUNT 357 K/mm3 (130-400); RED BLOOD COUNT 3.88 M/mm3 (4.20-5.60); REDCELL DISTRIBUTION WIDTH-CV 18.1 % (11.5-14.5)
[2020-11-29 11:01] LABS: HEMATOCRIT 34.1 % (42.0-52.0); HEMOGLOBIN 9.8 g/dl (13.5-18.0); MEAN CORPUSCULAR HEMOGLOBIN 25 pg (27.0-31.0)
[2020-11-29 11:02] VITALS: BP 119/86; PULSE 110; TEMP 97.9
[2020-11-29 11:05] LABS: ALBUMIN 3.6 gm/dL (3.5-5.0); BILIRUBIN,TOTAL 0.2 mg/dL (0.0-1.0); CALCIUM 9.7 mg/dL (8.4-10.2); CREATININE, serum 1.1 (0.66-1.25); POTASSIUM 3.7 mmol/L (3.4-5.0); TOTAL PROTEIN 6.7 gm/dL (6.4-8.2)
[2020-11-29 11:20] LABS: ANISOCYTOSIS 3+; EOSINOPHIL 2 % (0-4); HYPOCHROMIA 4+; LYMPHOCYTE 7 % (20.0-51.0); NEUTROPHILS 83 % (42.0-75.2); PLATELET ESTIMATE NORMAL (NORMAL)
[~2020-12-04] VITALS: Ht 167.6 cm; Wt 87.5 kg
[~2020-12-04 11:00] MED LIST changes: +PULMICORT0.5 MG/2 M
[2020-12-04 13:50] VITALS: BP 107/80; PULSE 109; TEMP 98.5
[2020-12-04 14:06] LABS: ALBUMIN 3.7 gm/dL (3.5-5.0); BILIRUBIN,TOTAL 0.2 mg/dL (0.0-1.0); CALCIUM 9.9 mg/dL (8.4-10.2); CREATININE, serum 0.86 (0.66-1.25); POTASSIUM 3.6 mmol/L (3.4-5.0); TOTAL PROTEIN 6.7 gm/dL (6.4-8.2)
[2020-12-04 14:28] LABS: ANISOCYTOSIS 2+; BAND 1 % (0-10); EOSINOPHIL 1 % (0-4); LYMPHOCYTE 7 % (20.0-51.0); MYELOCYTE 1 % (0-0); NEUTROPHILS 83 % (42.0-75.2); PLATELET ESTIMATE NORMAL (NORMAL)
[2020-12-04 14:29] LABS: HYPOCHROMIA 2+; OVALOCYTES 1+
[2020-12-04 14:38] LABS: HEMATOCRIT 33.9 % (42.0-52.0); HEMOGLOBIN 9.5 g/dl (13.5-18.0); MEAN CELL VOLUME 88 fl (80.0-100.0); MEAN CORPUSCULAR HEMOGLOBIN 25 pg (27.0-31.0); MEAN CORPUSCULAR HGB CONC 28 g/dl (33.0-37.0); MEAN PLATELET VOLUME 11.1 fl (7.4-10.4); PLATELET COUNT 350 K/mm3 (130-400); RED BLOOD COUNT 3.86 M/mm3 (4.20-5.60); REDCELL DISTRIBUTION WIDTH-CV 19.2 % (11.5-14.5)
[2020-12-11] MEDS ORDERED: PREDNISONE10 MG PO (14:01)
--- NOTE | 2020-12-12 15:18 | NUR ---
Pt is currently inpt
== END 2020-12-12 15:18 | disposition still patient (30) ==
LOC: EUO 11:00
PROVIDERS: Internal Medicine Medical Oncology
DX: C34.01 Malignant neoplasm of right main bronchus (principal); C78.01 Secondary malignant neoplasm of right lung; C78.02 Secondary malignant neoplasm of left lung

== ENCOUNTER 2020-12-11 08:17 | Inpatient (IN) | payer MEDICARE, MEDICAID ==
[~2020-12-11] VITALS: Ht 167.6 cm; Wt 87.3 kg
[2020-12-11 09:45] LABS: ARTERIAL BLD GAS O2 SATURATION 97.4 % (92-100); ARTERIAL BLD GAS TCO2 CT 39.3; ARTERIAL BLOOD GAS BASE EXCESS 12.6 (-2-2); ARTERIAL BLOOD GAS HCO3 37.7 meq/L (22-26); ARTERIAL BLOOD GAS PO2 89.8 mmHg (80-100); ARTERIAL BLOOD GAS pH 7.48 (7.35-7.45)
[2020-12-11 09:54] LABS: ALBUMIN 3.6 gm/dL (3.5-5.0); BILIRUBIN,TOTAL 0.4 mg/dL (0.0-1.0); CALCIUM 9.5 mg/dL (8.4-10.2); CREATININE, serum 0.87 (0.66-1.25); POTASSIUM 3.3 mmol/L (3.4-5.0); TOTAL PROTEIN 6.6 gm/dL (6.4-8.2)
[2020-12-11 10:06] LABS: BASO % 0.1 % (0.0-2.0); EOS # 0.1 (0.0-0.7); EOS % 0.8 % (0-4.0); GRAN # 7.9 (1.4-6.5); GRAN % 79.1 % (42.2-75.2); HEMOGLOBIN 8.8 g/dl (13.5-18.0); LYMPH # 0.7 (1.2-3.4); LYMPH % 7.3 % (20.0-51.0); MEAN CELL VOLUME 89 fl (80.0-100.0); MEAN CORPUSCULAR HEMOGLOBIN 25 pg (27.0-31.0); MEAN CORPUSCULAR HGB CONC 28 g/dl (33.0-37.0); MEAN PLATELET VOLUME 11.3 fl (7.4-10.4); MONO # 1.2 (0.1-0.6); PLATELET COUNT 201 K/mm3 (130-400); RED BLOOD COUNT 3.47 M/mm3 (4.20-5.60); REDCELL DISTRIBUTION WIDTH-CV 19.1 % (11.5-14.5)
[2020-12-11 10:17] LABS: C-REACTIVE PROTEIN 18.6 mg/dL (0.0-0.9)
[2020-12-11 13:40] VITALS: BP 124/93; PULSE 107; TEMP 98.7
[2020-12-11] MEDS ORDERED: PREDNISONE10 MG PO (14:01)
--- NOTE | 2020-12-11 14:31 | NUR ---
ED report stated caps were changed today.
--- NOTE | 2020-12-11 14:44 | NUR ---
I talked with both Erasto and Daphne at bedside. Erasto reports that "It has happened again". Daphne reports that once he finished his antibiotics, he began to get worse again. He was supposed to get a CT scan with contrast of his chest today but instead came to the hospital due to worsening SOA. Erasto had told Regina WONG that his oncologist had "let him go" and no further treatment was planned. I placed a call to Dr Bonilla's office to clarify plan. Magdalena, his nurse, advised that they are waiting on CT scan to review and then can discuss further choices of treatment that are available. Pt has not been using his CPAP as it was recalled and no replacement has been recieved. Pt is very pleased with the home health agency that they have been using.
--- NOTE | 2020-12-11 15:51 | NUR ---
Pt admin assessment performed, med reconciliation documented. Pt had coarse crackles in all lobes bilaterally, noted to be worse on right side. Pt has bruise noted on left forearm. Pt has clubbing of fingernails noted in bilateral upper extremities.
--- NOTE | 2020-12-11 15:53 | NUR ---
Pt reports bloating in stomach at this time.
--- NOTE | 2020-12-11 16:06 | NUR ---
Pt admitted this shift, alert and oriented. Pt reported pain, constant and was managed with PRN pain medication. Pt updated on plan of care and educated on start of PO antibiotics. Pt given potassium this shift per protocol. Pt had bilateral edema 2+ in lower extremities. Pt's visited this shift and was updated on plan of care. Pt able to ambulate independently within room. Free from injury this shift.
[2020-12-11 17:42] VITALS: BP 137/93; PULSE 110; TEMP 98.3
--- NOTE | 2020-12-11 18:33 | NUR ---
Received call from [facility] earlier in shift, left number to call back ph# ([phone]). Called Home health at this time, gave update on patient. On license of [facility] request for fax of H&P at this time. ).
--- NOTE | 2020-12-11 20:30 | NUR ---
Initial shift assessment done- sitting on edge of bed- still eating a few bites of his supper--talking on the phone with family--, night meds given, o2 at 3L/nc, does have SOB with exertion. Has BSC at side of bed per pts request--understands to call for assistance when needed. Alert/oriented- no further requests at this time.
[2020-12-11 21:03] VITALS: BP 121/82; PULSE 111; TEMP 99.1
[2020-12-12 00:11] VITALS: BP 125/84; PULSE 105; TEMP 98.5
[2020-12-12 00:23] LABS: COLLECTION METHOD CLEAN CATCH
[2020-12-12 00:29] LABS: PH 8 (5-8); SQUAMOUS EPITHELIAL None Seen /hpf; URINE APPEARANCE Clear; URINE BACTERIA None Seen /hpf; URINE BILIRUBIN Negative (NEGATIVE); URINE BLOOD Negative (NEGATIVE); URINE COLOR Yellow; URINE GLUCOSE 3+ (NEGATIVE); URINE KETONE Negative (NEGATIVE); URINE LEUKOCYTE ESTERASE Negative (NEGATIVE); URINE NITRATE Negative (NEGATIVE); URINE PROTEIN(semi-quant) Negative (NEGATIVE); URINE RBC 0-2 /hpf; URINE UROBILINOGEN Negative (NEGATIVE)
[2020-12-12 04:23] VITALS: BP 136/93; PULSE 106; TEMP 98.7
--- NOTE | 2020-12-12 05:37 | NUR ---
Quiet night-- VSS, was medicated for pain 3 times during the shift--pt usually rates his pain as constant type gurinder to arms/legs/back. very plesant- did drink a boost this morning
[2020-12-12 06:51] LABS: MEAN CELL VOLUME 89 fl (80.0-100.0); MEAN CORPUSCULAR HGB CONC 29 g/dl (33.0-37.0); MEAN PLATELET VOLUME 11.5 fl (7.4-10.4); PLATELET COUNT 229 K/mm3 (130-400); RED BLOOD COUNT 3.66 M/mm3 (4.20-5.60); REDCELL DISTRIBUTION WIDTH-CV 18.4 % (11.5-14.5)
[2020-12-12 06:57] LABS: HEMATOCRIT 32.7 % (42.0-52.0); HEMOGLOBIN 9.4 g/dl (13.5-18.0); MEAN CORPUSCULAR HEMOGLOBIN 26 pg (27.0-31.0)
[2020-12-12 07:08] LABS: CALCIUM 9.7 mg/dL (8.4-10.2); CREATININE, serum 0.72 (0.66-1.25); MAGNESIUM 1.6 mg/dL (1.6-2.3); POTASSIUM 3.7 mmol/L (3.4-5.0)
[2020-12-12 08:41] VITALS: BP 135/93; PULSE 111; TEMP 97.7
--- NOTE | 2020-12-12 09:00 | NUR ---
Assessment completed, alert/oriented, vital signs stable, reports "normal" pain level and tolerable at this, scheduled pain meds given, lungs diminished, patient gets SOA easily with exertion, heart RRR/distal pulses are palpable, BLE edema noted, patient denies other needs at this time
--- NOTE | 2020-12-12 10:40 | NUR ---
Initial visit; Patient thanked String Cutter for looking in on him and offering comfort and prayer. String Cutter will follow up.
[2020-12-12 11:40] VITALS: BP 118/39; PULSE 108; TEMP 97.9
[2020-12-12 15:28] VITALS: BP 126/86; PULSE 105; TEMP 97.7
--- NOTE | 2020-12-12 15:59 | NUR ---
I met with patient alone today. I asked about his code status and he replied "Keep me alive for as long as you can--do anything that you have to do!!!" He told me he had been joking around with someone earlier but he wants everything done--FULL CODE!
[2020-12-12 19:56] VITALS: BP 121/85; PULSE 110; TEMP 97.5
[2020-12-13 00:49] VITALS: BP 117/86; PULSE 103; TEMP 98.2
[2020-12-13 04:31] VITALS: BP 126/81; PULSE 106; TEMP 97.6
[2020-12-13 05:09] LABS: MEAN CELL VOLUME 87 fl (80.0-100.0); MEAN CORPUSCULAR HGB CONC 29 g/dl (33.0-37.0); MEAN PLATELET VOLUME 11.6 fl (7.4-10.4); PLATELET COUNT 243 K/mm3 (130-400); RED BLOOD COUNT 3.56 M/mm3 (4.20-5.60); REDCELL DISTRIBUTION WIDTH-CV 18.3 % (11.5-14.5)
[2020-12-13 05:12] LABS: HEMOGLOBIN 8.9 g/dl (13.5-18.0); MEAN CORPUSCULAR HEMOGLOBIN 25 pg (27.0-31.0)
[2020-12-13 05:15] LABS: CALCIUM 9.6 mg/dL (8.4-10.2); CREATININE, serum 0.83 (0.66-1.25); MAGNESIUM 1.9 mg/dL (1.6-2.3); POTASSIUM 3.3 mmol/L (3.4-5.0)
[2020-12-13 05:54] LABS: ANISOCYTOSIS 1+; BAND 2 % (0-10); HYPOCHROMIA 2+; LYMPHOCYTE 2 % (20.0-51.0); NEUTROPHILS 94 % (42.0-75.2)
[2020-12-13 05:55] LABS: PLATELET ESTIMATE NORMAL (NORMAL)
[2020-12-13 07:56] VITALS: BP 135/80; PULSE 103; TEMP 97.8
--- NOTE | 2020-12-13 09:00 | NUR ---
Scheduled medications given. Shift assessment preformed. VSS. Patient ambrose C/O generalized pain rated a 10/10. Scheduled morphine given. Patient is currently requiring 3L of O2 via nasal cannula. SOA upon exertion noted. All lung field diminished. PICC line assessed, no signs of complications noted. Patient denies any further needs at this time. Will continue to monitor. Call light in reach.
--- NOTE | 2020-12-13 09:36 | NUR ---
SW met with the patient to discuss discharge plan. The patient lives in [place] with his life partner, Daphne (ph#[phone]). He reports independence with ADLs and has a cane, walker, wheelchair, and home oxygen from [employer]. He states that he is normally on 3 liters. He receives home health services from [facility] out of [place]. [facility] contacted this SW and confirmed services. SW faxed updates to [facility]. The patient's PCP is Dr. Jeanna Bethea and he [facility]. He reports no difficulties obtaining his meds. The patient's DPOA-HC is in EMR and it designates Daphne. The patient plans to return home with his life partner upon discharge and resume home health services from [facility] upon discharge. A palliative care consult was ordered. The patient is wanting to stay a Full Code at this time. SW to continue to follow. *Discharge plan: home with life partner and home health*
--- NOTE | 2020-12-13 10:40 | NUR ---
Follow-up visit; Patient thanked for stopping in again to check on him. He states he is a little better today though hopes to be kept a little longer thank last time so he won't have to come back again so soon. wished him well and will continue to keep Erasto in her prayers.
[2020-12-13 10:56] LABS: IRON,SERUM 29 ug/dL (35-150)
[2020-12-13 11:05] LABS: TOTAL IRON BINDING CAPACITY 238 ug/dL (261-462)
[2020-12-13 11:38] VITALS: BP 133/86; PULSE 101; TEMP 97.6
[2020-12-13 16:28] VITALS: BP 129/85; PULSE 101; TEMP 97.7
--- NOTE | 2020-12-13 17:00 | NUR ---
Patient has had an ok day. VSS. PRN morphine given throughout shift to help with patient's generalized pain rated a 10/10. Patient is currenlty requiring 4 L of O2 via nasal cannula. Patient denies any further pain, discomfort, or further needs at this time. Will continue to monitor. Call light in reach.
[2020-12-13 19:33] VITALS: BP 128/92; PULSE 100; TEMP 97.8
--- NOTE | 2020-12-13 21:34 | NUR ---
Pt has been ok in pain as usual. Morphine PO was given. BS is 405.12 units PRN and schedule levemir was given. Will recheck BS in 2 hrs.
--- NOTE | 2020-12-14 01:02 | NUR ---
Pt BS went down to to 358. I called Devi she put an order of 10 units of novolog IV. Insulin was administered, BS was rechecked later. Bs went down to 136 and Devi was notified. Will continue to monitor.
[2020-12-14 04:54] VITALS: BP 123/82; PULSE 98; TEMP 98.5
[2020-12-14 07:05] LABS: MEAN CELL VOLUME 89 fl (80.0-100.0); MEAN CORPUSCULAR HGB CONC 28 g/dl (33.0-37.0); MEAN PLATELET VOLUME 11.8 fl (7.4-10.4); PLATELET COUNT 246 K/mm3 (130-400); RED BLOOD COUNT 3.46 M/mm3 (4.20-5.60); REDCELL DISTRIBUTION WIDTH-CV 18.5 % (11.5-14.5)
[2020-12-14 07:07] LABS: HEMATOCRIT 30.7 % (42.0-52.0); HEMOGLOBIN 8.7 g/dl (13.5-18.0); MEAN CORPUSCULAR HEMOGLOBIN 25 pg (27.0-31.0)
[2020-12-14 07:14] LABS: CALCIUM 9.4 mg/dL (8.4-10.2); CREATININE, serum 0.87 (0.66-1.25); POTASSIUM 3.8 mmol/L (3.4-5.0)
[2020-12-14 07:25] VITALS: BP 126/99; PULSE 95; TEMP 98.3
[2020-12-14 07:51] LABS: ANISOCYTOSIS 1+; BAND 1 % (0-10); LYMPHOCYTE 2 % (20.0-51.0); NEUTROPHILS 95 % (42.0-75.2); OVALOCYTES 1+; PLATELET ESTIMATE NORMAL (NORMAL)
--- NOTE | 2020-12-14 10:49 | NUR ---
Follow-up visit; Patient thanked Lining Folder for checking in with him today and continuing to offer him God's blessings.
[2020-12-14 12:05] VITALS: BP 114/75; PULSE 99; TEMP 98.6
[2020-12-14 15:47] VITALS: BP 135/77; PULSE 102; TEMP 98.7
--- NOTE | 2020-12-14 16:20 | NUR ---
Patient has had an ok day. PRN morphine given 2 times this shift for generalized pain rated a 10/10. Scheduled medications given. Patient is currently requiring 3 L of O2 via nasal cannula. BS have been high, with the last one being 348. Insulin given as ordered. Patient denies any further needs, questions, or concerns at this time. VSS. Will continue to monitor. Call light in reach.
[2020-12-14 19:17] VITALS: BP 144/95; PULSE 103; TEMP 97.8
--- NOTE | 2020-12-14 20:17 | NUR ---
PATIENTIS CALM IN THE ROOM.DUE MEDS GIVEN.ASSESSMENT DONE.NEPHROSTOMY TUBE FLUSHED WITH NS 10MLS.IVFS IN GOOD PROGRESS. PATIENT DENIES PAIN.NO OTHER NEEDS AT THIS TIME.
[2020-12-15 00:30] VITALS: BP 137/92; PULSE 101; TEMP 98
[2020-12-15 04:19] VITALS: BP 133/91; PULSE 103; TEMP 98.4
--- NOTE | 2020-12-15 05:58 | NUR ---
PATIENT HAD A GUILLERMINA.PATIENT WAS UP FOR MOST OF THE NIGHT.PAIN MEDS GIVEN PER ORDER.SAFETY MEASURES CONTINUED.NO OTHER NEEDS AT HIS TIME.
[2020-12-15 07:38] VITALS: BP 173/108; PULSE 105; TEMP 98.2
[2020-12-15 07:48] LABS: MEAN CELL VOLUME 89 fl (80.0-100.0); MEAN CORPUSCULAR HGB CONC 28 g/dl (33.0-37.0); MEAN PLATELET VOLUME 11.5 fl (7.4-10.4); PLATELET COUNT 272 K/mm3 (130-400); RED BLOOD COUNT 3.57 M/mm3 (4.20-5.60); REDCELL DISTRIBUTION WIDTH-CV 18.6 % (11.5-14.5)
[2020-12-15 07:51] LABS: HEMATOCRIT 31.8 % (42.0-52.0); HEMOGLOBIN 8.9 g/dl (13.5-18.0); MEAN CORPUSCULAR HEMOGLOBIN 25 pg (27.0-31.0)
[2020-12-15 07:52] LABS: CALCIUM 8.9 mg/dL (8.4-10.2); CREATININE, serum 0.85 (0.66-1.25); POTASSIUM 3.9 mmol/L (3.4-5.0)
--- NOTE | 2020-12-15 08:27 | NUR ---
Assessment completed, alert/oriented, vital signs stable, reports chronic gerneralized pain 12/01 this morning, scheduled and PRN pain meds given upon patient request, blood glucose are high/ likely secondary to IV steroids, lungs are coarse throughout, patient report "breathing is maybe a little easier today", patient gets very SOA with minimal exertion, heart RRR/distal pulses are palpable, morning meds givne, patient sitting up eating breakfast, denies other needs at this time
[2020-12-15 11:04] VITALS: BP 140/89; PULSE 108; TEMP 98.4
[2020-12-15 17:10] VITALS: BP 132/92; PULSE 98; TEMP 97.9
[2020-12-15 19:39] VITALS: BP 153/106; PULSE 110; TEMP 98.2
[2020-12-16 00:49] VITALS: BP 139/99; PULSE 99; TEMP 98.3
[2020-12-16 04:09] VITALS: BP 140/85; PULSE 103; TEMP 98.4
--- NOTE | 2020-12-16 04:20 | NUR ---
RN notice this morning that his left arm is swollen compare the night when RN did her assessment. Will pass it on.
--- NOTE | 2020-12-16 04:48 | NUR ---
Patient is awake and alert, oriented x4 independent to get up and use the commode. He is up most of the night sitting in bed. Got 2x of PRN pain meds for generalized pain he rated 7/10. He denies SOB. RN notice more swelling in his right arm. Patient doesn't bother about it but he said it feels more tight. Will pass it on this morning.
[2020-12-16 07:26] VITALS: BP 151/96; PULSE 105; TEMP 98.4
[2020-12-16 12:00] VITALS: BP 139/94; PULSE 107; TEMP 98.5
--- NOTE | 2020-12-16 12:00 | NUR ---
Assessment completed, alert/oriented, vital singns stable/ remains HTM, reports chronic generalized pains that are unchanged, fsbs remain significantly elevated/ insulin adjustments being made by provider, breathing/ respiratory status is unchanged and remains poor and very activity intolerant, lungs are coarse throuhgout within wheezing, heart RRR/ distal pulses are palpable, left arm is more swollen today/ PICC line is functioning normally and flushes fine and has good blood return, will continue to monitor, patient refusing PT/OT and is at this point in time still able to be indepdent within his room, we are awaiting pulm consult / eval, Vanc trough pending, significant other in the room, plan of care discussed, denies other needs at this time
[2020-12-16 16:25] VITALS: BP 154/96; PULSE 107; TEMP 98.4
[2020-12-16 19:34] VITALS: BP 156/99; PULSE 111; TEMP 98.5
--- NOTE | 2020-12-17 03:07 | NUR ---
Assessment completed, pt is alert and oriented. He still have generalized edema but looks better than yesterday. He still sounds wheezy I/E. He is getting breathing tx for that. He denies the use of pain meds only his scheduled one. He is independent to use the commode. He slept most of the night b/c usually he doesn't sleep at night. No complains noted, call light is within reach.
[2020-12-17 03:16] VITALS: BP 162/98; PULSE 106; TEMP 98.5
--- NOTE | 2020-12-17 06:50 | NUR ---
Report with CAROLINA Kaplan. Pt sitting up on side of bed, requesting pain medication if available, Rosaura agrees to bring a dose in to pt. No further needs reported. Call light in reach.
[2020-12-17 07:17] VITALS: BP 150/97; PULSE 103; TEMP 98.6
--- NOTE | 2020-12-17 09:04 | NUR ---
Assessment complete. Pt sitting up in bed, A&O x 4, reports previous dose of pain medication helped for a bit but there is still pain. Sched medications administered per orders, including pain medication. Breath sounds coarse throughout all lung nye with O2 via NC at 3 L/min. PICC line to left upper arm flushing without resistance but no blood return after 40 ml NS flushed and arm position changed. Pt reports that it doesn't "feel the same" when trying to draw back for blood return. AIV nurse called earlier. Provider notified and order for placement check received. No further needs reported. Call light in reach.
--- NOTE | 2020-12-17 09:37 | NUR ---
GAIL attended clinical rounds. The patient's life partner, Daphne, at bedside. The patient complains of continued swelling. The hospitalist ordered a doppler of his right upper extremity. GAIL then followed up with the patient and Daphne to review d/c plan. The patient reports that he still plans on returning home with Daphne and resuming home health services through [facility].
[2020-12-17 11:37] VITALS: BP 144/88; PULSE 111; TEMP 98.6
[2020-12-17 13:07] LABS: MEAN CELL VOLUME 89 fl (80.0-100.0); MEAN CORPUSCULAR HGB CONC 28 g/dl (33.0-37.0); MEAN PLATELET VOLUME 10.6 fl (7.4-10.4); PLATELET COUNT 288 K/mm3 (130-400); RED BLOOD COUNT 3.82 M/mm3 (4.20-5.60); REDCELL DISTRIBUTION WIDTH-CV 19.4 % (11.5-14.5)
[2020-12-17 13:08] LABS: HEMATOCRIT 33.8 % (42.0-52.0); HEMOGLOBIN 9.5 g/dl (13.5-18.0); MEAN CORPUSCULAR HEMOGLOBIN 25 pg (27.0-31.0)
--- NOTE | 2020-12-17 13:12 | NUR ---
AIV nurse finishing dressing on PICC exchange, good blood return and xray complete. CT notified of working PICC line now in place, will be up for testing when able. Pt reports recent dose of pain medication taking effect. No further needs reported. Call light in reach.
[2020-12-17 13:17] LABS: CALCIUM 8.8 mg/dL (8.4-10.2); CREATININE, serum 0.86 (0.66-1.25); POTASSIUM 3.3 mmol/L (3.4-5.0)
[2020-12-17 13:21] LABS: ANISOCYTOSIS 3+; LYMPHOCYTE 1 % (20.0-51.0); NEUTROPHILS 96 % (42.0-75.2); PLATELET ESTIMATE NORMAL (NORMAL)
[2020-12-17 13:22] LABS: HYPOCHROMIA 4+; OVALOCYTES 1+; POIKILOCYTOSIS 1+
[2020-12-17 16:00] VITALS: BP 128/84; PULSE 108; TEMP 98.5
--- NOTE | 2020-12-17 17:30 | NUR ---
Sched medications administered. Pt denies further needs. Call light in reach.
[2020-12-17 20:14] VITALS: BP 131/92; PULSE 114; TEMP 98.6
[2020-12-18 00:57] VITALS: BP 143/98; PULSE 103; TEMP 98.3
--- NOTE | 2020-12-18 03:39 | NUR ---
Assessment completed, alert and oriented. Gets up to bedside commode independently. VS are stable. Reports generalized pain that are unchanged. PRN Morphine given. Breathing respiratory status is unchanged and remains poor. Lungs are coarse through out with wheezing. The new PICC line function well. The swelling gone down a little bit in his arm. No further complains noted and denies needs at this time. Continue to follow.
[2020-12-18 05:08] VITALS: BP 162/96; PULSE 110; TEMP 98.4
[2020-12-18 06:39] LABS: MEAN CELL VOLUME 91 fl (80.0-100.0); MEAN CORPUSCULAR HGB CONC 28 g/dl (33.0-37.0); MEAN PLATELET VOLUME 11.4 fl (7.4-10.4); PLATELET COUNT 295 K/mm3 (130-400); RED BLOOD COUNT 3.71 M/mm3 (4.20-5.60); REDCELL DISTRIBUTION WIDTH-CV 19.5 % (11.5-14.5)
[2020-12-18 06:47] LABS: CALCIUM 8.8 mg/dL (8.4-10.2); HEMATOCRIT 33.8 % (42.0-52.0); HEMOGLOBIN 9.3 g/dl (13.5-18.0); MEAN CORPUSCULAR HEMOGLOBIN 25 pg (27.0-31.0); POTASSIUM 3.5 mmol/L (3.4-5.0)
[2020-12-18 07:25] LABS: ANISOCYTOSIS 2+; BAND 1 % (0-10); LYMPHOCYTE 4 % (20.0-51.0); METAMYELOCYTE 2 % (0-0); NEUTROPHILS 91 % (42.0-75.2); NUCLEATED RED BLOOD CELL 1 (0-6); PLATELET ESTIMATE NORMAL (NORMAL)
[2020-12-18 08:37] VITALS: BP 158/94; PULSE 110; TEMP 98.9
--- NOTE | 2020-12-18 09:27 | NUR ---
PT SITTING UP ON SIDE OF BED. MORNING MEDICATIONS GIVEN. PT DENIES ANY NEW ONSET OF PAIN, JUST CHRONIC ACHING. LUNG SOUNDS OF COARSE CRACKLES UPON AUSCULTATION. PT ON 3L OF OXYGEN. 2+ EDEMA ON UPPER AND LOWER BILATERAL EXTREMITIES. YARON HOSE APPLIED TO LEGS. WILL CONTINUE TO MONITOR.
[2020-12-18 11:35] VITALS: BP 129/90; PULSE 113; TEMP 98.6
[2020-12-18 16:55] VITALS: BP 114/86; PULSE 70; TEMP 97.7
[2020-12-18 19:43] VITALS: BP 145/95; PULSE 110; TEMP 98.4
--- NOTE | 2020-12-18 22:32 | NUR ---
Pt Has been complaining of SOB.Not currently on Bipap.Pt lloks really swollen.Will continue to monitor.
[2020-12-19] VITALS: BP 137/99; PULSE 102; TEMP 98.6
[2020-12-19 04:00] VITALS: BP 153/99; PULSE 112; TEMP 97.5
[2020-12-19 07:10] LABS: POTASSIUM 3.9 mmol/L (3.4-5.0)
[2020-12-19 07:34] VITALS: BP 141/89; PULSE 102; TEMP 98.4
[2020-12-19 08:13] LABS: MEAN CELL VOLUME 90 fl (80.0-100.0); MEAN CORPUSCULAR HGB CONC 28 g/dl (33.0-37.0); MEAN PLATELET VOLUME 11.7 fl (7.4-10.4); PLATELET COUNT 312 K/mm3 (130-400); RED BLOOD COUNT 3.76 M/mm3 (4.20-5.60); REDCELL DISTRIBUTION WIDTH-CV 19.8 % (11.5-14.5)
[2020-12-19 08:16] LABS: HEMATOCRIT 33.9 % (42.0-52.0); HEMOGLOBIN 9.4 g/dl (13.5-18.0); MEAN CORPUSCULAR HEMOGLOBIN 25 pg (27.0-31.0)
[2020-12-19 08:18] LABS: CALCIUM 8.8 mg/dL (8.4-10.2); CREATININE, serum 0.75 (0.66-1.25)
[2020-12-19 08:47] LABS: BAND 2 % (0-10); LYMPHOCYTE 2 % (20.0-51.0); METAMYELOCYTE 2 % (0-0); NEUTROPHILS 89 % (42.0-75.2); OVALOCYTES 1+; PLATELET ESTIMATE NORMAL (NORMAL); TEAR DROP CELLS 1+
--- NOTE | 2020-12-19 09:02 | NUR ---
Pt awake and alert upon entry, spouse in room, no C/O pain at this time. Shift assessment complete, left Pt in bed lowest position, call light in reach.
[2020-12-19 11:36] VITALS: BP 144/80; PULSE 121; TEMP 98.5
--- NOTE | 2020-12-19 14:12 | NUR ---
GAIL attended clinical rounds. The patient's life partner, Daphne, at bedside. The patient states that his oncologist, Dr. Bonilla, came to see him yesterday. He states that he was having a panic attack during that time though and can not recall their conversation. The patient reports that he is interested in home hospice. GAIL then followed up with the patient and Daphne and educated them on home hospice and the hospice house. Daphne asked SW what the difference between going home with just home health vs hospice. GAIL explained the differences. The patient reports that he does not want to have to come back to the hospital and wants to pursue home hospice. SW provided them with Medicare.gov's list of hospice agencies that serve [place]. The patient and Daphne chose [facility]. GAIL contacted and faxed a referral to Keo at [facility]. Keo reports that he will come up to the hospital today to visit with the patient and Daphne and to complete some paperwork. GAIL notified the patient and Daphne of this. GAIL updated the clinical team. *Discharge plan: home with hospice tomorrow, 12/20*
[2020-12-19 16:11] VITALS: BP 154/94; PULSE 113; TEMP 98.1
[2020-12-19 19:45] VITALS: BP 185/130; PULSE 112; TEMP 97.9
--- NOTE | 2020-12-19 23:39 | NUR ---
Patient assessed around 2114. Given scheduled Morphine at bedtime, and PRN morphine once so far this shift for generalized pain all over. PICC to LUE. Continues to have SOB and dyspnea. Coarse crackles throughout with moist cough. On oxygen at 3.5 L/min via NC. Voices no questions, needs, or concerns at this time. Call light within reach.
[2020-12-20 00:19] VITALS: BP 140/92; PULSE 106; TEMP 98.4
--- NOTE | 2020-12-20 04:14 | NUR ---
Patient has voiced no questions, needs, or concern during the night. Resting with call light within reach.
[2020-12-20 04:28] VITALS: BP 153/95; PULSE 106; TEMP 98
[2020-12-20 07:04] LABS: CALCIUM 8.9 mg/dL (8.4-10.2); CREATININE, serum 0.8 (0.66-1.25); POTASSIUM 4.3 mmol/L (3.4-5.0)
[2020-12-20 07:06] LABS: MEAN CELL VOLUME 90 fl (80.0-100.0); MEAN CORPUSCULAR HGB CONC 28 g/dl (33.0-37.0); MEAN PLATELET VOLUME 11.9 fl (7.4-10.4); PLATELET COUNT 328 K/mm3 (130-400); RED BLOOD COUNT 3.96 M/mm3 (4.20-5.60); REDCELL DISTRIBUTION WIDTH-CV 20.1 % (11.5-14.5)
[2020-12-20 07:08] LABS: HEMATOCRIT 35.7 % (42.0-52.0); HEMOGLOBIN 9.8 g/dl (13.5-18.0); MEAN CORPUSCULAR HEMOGLOBIN 25 pg (27.0-31.0)
[2020-12-20 07:40] VITALS: BP 153/107; PULSE 109; TEMP 98.2
[2020-12-20 08:06] LABS: BAND 4 % (0-10); HYPOCHROMIA 2+; LYMPHOCYTE 4 % (20.0-51.0); METAMYELOCYTE 6 % (0-0); MYELOCYTE 1 % (0-0); NEUTROPHILS 81 % (42.0-75.2)
[2020-12-20 08:07] LABS: ANISOCYTOSIS 2+
--- NOTE | 2020-12-20 09:35 | NUR ---
PT RESTING IN BED, AT BEDSIDE. LUNG SOUNDS ARE DIMINSHED WITH COARSE CRACKLES IN ALL FLORES. PT ON 3L OF OXYGEN AT THIS TIME. MORNING MEDICATIONS GIVEN. PT STATES HE HAS NORMAL CRONIC PAIN, MORNING SCHEDULED MORPHINE GIVEN. PICC LINE IS PATENT AND GOT BLOOD RETURN. CALL LIGHT WITHIN REACH. WILL CONTINUE TO MONITOR.
[2020-12-20] MEDS ORDERED: PULMICORT0.5 MG/2 M IH (10:15)
[2020-12-20] MEDS ORDERED: ROXANOL 20MG20 MG/ML PO (10:18)
[2020-12-20] MEDS ORDERED: SENOKOT S 50 MG1 TAB PO (10:19)
--- NOTE | 2020-12-20 10:35 | NUR ---
Keo, at [facility], reports that they are able to accept the patient for service and have completed paperwork with the patient and Daphne already. GAIL updated the clinical team. GAIL attended clinical rounds. The patient's life [facility], [facility] The patient is to discharge back home with Daphne today, 12/20, with home hospice from [facility]. Transportation was scheduled at 1330, via private vehicle. GAIL notified and faxed d/c orders to Keo at [facility]. Keo reports that they will meet the patient at [facility] at their home around 1400. GAIL presented and read the IM form outloud to the patient. The patient verbalized understanding and gave GAIL approval to sign the form on his behalf. SW provided him with a copy. No additional needs at this time.
[2020-12-20 11:54] VITALS: BP 153/101; PULSE 109; TEMP 98.4
== END 2020-12-20 14:05 | disposition hospice, home (50) | DRG 190 ==
LOC: COL.ER 08:17 → MEDICAL 11:29
PROVIDERS: Emergency Medicine; Internal Medicine; Physician Assistant; ADMIT Emergency Medicine
PROC: 02HV33Z Insertion of Infusion Device into Superior Vena Cava, Percutaneous Approach (ICD-10-PCS; principal; 2020-12-17)
PROC: 5A09357 Assistance with Respiratory Ventilation, Less than 24 Consecutive Hours, Continuous Positive Airway Pressure (ICD-10-PCS; 2020-12-19)
DX: J44.1 Chronic obstructive pulmonary disease with (acute) exacerbation (principal); J96.21 Acute and chronic respiratory failure with hypoxia; J90 Pleural effusion, not elsewhere classified; G89.29 Other chronic pain; D64.9 Anemia, unspecified; F32.9 Major depressive disorder, single episode, unspecified; K21.9 Gastro-esophageal reflux disease without esophagitis; I10 Essential (primary) hypertension; E11.65 Type 2 diabetes mellitus with hyperglycemia; E87.6 Hypokalemia; I27.20 Pulmonary hypertension, unspecified; Z87.891 Personal history of nicotine dependence; Z20.822 Contact with and (suspected) exposure to COVID-19; T38.0X5A Adverse effect of glucocorticoids and synthetic analogues, initial encounter; Z85.118 Personal history of other malignant neoplasm of bronchus and lung; Z79.82 Long term (current) use of aspirin; Z51.5 Encounter for palliative care; E11.40 Type 2 diabetes mellitus with diabetic neuropathy, unspecified
CPT/HCPCS: 99232-AI; 99233-AI; 99239; C1751; C1892; J0692; J1650; J1815; J1940; J2060; J2920; J2930; J3370; J3475; J7050; Q9967